=== PATIENT | female | born 1970 | race American Indian/Alaskan Native ===

== ENCOUNTER 2017-12-27 22:21 | Emergency (ER) | payer MEDICAID ==
[2017-12-27] MEDS ORDERED: MOTRIN ONE (22:48)
[2017-12-27] MEDS: TYLENOL PO ONE (22:57)
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
[2017-12-28 01:32] VITALS: BP 169/96
== END 2017-12-28 01:25 | disposition home or self-care (01) ==
LOC: ED 22:21
DX: S39.012A Strain of muscle, fascia and tendon of lower back, initial encounter (principal); S13.4XXA Sprain of ligaments of cervical spine, initial encounter; S86.911A Strain of unspecified muscle(s) and tendon(s) at lower leg level, right leg, initial encounter; S46.911A Strain of unspecified muscle, fascia and tendon at shoulder and upper arm level, right arm, initial encounter; I10 Essential (primary) hypertension; E11.9 Type 2 diabetes mellitus without complications; V49.49XA Driver injured in collision with other motor vehicles in traffic accident, initial encounter; Y93.89 Activity, other specified; Y92.89 Other specified places as the place of occurrence of the external cause; Y99.8 Other external cause status
CPT/HCPCS: 72040; 72100

== ENCOUNTER 2019-02-22 06:19 | Inpatient (IN) | payer MEDICARE ==
[2019-02-22] MEDS ORDERED: MORPHINE IV ONE (06:49)
--- NOTE | 2019-02-22 07:08 | Emergency Department Report ---
ED Chest Pain HPI - General Chief Complaint: Chest Pain Stated Complaint: RT SIDE LEG PAIN/SWELLING Time Seen by Provider: 02/22/19 06:44 Source: patient, EMS Mode of arrival: Stretcher Limitations: No Limitations - History of Present Illness Initial Comments: 49-year-old -[place] female presents to the emergency department from home with the complaints of severe right leg pain and chest pain. The right leg pain has been going on since yesterday and has been getting progressively worse and is associated with swelling of the right leg. There has been no trauma or injury to the affected right leg. She denies any skin color change, fluctuance, rash, lesions. She denies any recent surgery, immobility or any recent long car or plane rides. The patient says that the chest pain started earlier this morning but has gotten better and is mild currently. It is midsternal and nonradiating. She has a past medical history of diabetes, coronary artery disease with previous [place] and cardiac stents, end-stage renal disease not on hemodialysis and previous CVA without residual deficits. Her primary care physician is a Dr. Horn, billing assistant is Dr. Dixon and technology instructor is Dr. Lantigua. She took some Tylenol for her symptoms without any relief. She denies any tobacco or illicit drug use. Severity scale (0 -10): 10 - Related Data Home Medications Medication Instructions Recorded Confirmed Last Taken Carvedilol [Coreg] 25 mg PO BID 12/30/17 02/22/19 1 Day Ago ~02/21/19 Gabapentin [Neurontin] 100 mg PO TID 12/30/17 02/22/19 1 Day Ago ~02/21/19 Aspirin [Aspirin BABY CHEW TAB] 81 mg PO QDAY 02/22/19 02/22/19 1 Day Ago ~02/21/19 Bidil 20/37.5MG See Protocol PO TID 02/22/19 02/22/19 1 Day Ago ~02/21/19 Calcium Citrate/Vitamin D3 1 each PO DAILY 02/22/19 02/22/19 1 Day Ago [Calcitrate + Vit D Caplet] ~02/21/19 Insulin Aspart [NovoLOG 100 10 units SUB-Q TID 02/22/19 02/22/19 1 Day Ago UNITS/ML VIAL] ~02/21/19 Insulin Glargine [Lantus VIAL] 18 units SUB-Q HS 02/22/19 02/22/19 1 Day Ago ~02/21/19 Allergies Allergy/AdvReac Type Severity Reaction Status Date / Time ibuprofen [From Motrin] AdvReac Unknown Verified 12/27/17 22:53 lisinopril AdvReac Unknown Verified 02/22/19 07:08 sulfamethoxazole AdvReac Unknown Verified 12/27/17 22:53 [From Bactrim] trimethoprim [From Bactrim] AdvReac Unknown Verified 12/27/17 22:53 Heart Score - HEART Score History: Moderately suspicious EKG: Non-specific Age: 45-65 Risk factors: 1-2 risk factors Troponin: 1-3x normal limit HEART Score: 5 - Critical Actions Critical Actions: 4-6 pts:12-16.6% risk of adverse cardiac event. Should be admitted ED Review of Systems ROS: Stated complaint: RT SIDE LEG PAIN/SWELLING Other details as noted in HPI Comment: All other systems reviewed and negative Constitutional: denies: chills, fever Eyes: denies: eye pain, vision change ENT: denies: ear pain, throat pain Respiratory: denies: cough, shortness of breath Cardiovascular: chest pain, edema. denies: palpitations Gastrointestinal: denies: abdominal pain, nausea, vomiting Genitourinary: denies: dysuria, discharge Musculoskeletal: arthralgia, myalgia Skin: denies: rash, lesions Neurological: denies: headache, weakness, numbness, paresthesias ED Past Medical Hx - Past Medical History Previous Medical History?: Yes Hx Hypertension: Yes Hx Diabetes: Yes Hx Renal Disease: Yes Additional medical history: CHF, AMIx2 - Surgical History Past Surgical History?: Yes Additional Surgical History: tubal ligation, uterine ablation, multiple bilateral eye sx - Social History Smoking Status: Never Smoker Substance Use Type: None - Medications Home Medications: Home Medications Medication Instructions Recorded Confirmed Last Taken Type Carvedilol [Coreg] 25 mg PO BID 12/30/17 02/22/19 1 Day Ago History ~02/21/19 Gabapentin [Neurontin] 100 mg PO TID 12/30/17 02/22/19 1 Day Ago History ~02/21/19 Aspirin [Aspirin BABY CHEW TAB] 81 mg PO QDAY 02/22/19 02/22/19 1 Day Ago History ~02/21/19 Bidil 20/37.5MG See Protocol PO TID 02/22/19 02/22/19 1 Day Ago History ~02/21/19 Calcium Citrate/Vitamin D3 1 each PO DAILY 02/22/19 02/22/19 1 Day Ago History [Calcitrate + Vit D Caplet] ~02/21/19 Insulin Aspart [NovoLOG 100 10 units SUB-Q TID 02/22/19 02/22/19 1 Day Ago History UNITS/ML VIAL] ~02/21/19 Insulin Glargine [Lantus VIAL] 18 units SUB-Q HS 02/22/19 02/22/19 1 Day Ago History ~02/21/19 ED Physical Exam - General Limitations: No Limitations - Other Other exam information: GENERAL: The patient is well-developed well-nourished. HENT: Normocephalic. Atraumatic. Patient has moist mucous membranes. EYES: Extraocular motions are intact. NECK: Supple. Trachea is midline. CHEST/LUNGS: Clear to auscultation. There is no respiratory distress noted. HEART/CARDIOVASCULAR: Regular. There is no tachycardia. There is no murmur. ABDOMEN: Abdomen is soft, nontender. Patient has normal bowel sounds. There is no abdominal distention. SKIN: Skin is warm and dry. Mild to moderate right lower extremity nonpitting swelling. NEURO: The patient is awake, alert, and oriented. The patient is cooperative. The patient has no focal neurologic deficits. Normal speech. MUSCULOSKELETAL: There is tenderness to palpation along the entire length of the right lower extremity. There is no limitation range of motion. There is no evidence of acute injury. ED Course Vital Signs 02/22/19 02/22/19 02/22/19 06:25 06:30 07:23 Temperature 98.7 F Pulse Rate 87 Respiratory 18 18 18 Rate Blood Pressure 159/71 Blood Pressure 159/71 [Left] O2 Sat by Pulse 90 90 Oximetry 02/22/19 02/22/19 02/22/19 08:52 09:00 09:15 Temperature Pulse Rate 89 88 90 Respiratory 19 26 H Rate Blood Pressure 164/75 160/77 Blood Pressure [Left] O2 Sat by Pulse 86 80 L Oximetry 02/22/19 02/22/19 02/22/19 09:30 09:45 10:00 Temperature Pulse Rate 89 89 88 Respiratory 24 25 H 13 Rate Blood Pressure 167/79 153/76 147/81 Blood Pressure [Left] O2 Sat by Pulse 81 L 81 L 89 Oximetry 02/22/19 02/22/19 10:15 10:30 Temperature Pulse Rate 87 88 Respiratory 18 24 Rate Blood Pressure 168/82 157/79 Blood Pressure [Left] O2 Sat by Pulse 84 79 L Oximetry EDNA score - Edna Score Age > 65: (0) No Aspirin use within the Past 7 Days: (0) No 3 or more CAD Risk Factors: (1) Yes 2 or more Angina events in past 24 hrs: (0) No Known CAD with more than 50% Stenosis: (0) No Elevated Cardiac Markers: (1) Yes ST Deviation Greater than 0.5mm: (0) No EDNA Score: 2 ED Medical Decision Making - Lab Data Result diagrams: 02/22/19 07:31 02/22/19 07:31 - EKG Data -: EKG Interpreted by Me EKG shows normal: sinus rhythm, axis (Right axis deviation), intervals, QRS complexes (RVH), ST-T waves Rate: normal - EKG Data When compared to previous EKG there are: no significant change Interpretation: unchanged when compared t (12/30/17) - Radiology Data Radiology results: report reviewed, image reviewed interpreted by me: Chest x-ray does not show any acute process. There are no pleural effusions, obvious pneumonia and there is no pneumothorax. VL venous duplex LE BILAT INDICATION / CLINICAL INFORMATION: LE pain and swelling. COMPARISON: None available. FINDINGS: No evidence of deep vein thrombosis IMPRESSION: 1. No evidence of deep vein thrombosis. Ventilation/perfusion lung scan HISTORY: Chest pain. Elevated d-dimer. Compared with 01/01/2018. Images following inhalation of 14.2 mCi xenon gas demonstrate relatively homogeneous uptake throughout both lungs. Perfusion images, performed following intravenous injection of 6.2 mCi technetium MAA, also show fairly homogeneous activity throughout both lungs. The heart is enlarged. Images are compared with chest radiograph done earlier today. IMPRESSION: Low probability of pulmonary embolus. - Medical Decision Making This patient presents with a 24-hour history of right leg pain and swelling and some more recent midsternal chest pain. Venous Doppler ultrasound of the right lower extremity was negative for DVT. She did have an elevated d-dimer so a VQ scan was done and came back low probability for a PE. Chest x-ray did not appear to show any obvious acute process but was read by radiology as a possible right lateral linear density that could show some infiltrate. Patient has an elevated troponin but does have a history of chronic kidney disease. She has a moderate heart score. The patient will be admitted to the hospital for further evaluation and treatment was accepted for admission by the hospitalist service and Dr Sorto. - Differential Diagnosis FL, DVT, Pneumonia, PE Critical Care Time: No Critical care attestation.: If time is entered above; I have spent that time in minutes in the direct care of this critically ill patient, excluding procedure time. ED Disposition Clinical Impression: Acute chest pain, Right leg pain, Right leg swelling CKD (chronic kidney disease) Qualifiers: Chronic kidney disease stage: unspecified stage Qualified Code(s): N18.9 - Chronic kidney disease, unspecified HTN (hypertension) Qualifiers: Hypertension type: essential hypertension Qualified Code(s): I10 - Essential (primary) hypertension Disposition: OP ADMIT IP TO THIS HOSP Is pt being admited?: Yes Condition: Fair Time of Disposition: 10:21
--- NOTE | 2019-02-22 07:42 | XRay Report ---
CHEST 1 VIEW 0718 INDICATION / CLINICAL INFORMATION: CP. COMPARISON: 12/30/2017 FINDINGS: SUPPORT DEVICES: None HEART / MEDIASTINUM: Mild cardiomegaly LUNGS / PLEURA: Poor degree of inspiration is seen. Increasing density is noted in the left base, par ticularly laterally, which may represent developing infiltrate. There may also be a small left pleura l effusion. Right lung field is clear. No pneumothorax. ADDITIONAL FINDINGS: No significant additional findings. IMPRESSION: Development distally in the left base as above. Recommend follow-up. Signer Name: Bobby Sorto MD Signed: 02/22/2019 7:37 AM Workstation Name: [id number]
[2019-02-22 08:09] LABS: Albumin 2.8 g/dL (3.9-5); Calcium 9.2 mg/dL (8.4-10.2)
[2019-02-22 08:51] LABS: INR 1.15 (0.87-1.13); Partial Thromboplastin Time 30.4 Sec. (24.2-36.6)
[2019-02-22 08:56] LABS: Basophils # (Auto) 0.1 K/mm3 (0.0-0.1); Basophils % (Auto) 0.7 % (0.0-1.8); Eosinophils # (Auto) 0.2 K/mm3 (0.0-0.4); Hematocrit 32.5 % (30.3-42.9); Hemoglobin 10.8 gm/dl (10.1-14.3); Lymphocytes # (Auto) 0.9 K/mm3 (1.2-5.4); Mean Corpuscular HGB Conc 33 % (30-34); Mean Corpuscular Volume 89 fl (79-97); Monocytes # (Auto) 0.9 K/mm3 (0.0-0.8); Monocytes % (Auto) 10.7 % (0.0-7.3); Platelet Count 213 K/mm3 (140-440); Red Blood Count 3.67 M/mm3 (3.65-5.03); Red Cell Distribution Width 17.1 % (13.2-15.2)
--- NOTE | 2019-02-22 09:05 | Vascular Lab Report ---
VL venous duplex LE BILAT INDICATION / CLINICAL INFORMATION: LE pain and swelling. COMPARISON: None available. FINDINGS: No evidence of deep vein thrombosis IMPRESSION: 1. No evidence of deep vein thrombosis. Signer Name: Uday Salinas MD Signed: 02/22/2019 9:01 AM Workstation Name: [email or web address]
--- NOTE | 2019-02-22 11:47 | Nuclear Medicine Report ---
Ventilation/perfusion lung scan HISTORY: Chest pain. Elevated d-dimer. Compared with 01/01/2018. Images following inhalation of 14.2 mCi xenon gas demonstrate relatively homogeneous uptake throughou t both lungs. Perfusion images, performed following intravenous injection of 6.2 mCi technetium MAA, also show fair ly homogeneous activity throughout both lungs. The heart is enlarged. Images are compared with chest radiograph done earlier today. IMPRESSION: Low probability of pulmonary embolus. Signer Name: Uday Salinas MD Signed: 02/22/2019 11:43 AM Workstation Name: [id number]
[2019-02-22] MEDS ORDERED: D50W (25GM) Syringe IV PRN (12:39)
[2019-02-22] MEDS ORDERED: TYLENOL PO PRN (12:39)
[2019-02-22] MEDS ORDERED: SODIUM CHLORIDE FLUSH SYRINGE 10 ML IV PRN (12:39)
[2019-02-22] MEDS ORDERED: ZOFRAN IV PRN (12:39)
--- NOTE | 2019-02-22 12:53 | Progress Note ---
Assessment and Plan Assessment and plan: Chest pain. Patient will be placed on a chest pain protocol and monitor closely. Follow-up cardiac isoenzymes and serial EKGs. Cardiology consultation. I suspect pain may be later costochondritis. Pain is reproducible on palpation. Acute gouty arthritis. Given her renal disease we will start prednisone daily. ESRD, not on HD. Patient was pre-was seen by Dr. Abraham on last hospitalization. Consult nephrology. Metabolic acidosis. Secondary to renal disease. Continue to monitor. Chronic systolic heart failure. Compensated. Continue home medications. Type 2 diabetes mellitus; Accu-Chek sliding scale coverage and ADA diet and insulin Diabetic neuropathy; supportive care and, gabapentin Hypertension; moderate control, continue current antihypertensives and when necessary medications Morbid obesity; BMI 42.5; diet modification and exercise as tolerated with weight reduction when medically stable History Interval history: 49-year-old -[place] female with a past medical history of diabetes, gout, coronary artery disease with previous [place] and cardiac stents, end-stage renal disease not on hemodialysis and previous CVA without residual deficits who presents to the emergency department from home with the complaints of severe ri ght leg pain and chest pain. The right leg pain has been going on since yesterday and has been getting progressively worse and is associated with swelling of the right foot. There has been no trauma or injury to the right foot. She denies any skin color change, fluctuance, rash, lesions. She denies any recent surgery, immobility or any recent long car or plane rides. The patient says that the chest pain started earlier this morning but has gotten better and is mild currently. It is midsternal and nonradiating. The patient reports reproducible chest pain with palpation on my exam. Her primary care physician is a Dr. Horn, brush hand is Dr. Dixon and caustic mixer is Dr. Lantigua. She took some Tylenol for her symptoms without any relief. She denies any tobacco or illicit drug use. The patient reports that her right foot pain is similar to her gout but much worse. Patient denies any fever or chills. Hospitalist Physical - Constitutional Vitals: Temp Pulse Resp BP Pulse Ox 98.6 F 83 18 145/67 92 02/22/19 12:35 02/22/19 12:35 02/22/19 12:35 02/22/19 12:35 02/22/19 12:35 General appearance: Present: no acute distress, well-nourished - EENT Eyes: Present: PERRL, EOM intact ENT: hearing intact, clear oral mucosa, dentition normal - Neck Neck: Present: supple, normal ROM - Respiratory Respiratory effort: normal Respiratory: bilateral: CTA - Cardiovascular Rhythm: regular Heart Sounds: Present: S1 & S2. Absent: gallop, rub - Extremities Extremities: no ischemia, No edema, Full ROM Extremity abnormal: edema (right foot), tenderness (right foot) - Abdominal General gastrointestinal: soft, non-tender, non-distended, normal bowel sounds - Integumentary Integumentary: Present: clear, warm, dry - Neurologic Neurologic: CNII-XII intact, moves all extremities Results - Labs CBC & Chem 7: 02/22/19 07:31 02/22/19 07:31 Labs: Laboratory Last Values WBC 8.4 K/mm3 (4.5-11.0) 02/22/19 07:31 RBC 3.67 M/mm3 (3.65-5.03) 02/22/19 07:31 Hgb 10.8 gm/dl (10.1-14.3) 02/22/19 07:31 Hct 32.5 % (30.3-42.9) 02/22/19 07:31 MCV 89 fl (79-97) 02/22/19 07:31 MCH 29 pg (28-32) 02/22/19 07:31 MCHC 33 % (30-34) 02/22/19 07:31 RDW 17.1 % (13.2-15.2) H 02/22/19 07:31 Plt Count 213 K/mm3 (140-440) 02/22/19 07:31 Lymph % (Auto) 11.0 % (13.4-35.0) L 02/22/19 07:31 Josephine % (Auto) 10.7 % (0.0-7.3) H 02/22/19 07:31 Eos % (Auto) 2.0 % (0.0-4.3) 02/22/19 07:31 Baso % (Auto) 0.7 % (0.0-1.8) 02/22/19 07:31 Lymph # 0.9 K/mm3 (1.2-5.4) L 02/22/19 07:31 Josephine # 0.9 K/mm3 (0.0-0.8) H 02/22/19 07:31 Eos # 0.2 K/mm3 (0.0-0.4) 02/22/19 07:31 Baso # 0.1 K/mm3 (0.0-0.1) 02/22/19 07:31 Seg Neutrophils % 75.6 % (40.0-70.0) H 02/22/19 07:31 Seg Neutrophils # 6.3 K/mm3 (1.8-7.7) 02/22/19 07:31 PT 14.4 Sec. (12.2-14.9) 02/22/19 07:31 INR 1.15 (0.87-1.13) H 02/22/19 07:31 APTT 30.4 Sec. (24.2-36.6) 02/22/19 07:31 874.61 ng/mlDDU (0-234) H 02/22/19 07:31 Sodium 136 mmol/L (137-145) L 02/22/19 07:31 Potassium 4.2 mmol/L (3.6-5.0) 02/22/19 07:31 Chloride 103.8 mmol/L (98-107) 02/22/19 07:31 Carbon Dioxide 16 mmol/L (22-30) L 02/22/19 07:31 20 mmol/L 02/22/19 07:31 BUN 55 mg/dL (7-17) H 02/22/19 07:31 4.5 mg/dL (0.7-1.2) H 02/22/19 07:31 Estimated GFR 13 ml/min 02/22/19 07:31 12 % 02/22/19 07:31 Glucose 168 mg/dL (65-100) H 02/22/19 07:31 Calcium 9.2 mg/dL (8.4-10.2) 02/22/19 07:31 0.60 mg/dL (0.1-1.2) 02/22/19 07:31 AST 11 units/L (5-40) 02/22/19 07:31 ALT 14 units/L (7-56) 02/22/19 07:31 68 units/L (35-129) 02/22/19 07:31 0.059 ng/mL (0.00-0.029) H 02/22/19 09:33 6.8 g/dL (6.3-8.2) 02/22/19 07:31 2.8 g/dL (3.9-5) L 02/22/19 07:31 0.7 % 02/22/19 07:31 Triglycerides 103 mg/dL (2-149) 02/22/19 07:31 Cholesterol 164 mg/dL (50-199) 02/22/19 07:31 116 mg/dL (50-130) 02/22/19 07:31 41 mg/dL (40-59) 02/22/19 07:31 4.00 % 02/22/19 07:31 Active Medications - Current Medications Current Medications: Generic Name Dose Route Start Last Admin Trade Name Freq PRN Reason Stop Dose Admin Acetaminophen 650 mg 02/22/19 12:39 Tylenol PO Q4H PRN Pain MILD(1-3)/Fever >100.5/AMARO Dextrose 50 ml 02/22/19 12:39 D50w (25gm) Syringe IV PRN PRN Hypoglycemia Enoxaparin Sodium 40 mg 02/23/19 10:00 Lovenox SUB-Q QDAY MARISSA Ondansetron HCl 4 mg 02/22/19 12:39 Zofran IV Q8H PRN Nausea And Vomiting Prednisone 40 mg 02/23/19 10:00 Deltasone PO QDAY MARISSA Sodium Chloride 10 ml 02/22/19 22:00 Sodium Chloride Flush Syringe 10 Ml IV BID MARISSA Sodium Chloride 10 ml 02/22/19 12:39 Sodium Chloride Flush Syringe 10 Ml IV PRN PRN LINE FLUSH
[2019-02-22] MEDS: MORPHINE IV PRN (14:11)
--- NOTE | 2019-02-22 14:39 | Consultation ---
History of Present Illness Consult date: 02/22/19 Requesting physician: ESE SPENCER Consult reason: chest pain History of present illness: Ms. Nathan is a 49 y/o female with a medical history significant for CAD s/p PCI (~2014), DC, chronic HFrEF, CKD, a family history of CAD (mother), hypertension, h/o CVA and diabetes who presented to [facility] with midsternal chest pain and right leg pain/swelling. She follows with a multimedia authoring specialist at [place]. The CP began early this morning, is nonradiating and is reproducible on palpation. It occurs with activity and at rest. She denies accompanyint SOB. Troponins mildly elevated, but flat. VQ scan shows low probability for PE and RLE US negative for DVT. EKG unremarkable. An echocardiogram in 2019 found an of EF 25-30%, a small circumferential pericardial effusion, grade 3 diastolic dysfunction and [id number] MR. Past History Past Medical History: CAD, diabetes, GERD, heart failure, hypertension, stroke Medications and Allergies Allergies Allergy/AdvReac Type Severity Reaction Status Date / Time ibuprofen [From Motrin] AdvReac Unknown Verified 12/27/17 22:53 lisinopril AdvReac Unknown Verified 02/22/19 07:08 sulfamethoxazole AdvReac Unknown Verified 12/27/17 22:53 [From Bactrim] trimethoprim [From Bactrim] AdvReac Unknown Verified 12/27/17 22:53 Home Medications Medication Instructions Recorded Confirmed Last Taken Type Carvedilol [Coreg] 25 mg PO BID 12/30/17 02/22/19 1 Day Ago History ~02/21/19 Gabapentin [Neurontin] 100 mg PO TID 12/30/17 02/22/19 1 Day Ago History ~02/21/19 Aspirin [Aspirin BABY CHEW TAB] 81 mg PO QDAY 02/22/19 02/22/19 1 Day Ago History ~02/21/19 Bidil 20/37.5MG See Protocol PO TID 02/22/19 02/22/19 1 Day Ago History ~02/21/19 Calcium Citrate/Vitamin D3 1 each PO DAILY 02/22/19 02/22/19 1 Day Ago History [Calcitrate + Vit D Caplet] ~02/21/19 Insulin Aspart [NovoLOG 100 10 units SUB-Q TID 02/22/19 02/22/19 1 Day Ago History UNITS/ML VIAL] ~02/21/19 Insulin Glargine [Lantus VIAL] 18 units SUB-Q HS 02/22/19 02/22/19 1 Day Ago History ~02/21/19 Active Meds: Active Medications Acetaminophen (Tylenol) 650 mg PO Q4H PRN PRN Reason: Pain MILD(1-3)/Fever >100.5/AMARO Dextrose (D50w (25gm) Syringe) 50 ml IV PRN PRN PRN Reason: Hypoglycemia Enoxaparin Sodium (Lovenox) 30 mg SUB-Q QDAY MARISSA Morphine Sulfate (Morphine) 2 mg IV Q6H PRN PRN Reason: Pain, Moderate (4-6) Last Admin: 02/22/19 14:11 Dose: 2 mg Documented by: Ondansetron HCl (Zofran) 4 mg IV Q8H PRN PRN Reason: Nausea And Vomiting Pneumococcal Polyvalent Vaccine (Pneumovax 23) 0.5 ml IM .ONCE ONE Stop: 02/23/19 12:01 Prednisone (Deltasone) 40 mg PO QDAY MARISSA Sodium Chloride (Sodium Chloride Flush Syringe 10 Ml) 10 ml IV BID MARISSA Sodium Chloride (Sodium Chloride Flush Syringe 10 Ml) 10 ml IV PRN PRN PRN Reason: LINE FLUSH Review of Systems All systems: negative Cardiovascular: chest pain Physical Examination Vital Signs Temp Pulse Resp BP Pulse Ox 98.7 F 87 18 159/71 90 02/22/19 06:25 02/22/19 06:25 02/22/19 06:25 02/22/19 06:25 02/22/19 06:25 General appearance: no acute distress HEENT: Positive: PERRL Neck: Positive: trachea midline Cardiac: Positive: Reg Rate and Rhythm Lungs: Positive: Normal Exam Neuro: Positive: Grossly Intact Abdomen: Positive: Unremarkable Female genitourinary: deferred Skin: Positive: Clear Musculoskeletal: other (tenderness in RLE) Extremities: Present: Other (tenderness in RLE ) Results 02/22/19 07:31 02/22/19 07:31 Cardiac Enzymes 02/22/19 Range/Units 07:31 AST 11 (5-40) units/L Coagulation 02/22/19 Range/Units 07:31 PT 14.4 (12.2-14.9) Sec. INR 1.15 H (0.87-1.13) APTT 30.4 (24.2-36.6) Sec. Lipids 02/22/19 Range/Units 07:31 Triglycerides 103 (2-149) mg/dL Cholesterol 164 (50-199) mg/dL HDL Cholesterol 41 (40-59) mg/dL Cholesterol/HDL Ratio 4.00 % CBC 02/22/19 Range/Units 07:31 WBC 8.4 (4.5-11.0) K/mm3 RBC 3.67 (3.65-5.03) M/mm3 Hgb 10.8 (10.1-14.3) gm/dl Hct 32.5 (30.3-42.9) % Plt Count 213 (140-440) K/mm3 Lymph # 0.9 L (1.2-5.4) K/mm3 [place] # 0.9 H (0.0-0.8) K/mm3 Eos # 0.2 (0.0-0.4) K/mm3 Baso # 0.1 (0.0-0.1) K/mm3 Comprehensive Metabolic Panel 02/22/19 Range/Units 07:31 Sodium 136 L (137-145) mmol/L Potassium 4.2 (3.6-5.0) mmol/L Chloride 103.8 (98-107) mmol/L Carbon Dioxide 16 L (22-30) mmol/L BUN 55 H (7-17) mg/dL Creatinine 4.5 H (0.7-1.2) mg/dL Glucose 168 H (65-100) mg/dL Calcium 9.2 (8.4-10.2) mg/dL AST 11 (5-40) units/L ALT 14 (7-56) units/L Alkaline Phosphatase 68 (35-129) units/L Total Protein 6.8 (6.3-8.2) g/dL Albumin 2.8 L (3.9-5) g/dL - Imaging and Cardiology Echo: report reviewed (10/2018: EF 25-30%, small circumferential pericarcdial effusion, grade 3 diastolic dysfunction, mod-to-sev MR) - EKG Interpretation EKG: sinus rhythm EKG interpretations - Telemetry EKG Rhythm: Sinus Rhythm - EKG Sinus rhythms and dysrhythmias: sinus rhythm Chamber hypertrophy or enlargement: righ ventricular hypertro Assessment and Plan Ms. Nathan is a 49 y/o female admitted with CP. Etiology is likely noncardiac given its presentation. Troponins mildly elevated and flat, which is likely d/t renal dysfunction. Continue current cardiac management for chronic HFrEF, but hold ACEi/ARB d/t allergy and renal insufficiency. Continue BiDil as well. The patient has been seen in conjunction with Dr. Alexandra, who agrees with the assessment and plan. - Patient Problems (1) Atypical chest pain Current Visit: Yes Status: Acute (2) CKD (chronic kidney disease) Current Visit: Yes Status: Chronic Qualifiers: Chronic kidney disease stage: unspecified stage Qualified Code(s): N18.9 - Chronic kidney disease, unspecified (3) Diabetes Current Visit: Yes Status: Acute (4) Chronic HFrEF (heart failure with reduced ejection fraction) Current Visit: Yes Status: Chronic (5) HTN (hypertension) Current Visit: Yes Status: Chronic Qualifiers: Hypertension type: essential hypertension Qualified Code(s): I10 - Essenti al (primary) hypertension (6) Right leg pain Current Visit: Yes Status: Acute (7) Right leg swelling Current Visit: Yes Status: Acute (8) H/O: CVA (cerebrovascular accident) Current Visit: Yes Status: Acute
[2019-02-22] MEDS: BABY ASPIRIN PO SCH (15:55)
[2019-02-22] MEDS: SODIUM CHLORIDE FLUSH SYRINGE 10 ML IV SCH (22:26)
[2019-02-22] MEDS: COREG PO SCH (22:26)
[2019-02-22] MEDS: BIDIL 20/37.5MG PO SCH (22:26)
[2019-02-23] MEDS: MORPHINE IV PRN ×3 (05:06→22:39)
[2019-02-23] MEDS: BIDIL 20/37.5MG PO SCH ×3 (05:10→22:42)
[2019-02-23 06:04] LABS: Basophils # (Auto) 0.1 K/mm3 (0.0-0.1); Basophils % (Auto) 0.8 % (0.0-1.8); Eosinophils # (Auto) 0.3 K/mm3 (0.0-0.4); Eosinophils % (Auto) 4.2 % (0.0-4.3); Hematocrit 30.7 % (30.3-42.9); Lymphocytes # (Auto) 1.1 K/mm3 (1.2-5.4); Lymphocytes % (Auto) 15.7 % (13.4-35.0); Mean Corpuscular HGB Conc 33 % (30-34); Mean Corpuscular Volume 89 fl (79-97); Monocytes # (Auto) 0.8 K/mm3 (0.0-0.8); Monocytes % (Auto) 11.7 % (0.0-7.3); Platelet Count 192 K/mm3 (140-440); Red Blood Count 3.43 M/mm3 (3.65-5.03); Red Cell Distribution Width 16.9 % (13.2-15.2)
[2019-02-23 06:10] LABS: Calcium 8.8 mg/dL (8.4-10.2)
--- NOTE | 2019-02-23 09:37 | Consultation ---
History of Present Illness - Reason for Consult Consult date: 02/23/19 chronic renal failure - History of Present Illness patient with h/o CKD stage IV/V follow with vp biology in [place], s/p AVF placement in 12/2018, she saw her vp biology 3 weeks ago and was told she had advanced kidney disease but did not need dialysis yet, she was admitted yesterday for chest pain, V/Q scan was negative for PE< BLE Doppler negative for DVT and XR -v3 for PNA, cardiology consulted for chest pain work up and nephrology consult requested for advanced CKD Past History Past Medical History: CAD, diabetes, GERD, heart failure, hypertension, stroke Medications and Allergies Allergies Allergy/AdvReac Type Severity Reaction Status Date / Time ibuprofen [From Motrin] AdvReac Unknown Verified 12/27/17 22:53 lisinopril AdvReac Unknown Verified 02/22/19 07:08 sulfamethoxazole AdvReac Unknown Verified 12/27/17 22:53 [From Bactrim] trimethoprim [From Bactrim] AdvReac Unknown Verified 12/27/17 22:53 Home Medications Medication Instructions Recorded Confirmed Last Taken Type Carvedilol [Coreg] 25 mg PO BID 12/30/17 02/22/19 1 Day Ago History ~02/21/19 Gabapentin [Neurontin] 100 mg PO TID 12/30/17 02/22/19 1 Day Ago History ~02/21/19 Aspirin [Aspirin BABY CHEW TAB] 81 mg PO QDAY 02/22/19 02/22/19 1 Day Ago History ~02/21/19 Bidil 20/37.5MG See Protocol PO TID 02/22/19 02/22/19 1 Day Ago History ~02/21/19 Calcium Citrate/Vitamin D3 1 each PO DAILY 02/22/19 02/22/19 1 Day Ago History [Calcitrate + Vit D Caplet] ~02/21/19 Insulin Aspart [NovoLOG 100 10 units SUB-Q TID 02/22/19 02/22/19 1 Day Ago History UNITS/ML VIAL] ~02/21/19 Insulin Glargine [Lantus VIAL] 18 units SUB-Q HS 02/22/19 02/22/19 1 Day Ago History ~02/21/19 Active Meds: Active Medications Acetaminophen (Tylenol) 650 mg PO Q4H PRN PRN Reason: Pain MILD(1-3)/Fever >100.5/AMARO Aspirin (Baby Aspirin) 81 mg PO QDAY [facility] Last Admin: 02/22/19 15:55 Dose: 81 mg Documented by: Carvedilol (Coreg) 25 mg PO BID [facility] Last Admin: 02/22/19 22:26 Dose: 25 mg Documented by: Dextrose (D50w (25gm) Syringe) 50 ml IV PRN PRN PRN Reason: Hypoglycemia Enoxaparin Sodium (Lovenox) 30 mg SUB-Q QDAY [facility] Isosorbide Dinitrate/Hydralazine (Bidil 20/37.5mg) 1 each PO Q8HR [facility] Last Admin: 02/23/19 05:10 Dose: 1 each Documented by: Morphine Sulfate (Morphine) 2 mg IV Q6H PRN PRN Reason: Pain, Moderate (4-6) Last Admin: 02/23/19 05:06 Dose: 2 mg Documented by: Ondansetron HCl (Zofran) 4 mg IV Q8H PRN PRN Reason: Nausea And Vomiting Pneumococcal Polyvalent Vaccine (Pneumovax 23) 0.5 ml IM .ONCE ONE Stop: 02/23/19 12:01 Prednisone (Deltasone) 40 mg PO QDAY [facility] Sodium Chloride (Sodium Chloride Flush Syringe 10 Ml) 10 ml IV BID [facility] Last Admin: 02/22/19 22:26 Dose: 10 ml Documented by: Sodium Chloride (Sodium Chloride Flush Syringe 10 Ml) 10 ml IV PRN PRN PRN Reason: LINE FLUSH Review of Systems All systems: negative (chest pain) Exam - Vital Signs Vital signs: Vital Signs Temp Pulse Resp BP Pulse Ox 98.7 F 87 18 159/71 90 02/22/19 06:25 02/22/19 06:25 02/22/19 06:25 02/22/19 06:25 02/22/19 06:25 - General Appearance General appearance: well-developed, well-nourished, appears stated age EENT: ATNC, PERRL, mucous membranes moist Neck: Present: neck supple Respiratory: Decreased Breath Sounds Heart: regular, S1S2 Gastrointestinal: Present: normoactive bowel sounds Integumentary: no rash, warm and dry Neurologic: no focal deficit, no asterixis, alert and oriented x3 Musculoskeletal: Present: other (trace pitting edema in BLE) Psychiatric: mood/affect appropriate, cooperative Results - Lab Results 02/23/19 04:50 02/23/19 04:50 Most recent lab results Calcium 8.8 mg/dL (8.4-10.2) 02/23/19 04:50 Assessment and Plan CKD stabe IV/V secondary to HTN, unknown baseline, not on HD, s/p AVF placement in 12/2018 Chest pain, per cardiology likely non-cardiac Anemia in CKD HTN AG metabolic acidosis - no indication for [employer] CRACK OFF - will check iron panel in AM, no indication for PACHECO - will start sodium bicarb 650 mg TID - urine lytes ordered - renally dose meds - strict I&O - daily weight Temo Abraham MD [phone]
--- NOTE | 2019-02-23 09:42 | History and Physical Report ---
History of Present Illness Date of examination: 02/22/19 Date of admission: 02/22/19 10:21 Chief complaint: cp and Right foot pain History of present illness: 49-year-old -[place] female with a past medical history of diabetes, gout, coronary artery disease with previous [place] and cardiac stents, end-stage renal disease not on hemodialysis and previous CVA without residual deficits who presents to the emergency department from home with the complaints of severe right leg pain and chest pain. The right leg pain has been going on since yesterday and has been getting progressively worse and is associated with swelling of the right foot. There has been no trauma or injury to the right foot. She denies any skin color change, fluctuance, rash, lesions. She denies any recent surgery, immobility or any recent long car or plane rides. The patient says that the chest pain started earlier this morning but has gotten better and is mild currently. It is midsternal and nonradiating. The patient reports reproducible chest pain with palpation on my exam. Her primary care physician is a Dr. Horn, fast brim pouncer is Dr. Dixon and stove cleaner is Dr. Lantigua. She took some Tylenol for her symptoms without any relief. She denies any tobacco or illicit drug use. The patient reports that her right foot pain is similar to her gout but much worse. Patient denies any fever or chills. Past History Past Medical History: CAD, diabetes, GERD, heart failure, hypertension, stroke Medications and Allergies Allergies Allergy/AdvReac Type Severity Reaction Status Date / Time ibuprofen [From Motrin] AdvReac Unknown Verified 12/27/17 22:53 lisinopril AdvReac Unknown Verified 02/22/19 07:08 sulfamethoxazole AdvReac Unknown Verified 12/27/17 22:53 [From Bactrim] trimethoprim [From Bactrim] AdvReac Unknown Verified 12/27/17 22:53 Home Medications Medication Instructions Recorded Confirmed Last Taken Type Carvedilol [Coreg] 25 mg PO BID 12/30/17 02/22/19 1 Day Ago History ~02/21/19 Gabapentin [Neurontin] 100 mg PO TID 12/30/17 02/22/19 1 Day Ago History ~02/21/19 Aspirin [Aspirin BABY CHEW TAB] 81 mg PO QDAY 02/22/19 02/22/19 1 Day Ago History ~02/21/19 Bidil 20/37.5MG See Protocol PO TID 02/22/19 02/22/19 1 Day Ago History ~02/21/19 Calcium Citrate/Vitamin D3 1 each PO DAILY 02/22/19 02/22/19 1 Day Ago History [Calcitrate + Vit D Caplet] ~02/21/19 Insulin Aspart [NovoLOG 100 10 units SUB-Q TID 02/22/19 02/22/19 1 Day Ago History UNITS/ML VIAL] ~02/21/19 Insulin Glargine [Lantus VIAL] 18 units SUB-Q HS 02/22/19 02/22/19 1 Day Ago History ~02/21/19 Active Meds: Active Medications Acetaminophen (Tylenol) 650 mg PO Q4H PRN PRN Reason: Pain MILD(1-3)/Fever >100.5/AMARO Aspirin (Baby Aspirin) 81 mg PO QDAY [facility] Last Admin: 02/22/19 15:55 Dose: 81 mg Documented by: Carvedilol (Coreg) 25 mg PO BID [facility] Last Admin: 02/22/19 22:26 Dose: 25 mg Documented by: Dextrose (D50w (25gm) Syringe) 50 ml IV PRN PRN PRN Reason: Hypoglycemia Enoxaparin Sodium (Lovenox) 30 mg SUB-Q QDAY [facility] Isosorbide Dinitrate/Hydralazine (Bidil 20/37.5mg) 1 each PO Q8HR [facility] Last Admin: 02/23/19 05:10 Dose: 1 each Documented by: Morphine Sulfate (Morphine) 2 mg IV Q6H PRN PRN Reason: Pain, Moderate (4-6) Last Admin: 02/23/19 05:06 Dose: 2 mg Documented by: Ondansetron HCl (Zofran) 4 mg IV Q8H PRN PRN Reason: Nausea And Vomiting Pneumococcal Polyvalent Vaccine (Pneumovax 23) 0.5 ml IM .ONCE ONE Stop: 02/23/19 12:01 Prednisone (Deltasone) 40 mg PO QDAY [facility] Sodium Chloride (Sodium Chloride Flush Syringe 10 Ml) 10 ml IV BID [facility] Last Admin: 02/22/19 22:26 Dose: 10 ml Documented by: Sodium Chloride (Sodium Chloride Flush Syringe 10 Ml) 10 ml IV PRN PRN PRN Reason: LINE FLUSH Review of Systems All systems: negative Exam - Constitutional Vitals: Temp Pulse Resp BP Pulse Ox 99.0 F 83 18 142/67 88 02/23/19 08:01 02/23/19 08:01 02/23/19 08:01 02/23/19 08:01 02/23/19 08:01 General appearance: Present: no acute distress, well-nourished - EENT Eyes: Present: PERRL ENT: hearing intact, clear oral mucosa - Neck Neck: Present: supple, normal ROM - Respiratory Respiratory effort: normal Respiratory: bilateral: CTA - Cardiovascular Heart Sounds: Present: S1 & S2. Absent: rub, click - Extremities Extremities: pulses symmetrical Extremity abnormal: edema (right foot), tenderness (right foot) Peripheral Pulses: within normal limits - Abdominal General gastrointestinal: Present: soft, non-tender, non-distended, normal bowel sounds Female genitourinary: Present: normal - Integumentary Integumentary: Present: clear, warm, dry - Musculoskeletal Musculoskeletal: gait normal, strength equal bilaterally - Psychiatric Psychiatric: appropriate mood/affect, intact judgment & insight - Neurologic Neurologic: CNII-XII intact, moves all extremities Results - Labs CBC & Chem 7: 02/23/19 04:50 02/23/19 04:50 Labs: Laboratory Last Values WBC 7.0 K/mm3 (4.5-11.0) 02/23/19 04:50 RBC 3.43 M/mm3 (3.65-5.03) L 02/23/19 04:50 Hgb 10.0 gm/dl (10.1-14.3) L 02/23/19 04:50 Hct 30.7 % (30.3-42.9) 02/23/19 04:50 MCV 89 fl (79-97) 02/23/19 04:50 MCH 29 pg (28-32) 02/23/19 04:50 MCHC 33 % (30-34) 02/23/19 04:50 RDW 16.9 % (13.2-15.2) H 02/23/19 04:50 Plt Count 192 K/mm3 (140-440) 02/23/19 04:50 Lymph % (Auto) 15.7 % (13.4-35.0) 02/23/19 04:50 [place] % (Auto) 11.7 % (0.0-7.3) H 02/23/19 04:50 Eos % (Auto) 4.2 % (0.0-4.3) 02/23/19 04:50 Baso % (Auto) 0.8 % (0.0-1.8) 02/23/19 04:50 Lymph # 1.1 K/mm3 (1.2-5.4) L 02/23/19 04:50 [place] # 0.8 K/mm3 (0.0-0.8) 02/23/19 04:50 Eos # 0.3 K/mm3 (0.0-0.4) 02/23/19 04:50 Baso # 0.1 K/mm3 (0.0-0.1) 02/23/19 04:50 Seg Neutrophils % 67.6 % (40.0-70.0) 02/23/19 04:50 Seg Neutrophils # 4.8 K/mm3 (1.8-7.7) 02/23/19 04:50 PT 14.4 Sec. (12.2-14.9) 02/22/19 07:31 INR 1.15 (0.87-1.13) H 02/22/19 07:31 APTT 30.4 Sec. (24.2-36.6) 02/22/19 07:31 874.61 ng/mlDDU (0-234) H 02/22/19 07:31 Sodium 136 mmol/L (137-145) L 02/23/19 04:50 Potassium 4.3 mmol/L (3.6-5.0) 02/23/19 04:50 Chloride 104.3 mmol/L (98-107) 02/23/19 04:50 Carbon Dioxide 20 mmol/L (22-30) L 02/23/19 04:50 16 mmol/L 02/23/19 04:50 BUN 60 mg/dL (7-17) H 02/23/19 04:50 4.9 mg/dL (0.7-1.2) H 02/23/19 04:50 Estimated GFR 11 ml/min 02/23/19 04:50 12 % 02/23/19 04:50 Glucose 150 mg/dL (65-100) H 02/23/19 04:50 POC Glucose 173 (70-105) H 02/23/19 08:46 Calcium 8.8 mg/dL (8.4-10.2) 02/23/19 04:50 0.60 mg/dL (0.1-1.2) 02/22/19 07:31 AST 11 units/L (5-40) 02/22/19 07:31 ALT 14 units/L (7-56) 02/22/19 07:31 68 units/L (35-129) 02/22/19 07:31 0.063 ng/mL (0.00-0.029) H 02/22/19 12:42 6.8 g/dL (6.3-8.2) 02/22/19 07:31 2.8 g/dL (3.9-5) L 02/22/19 07:31 0.7 % 02/22/19 07:31 Triglycerides 103 mg/dL (2-149) 02/22/19 07:31 Cholesterol 164 mg/dL (50-199) 02/22/19 07:31 116 mg/dL (50-130) 02/22/19 07:31 41 mg/dL (40-59) 02/22/19 07:31 4.00 % 02/22/19 07:31 Assessment and Plan Assessment and plan: Chest pain. Patient will be placed on a chest pain protocol and monitor closely. Follow-up cardiac isoenzymes and serial EKGs. Cardiology consultation. I suspect pain may be later costochondritis. Pain is reproducible on palpation. Acute gouty arthritis. Given her renal disease we will start prednisone daily. ESRD, not on HD. Patient was pre-was seen by Dr. Abraham on last hospitalization. Consult nephrology. Metabolic acidosis. Secondary to renal disease. Continue to monitor. Chronic systolic heart failure. Compensated. Continue home medications. Type 2 diabetes mellitus; Accu-Chek sliding scale coverage and ADA diet and insulin Diabetic neuropathy; supportive care and, gabapentin Hypertension; moderate control, continue current antihypertensives and when necessary medications Morbid obesity; BMI 42.5; diet modification and exercise as tolerated with weight reduction when medically stable
--- NOTE | 2019-02-23 09:43 | Progress Note ---
Assessment and Plan Assessment and plan: Chest pain. Patient will be placed on a chest pain protocol and monitor closely. Follow-up cardiac isoenzymes and serial EKGs. Cardiology consultation. I suspect pain may be later costochondritis. Pain is reproducible on palpation. Acute gouty arthritis. Given her renal disease we will continue to treat with prednisone daily. Check uric acid levels. PT evaluation ESRD, not on HD. Patient was pre-was seen by Dr. Abraham on last hospitalization. Consult nephrology. Metabolic acidosis. Secondary to renal disease. Continue to monitor. Chronic systolic heart failure. Compensated. Continue home medications. Type 2 diabetes mellitus; Accu-Chek sliding scale coverage and ADA diet and in sulin Diabetic neuropathy; supportive care and, gabapentin Hypertension; moderate control, continue current antihypertensives and when necessary medications Morbid obesity; BMI 42.5; diet modification and exercise as tolerated with weight reduction when medically stable History Interval history: 49-year-old -[place] female with a past medical history of diabetes, gout, coronary artery disease with previous [place] and cardiac stents, end-stage charito al disease not on hemodialysis and previous CVA without residual deficits who presents to the emergency department from home with the complaints of severe right leg pain and chest pain. Hospitalist Physical - Constitutional Vitals: Temp Pulse Resp BP Pulse Ox 99.0 F 83 18 142/67 88 02/23/19 08:01 02/23/19 08:01 02/23/19 08:01 02/23/19 08:01 02/23/19 08:01 General appearance: Present: no acute distress - EENT Eyes: Present: PERRL, EOM intact ENT: hearing intact, clear oral mucosa, dentition normal - Neck Neck: Present: supple, normal ROM - Respiratory Respiratory effort: normal Respiratory: bilateral: CTA - Cardiovascular Rhythm: regular Heart Sounds: Present: S1 & S2. Absent: gallop, rub - Extremities Extremities: no ischemia, Full ROM Extremity abnormal: edema (improved), tenderness (improved right-foot) - Abdominal General gastrointestinal: soft, non-tender, non-distended, normal bowel sounds - Integumentary Integumentary: Present: clear, warm, dry - Neurologic Neurologic: CNII-XII intact, moves all extremities Results - Labs CBC & Chem 7: 02/23/19 04:50 02/23/19 04:50 Labs: Laboratory Last Values WBC 7.0 K/mm3 (4.5-11.0) 02/23/19 04:50 RBC 3.43 M/mm3 (3.65-5.03) L 02/23/19 04:50 Hgb 10.0 gm/dl (10.1-14.3) L 02/23/19 04:50 Hct 30.7 % (30.3-42.9) 02/23/19 04:50 MCV 89 fl (79-97) 02/23/19 04:50 MCH 29 pg (28-32) 02/23/19 04:50 MCHC 33 % (30-34) 02/23/19 04:50 RDW 16.9 % (13.2-15.2) H 02/23/19 04:50 Plt Count 192 K/mm3 (140-440) 02/23/19 04:50 Lymph % (Auto) 15.7 % (13.4-35.0) 02/23/19 04:50 [place] % (Auto) 11.7 % (0.0-7.3) H 02/23/19 04:50 Eos % (Auto) 4.2 % (0.0-4.3) 02/23/19 04:50 Baso % (Auto) 0.8 % (0.0-1.8) 02/23/19 04:50 Lymph # 1.1 K/mm3 (1.2-5.4) L 02/23/19 04:50 [place] # 0.8 K/mm3 (0.0-0.8) 02/23/19 04:50 Eos # 0.3 K/mm3 (0.0-0.4) 02/23/19 04:50 Baso # 0.1 K/mm3 (0.0-0.1) 02/23/19 04:50 Seg Neutrophils % 67.6 % (40.0-70.0) 02/23/19 04:50 Seg Neutrophils # 4.8 K/mm3 (1.8-7.7) 02/23/19 04:50 PT 14.4 Sec. (12.2-14.9) 02/22/19 07:31 INR 1.15 (0.87-1.13) H 02/22/19 07:31 APTT 30.4 Sec. (24.2-36.6) 02/22/19 07:31 874.61 ng/mlDDU (0-234) H 02/22/19 07:31 Sodium 136 mmol/L (137-145) L 02/23/19 04:50 Potassium 4.3 mmol/L (3.6-5.0) 02/23/19 04:50 Chloride 104.3 mmol/L (98-107) 02/23/19 04:50 Carbon Dioxide 20 mmol/L (22-30) L 02/23/19 04:50 16 mmol/L 02/23/19 04:50 BUN 60 mg/dL (7-17) H 02/23/19 04:50 4.9 mg/dL (0.7-1.2) H 02/23/19 04:50 Estimated GFR 11 ml/min 02/23/19 04:50 12 % 02/23/19 04:50 Glucose 150 mg/dL (65-100) H 02/23/19 04:50 POC Glucose 173 (70-105) H 02/23/19 08:46 Calcium 8.8 mg/dL (8.4-10.2) 02/23/19 04:50 0.60 mg/dL (0.1-1.2) 02/22/19 07:31 AST 11 units/L (5-40) 02/22/19 07:31 ALT 14 units/L (7-56) 02/22/19 07:31 68 units/L (35-129) 02/22/19 07:31 0.063 ng/mL (0.00-0.029) H 02/22/19 12:42 6.8 g/dL (6.3-8.2) 02/22/19 07:31 2.8 g/dL (3.9-5) L 02/22/19 07:31 0.7 % 02/22/19 07:31 Triglycerides 103 mg/dL (2-149) 02/22/19 07:31 Cholesterol 164 mg/dL (50-199) 02/22/19 07:31 116 mg/dL (50-130) 02/22/19 07:31 41 mg/dL (40-59) 02/22/19 07:31 4.00 % 02/22/19 07:31 Active Medications - Current Medications Current Medications: Generic Name Dose Route Start Last Admin Trade Name Freq PRN Reason Stop Dose Admin Acetaminophen 650 mg 02/22/19 12:39 Tylenol PO Q4H PRN Pain MILD(1-3)/Fever >100.5/AMARO Aspirin 81 mg 02/22/19 16:00 02/22/19 15:55 Baby Aspirin PO 81 mg QDAY MARISSA Administration Carvedilol 25 mg 02/22/19 22:00 02/22/19 22:26 Coreg PO 25 mg BID MARISSA Administration Dextrose 50 ml 02/22/19 12:39 D50w (25gm) Syringe IV PRN PRN Hypoglycemia Enoxaparin Sodium 30 mg 02/23/19 10:00 Lovenox SUB-Q QDAY [facility] Isosorbide Dinitrate/Hydralazine 1 each 02/22/19 22:00 02/23/19 05:10 Bidil 20/37.5mg PO 1 each Q8HR [facility]ISSA Administration Morphine Sulfate 2 mg 02/22/19 13:42 02/23/19 05:06 Morphine IV 2 mg Q6H PRN Administration Pain, Moderate (4-6) Ondansetron HCl 4 mg 02/22/19 12:39 Zofran IV Q8H PRN Nausea And Vomiting Pneumococcal Polyvalent Vaccine 0.5 ml 02/23/19 12:00 Pneumovax 23 IM 02/23/19 12:01 .ONCE ONE Prednisone 40 mg 02/23/19 10:00 Deltasone PO QDAY MARISSA Sodium Chloride 10 ml 02/22/19 22:00 02/22/19 22:26 Sodium Chloride Flush Syringe 10 Ml IV 10 ml BID MARISSA Administration Sodium Chloride 10 ml 02/22/19 12:39 Sodium Chloride Flush Syringe 10 Ml IV PRN PRN LINE FLUSH
[2019-02-23] MEDS ORDERED: DELTASONE PO SCH (10:00)
[2019-02-23] MEDS ORDERED: LOVENOX SUB-Q SCH (10:00)
[2019-02-23] MEDS: COREG PO SCH ×2 (10:39→22:41)
[2019-02-23] MEDS: BABY ASPIRIN PO SCH (10:39)
[2019-02-23] MEDS: LOVENOX SUB-Q SCH (10:39)
[2019-02-23] MEDS: SODIUM CHLORIDE FLUSH SYRINGE 10 ML IV SCH ×2 (10:40→22:42)
[2019-02-23] MEDS ORDERED: PNEUMOVAX 23 IM ONE (12:00)
[2019-02-23 13:10] LABS: Creatinine,Urine 176.2 mg/dL (0.1-20.0)
[2019-02-23 13:23] LABS: Creatinine,Urine 176.2 mg/dL (0.1-20.0); Protein/Creatinine Ratio,Urine 0.92
[2019-02-23] MEDS: SODIUM BICARBONATE PO SCH ×2 (13:49→22:42)
[2019-02-23] MEDS ORDERED: BUMEX IV ONE (14:28)
--- NOTE | 2019-02-23 14:31 | Progress Note ---
Assessment and Plan Patient now requiring oxygen and has bibasilar crackles. Left pleural effusion or infiltrate noted on CXR. Will attempt diuresis with torsemide today. The patient has been seen in conjunction with Dr. Alexandra, who agrees with the assessment and plan. - Patient Problems (1) Atypical chest pain Current Visit: Yes Status: Acute (2) CKD (chronic kidney disease) Current Visit: Yes Status: Chronic Qualifiers: Chronic kidney disease stage: unspecified stage Qualified Code(s): N18.9 - Chronic kidney disease, unspecified (3) Diabetes Current Visit: Yes Status: Acute (4) Chronic HFrEF (heart failure with reduced ejection fraction) Current Visit: Yes Status: Chronic (5) HTN (hypertension) Current Visit: Yes Status: Chronic Qualifiers: Hypertension type: essential hypertension Qualified Code(s): I10 - Essential (primary) hypertension (6) Right leg pain Current Visit: Yes Status: Acute (7) Right leg swelling Current Visit: Yes Status: Acute (8) H/O: CVA (cerebrovascular accident) Current Visit: Yes Status: Acute Subjective Date of service: 02/23/19 Interval history: Patient sitting up in bed in NAD. C/O poor appetite. Also notes that she does not require oxygen at home, but has desaturations when oxygen is off. Telemetry reviewed - SR in 70s. Objective Last Vital Signs Temp 98.7 F 02/23/19 11:32 Pulse 83 02/23/19 13:50 Resp 20 02/23/19 13:50 BP 154/72 02/23/19 13:50 Pulse Ox 95 02/23/19 11:32 - Physical Examination General: No Apparent Distress HEENT: Positive: PERRL Neck: Positive: neck supple Cardiac: Positive: Reg Rate and Rhythm Lungs: Positive: Rales (bibasilar) Neuro: Positive: Grossly Intact Abdomen: Positive: Unremarkable Skin: Positive: Clear Musculoskeletal: other (swelling and tenderness in RLE) Extremities: Present: Other (tenderness in RLE ) - Labs and Meds CBC 02/23/19 Range/Units 04:50 WBC 7.0 (4.5-11.0) K/mm3 RBC 3.43 L (3.65-5.03) M/mm3 Hgb 10.0 L (10.1-14.3) gm/dl Hct 30.7 (30.3-42.9) % Plt Count 192 (140-440) K/mm3 Lymph # 1.1 L (1.2-5.4) K/mm3 [place] # 0.8 (0.0-0.8) K/mm3 Eos # 0.3 (0.0-0.4) K/mm3 Baso # 0.1 (0.0-0.1) K/mm3 Comprehensive Metabolic Panel 02/23/19 Range/Units 04:50 Sodium 136 L (137-145) mmol/L Potassium 4.3 (3.6-5.0) mmol/L Chloride 104.3 (98-107) mmol/L Carbon Dioxide 20 L (22-30) mmol/L BUN 60 H (7-17) mg/dL Creatinine 4.9 H (0.7-1.2) mg/dL Glucose 150 H (65-100) mg/dL Calcium 8.8 (8.4-10.2) mg/dL - Imaging and Cardiology Echo: report reviewed (10/2018: EF 25-30%, small circumferential pericardial effusion, grade 3 diastolic dysfunction, mod-to-sev MR) - Telemetry EKG Rhythm: Sinus Rhythm - EKG Sinus rhythms and dysrhythmias: sinus rhythm Chamber hypertrophy or enlargement: righ ventricular hypertro
[2019-02-23] MEDS: DEMADEX PO SCH (15:40)
[2019-02-23] MEDS: HumaLOG SUB-Q SCH ×2 (16:41→22:40)
[2019-02-23] MEDS ORDERED: LANTUS SUB-Q SCH (22:00)
[2019-02-24] MEDS: BIDIL 20/37.5MG PO SCH ×3 (05:54→22:21)
[2019-02-24 06:25] LABS: Calcium 8.7 mg/dL (8.4-10.2)
[2019-02-24 07:12] LABS: Basophils % (Auto) 0.2 % (0.0-1.8); Eosinophils % (Auto) 0.6 % (0.0-4.3); Lymphocytes # (Auto) 0.4 K/mm3 (1.2-5.4); Lymphocytes % (Auto) 6.6 % (13.4-35.0); Mean Corpuscular HGB Conc 33 % (30-34); Mean Corpuscular Volume 88 fl (79-97); Monocytes # (Auto) 0.4 K/mm3 (0.0-0.8); Monocytes % (Auto) 7.5 % (0.0-7.3); Platelet Count 140 K/mm3 (140-440); Red Blood Count 5.08 M/mm3 (3.65-5.03); Red Cell Distribution Width 16.8 % (13.2-15.2)
[2019-02-24 07:26] LABS: Hematocrit 44.6 % (30.3-42.9); Hemoglobin 14.7 gm/dl (10.1-14.3)
[2019-02-24] MEDS: HumaLOG SUB-Q SCH ×5 (08:05→22:19)
[2019-02-24] MEDS: SODIUM BICARBONATE PO SCH ×3 (08:09→22:21)
[2019-02-24] MEDS ORDERED: LEXISCAN IV ONE ×2 (08:38→08:44)
--- NOTE | 2019-02-24 11:42 | Progress Note ---
Assessment and Plan CKD stabe IV/V secondary to HTN, unknown baseline, not on HD, s/p AVF placement in 12/2018 Chest pain, per cardiology likely non-cardiac Anemia in CKD HTN AG metabolic acidosis - cont diuretics per cardiology, no indication for SITE SAFETY COORDINATOR, but likely will be needed in the near future, AVF with + thrill and bruit - cont sodium bicarb 650 mg TID - renally dose meds - strict I&O - daily weight Temo Abraham MD [phone] Subjective Date of service: 02/24/19 Principal diagnosis: shortness of breath Interval history: was in stress test this AM Objective - Vital Signs Vital signs: Vital Signs - 12hr 02/24/19 02/24/19 02/24/19 04:40 07:30 09:45 Temperature 98.4 F 98.7 F Pulse Rate 80 71 Pulse Rate [ Apical] Pulse Rate [ Left Radial] Pulse Rate [ Right Radial] Respiratory 17 19 Rate Blood Pressure 136/61 134/67 143/76 O2 Sat by Pulse 94 100 Oximetry 02/24/19 02/24/19 02/24/19 09:46 10:00 10:10 Temperature Pulse Rate Pulse Rate [ 71 Apical] Pulse Rate [ 71 Left Radial] Pulse Rate [ 71 Right Radial] Respiratory 18 Rate Blood Pressure 140/76 116/62 O2 Sat by Pulse 99 Oximetry 02/24/19 02/24/19 10:11 10:12 Temperature Pulse Rate Pulse Rate [ Apical] Pulse Rate [ Left Radial] Pulse Rate [ Right Radial] Respiratory Rate Blood Pressure 122/65 126/67 O2 Sat by Pulse Oximetry - Lab 02/24/19 05:42 02/24/19 05:42 Most recent lab results Calcium 8.7 mg/dL (8.4-10.2) 02/24/19 05:42 Phosphorus 4.10 mg/dL (2.5-4.5) 02/24/19 05:42 176.2 mg/dL (0.1-20.0) H 02/23/19 09:32 176.2 mg/dL (0.1-20.0) H 02/23/19 09:32 24 mmol/L 02/23/19 09:32 162 mg/dL (5-11.8) H 02/23/19 09:32 Medications & Allergies - Medications Allergies/Adverse Reactions: Allergies ibuprofen [From Motrin] Adverse Reaction (Verified 12/27/17 22:53) Unknown Renal issues lisinopril Adverse Reaction (Verified 02/22/19 07:08) Unknown sulfamethoxazole [From Bactrim] Adverse Reaction (Verified 12/27/17 22:53) Unknown Renal issues trimethoprim [From Bactrim] Adverse Reaction (Verified 12/27/17 22:53) Unknown Renal issues Home Medications: Home Medications Medication Instructions Recorded Confirmed Last Taken Type Carvedilol [Coreg] 25 mg PO BID 12/30/17 02/22/19 1 Day Ago History ~02/21/19 Gabapentin [Neurontin] 100 mg PO TID 12/30/17 02/22/19 1 Day Ago History ~02/21/19 Aspirin [Aspirin BABY CHEW TAB] 81 mg PO QDAY 02/22/19 02/22/19 1 Day Ago History ~02/21/19 Bidil 20/37.5MG See Protocol PO TID 02/22/19 02/22/19 1 Day Ago History ~02/21/19 Calcium Citrate/Vitamin D3 1 each PO DAILY 02/22/19 02/22/19 1 Day Ago History [Calcitrate + Vit D Caplet] ~02/21/19 Insulin Aspart [NovoLOG 100 10 units SUB-Q TID 02/22/19 02/22/19 1 Day Ago History UNITS/ML VIAL] ~02/21/19 Insulin Glargine [Lantus VIAL] 18 units SUB-Q HS 02/22/19 02/22/19 1 Day Ago History ~02/21/19 Active Medications: Generic Name Dose Route Start Last Admin Trade Name Freq PRN Reason Stop Dose Admin Acetaminophen 650 mg 02/22/19 12:39 Tylenol PO Q4H PRN Pain MILD(1-3)/Fever >100.5/AMARO Aspirin 81 mg 02/22/19 16:00 02/23/19 10:39 Baby Aspirin PO 81 mg QDAY MARISSA Administration Carvedilol 25 mg 02/22/19 22:00 02/23/19 22:41 Coreg PO 25 mg BID MARISSA Administration Dextrose 50 ml 02/22/19 12:39 D50w (25gm) Syringe IV PRN PRN Hypoglycemia Enoxaparin Sodium 30 mg 02/23/19 10:00 02/23/19 10:39 Lovenox SUB-Q 30 mg QDAY MARISSA Administration Insulin Glargine 18 units 02/23/19 22:00 02/23/19 22:40 Lantus SUB-Q 18 units QHS MARISSA Administration Insulin Human Lispro 0 unit 02/23/19 16:30 02/24/19 08:05 Humalog SUB-Q 10 unit ACHS MARISSA Administration Protocol Isosorbide Dinitrate/Hydralazine 1 each 02/22/19 22:00 02/24/19 05:54 Bidil 20/37.5mg PO 1 each Q8HR MARISSA Administration Morphine Sulfate 2 mg 02/22/19 13:42 02/23/19 22:39 Morphine IV 2 mg Q6H PRN Administration Pain, Moderate (4-6) Ondansetron HCl 4 mg 02/22/19 12:39 Zofran IV Q8H PRN Nausea And Vomiting Prednisone 40 mg 02/23/19 10:00 02/23/19 10:39 Deltasone PO 40 mg QDAY MARISSA Administration Sodium Bicarbonate 650 mg 02/23/19 14:00 02/24/19 08:09 Sodium Bicarbonate PO 650 mg TID MARISSA Administration Sodium Chloride 10 ml 02/22/19 22:00 02/23/19 22:42 Sodium Chloride Flush Syringe 10 Ml IV 10 ml BID MARISSA Administration Sodium Chloride 10 ml 02/22/19 12:39 Sodium Chloride Flush Syringe 10 Ml IV PRN PRN LINE FLUSH Torsemide 40 mg 02/23/19 15:00 02/23/19 15:40 Demadex PO 40 mg DAILY MARISSA Administration
--- NOTE | 2019-02-24 12:00 | Progress Note ---
Assessment and Plan Assessment and plan: Chest pain. Patient will be placed on a chest pain protocol and monitor closely. Follow-up cardiac isoenzymes and serial EKGs. Cardiology following. I suspect pain may be later costochondritis. Pain is reproducible on palpation. Acute gouty arthritis. Given her renal disease continue prednisone daily and begin to taper today. Uric acid elevated CKD V. renally dose medications, strict I and O's and daily weights. Nephrology following. Metabolic acidosis. Secondary to renal disease. Continue to monitor. Acute on chronic HFrEF. Cont diuretics per cardiology, no indication for COUNSELING SPECIALIST, but likely will be needed in the near future, Type 2 diabetes mellitus; uncontrolled. Accu-Chek sliding scale coverage and ADA diet and insulin. Resume home dose of lantus. Hyperglycemia related to st eroids. Taper steroids as noted above. Diabetic neuropathy; supportive care and, gabapentin Hypertension; moderate control, continue current antihypertensives and when necessary medications Morbid obesity; BMI 42.5; diet modification and exercise as tolerated with weight reduction when medically stable History Interval history: 49-year-old -[place] female with a past medical history of diabetes, gout, coronary artery disease with previous OR and cardiac stents, end-stage renal disease not on hemodialysis and previous CVA without residual deficits who presents to the emergency department from home with the complaints of severe right leg pain and chest pain. Hospitalist Physical - Constitutional Vitals: Temp Pulse Resp BP Pulse Ox 98.7 F 71 18 126/67 99 02/24/19 07:30 02/24/19 10:00 02/24/19 10:00 02/24/19 10:12 02/24/19 10:00 General appearance: Present: no acute distress, well-nourished - EENT Eyes: Present: PERRL, EOM intact ENT: hearing intact, clear oral mucosa, dentition normal - Neck Neck: Present: supple, normal ROM - Respiratory Respiratory effort: normal Respiratory: bilateral: CTA - Cardiovascular Rhythm: regular Heart Sounds: Present: S1 & S2. Absent: gallop, rub - Extremities Extremities: no ischemia, No edema, Full ROM - Abdominal General gastrointestinal: soft, non-tender, non-distended, normal bowel sounds - Integumentary Integumentary: Present: clear, warm, dry - Neurologic Neurologic: CNII-XII intact, moves all extremities Results - Labs CBC & Chem 7: 02/24/19 05:42 02/24/19 05:42 Labs: Laboratory Last Values WBC 5.4 K/mm3 (4.5-11.0) 02/24/19 05:42 RBC 5.08 M/mm3 (3.65-5.03) H 02/24/19 05:42 Hgb 14.7 gm/dl (10.1-14.3) H D 02/24/19 05:42 Hct 44.6 % (30.3-42.9) H D 02/24/19 05:42 MCV 88 fl (79-97) 02/24/19 05:42 MCH 29 pg (28-32) 02/24/19 05:42 MCHC 33 % (30-34) 02/24/19 05:42 RDW 16.8 % (13.2-15.2) H 02/24/19 05:42 Plt Count 140 K/mm3 (140-440) 02/24/19 05:42 Lymph % (Auto) 6.6 % (13.4-35.0) L 02/24/19 05:42 [place] % (Auto) 7.5 % (0.0-7.3) H 02/24/19 05:42 Eos % (Auto) 0.6 % (0.0-4.3) 02/24/19 05:42 Baso % (Auto) 0.2 % (0.0-1.8) 02/24/19 05:42 Lymph # 0.4 K/mm3 (1.2-5.4) L 02/24/19 05:42 [place] # 0.4 K/mm3 (0.0-0.8) 02/24/19 05:42 Eos # 0.0 K/mm3 (0.0-0.4) 02/24/19 05:42 Baso # 0.0 K/mm3 (0.0-0.1) 02/24/19 05:42 Seg Neutrophils % 85.1 % (40.0-70.0) H 02/24/19 05:42 Seg Neutrophils # 4.6 K/mm3 (1.8-7.7) 02/24/19 05:42 PT 14.4 Sec. (12.2-14.9) 02/22/19 07:31 INR 1.15 (0.87-1.13) H 02/22/19 07:31 APTT 30.4 Sec. (24.2-36.6) 02/22/19 07:31 874.61 ng/mlDDU (0-234) H 02/22/19 07:31 Sodium 131 mmol/L (137-145) L 02/24/19 05:42 Potassium 4.9 mmol/L (3.6-5.0) 02/24/19 05:42 Chloride 97.1 mmol/L (98-107) L 02/24/19 05:42 Carbon Dioxide 19 mmol/L (22-30) L 02/24/19 05:42 20 mmol/L 02/24/19 05:42 BUN 68 mg/dL (7-17) H 02/24/19 05:42 4.8 mg/dL (0.7-1.2) H 02/24/19 05:42 Estimated GFR 12 ml/min 02/24/19 05:42 14 % 02/24/19 05:42 Glucose 414 mg/dL (65-100) H 02/24/19 05:42 POC Glucose 243 (70-105) H 02/24/19 11:51 11.6 mg/dL (3.5-7.6) H 02/23/19 10:11 Calcium 8.7 mg/dL (8.4-10.2) 02/24/19 05:42 Phosphorus 4.10 mg/dL (2.5-4.5) 02/24/19 05:42 200.7 ng/mL (13.0-400.0) 02/24/19 05:42 0.60 mg/dL (0.1-1.2) 02/22/19 07:31 AST 11 units/L (5-40) 02/22/19 07:31 ALT 14 units/L (7-56) 02/22/19 07:31 68 units/L (35-129) 02/22/19 07:31 0.063 ng/mL (0.00-0.029) H 02/22/19 12:42 6.8 g/dL (6.3-8.2) 02/22/19 07:31 2.8 g/dL (3.9-5) L 02/22/19 07:31 0.7 % 02/22/19 07:31 Triglycerides 103 mg/dL (2-149) 02/22/19 07:31 Cholesterol 164 mg/dL (50-199) 02/22/19 07:31 116 mg/dL (50-130) 02/22/19 07:31 41 mg/dL (40-59) 02/22/19 07:31 4.00 % 02/22/19 07:31 176.2 mg/dL (0.1-20.0) H 02/23/19 09:32 176.2 mg/dL (0.1-20.0) H 02/23/19 09:32 Protein/Creatinin Ratio 0.92 02/23/19 09:32 24 mmol/L 02/23/19 09:32 162 mg/dL (5-11.8) H 02/23/19 09:32 Active Medications - Current Medications Current Medications: Generic Name Dose Route Start Last Admin Trade Name Freq PRN Reason Stop Dose Admin Acetaminophen 650 mg 02/22/19 12:39 Tylenol PO Q4H PRN Pain MILD(1-3)/Fever >100.5/AMARO Aspirin 81 mg 02/22/19 16:00 02/23/19 10:39 Baby Aspirin PO 81 mg QDAY MARISSA Administration Carvedilol 25 mg 02/22/19 22:00 02/23/19 22:41 Coreg PO 25 mg BID MARISSA Administration Dextrose 50 ml 02/22/19 12:39 D50w (25gm) Syringe IV PRN PRN Hypoglycemia Enoxaparin Sodium 30 mg 02/23/19 10:00 02/23/19 10:39 Lovenox SUB-Q 30 mg QDAY MARISSA Administration Insulin Glargine 18 units 02/23/19 22:00 02/23/19 22:40 Lantus SUB-Q 18 units QHS MARISSA Administration Insulin Human Lispro 0 unit 02/23/19 16:30 02/24/19 08:05 Humalog SUB-Q 10 unit ACHS MARISSA Administration Protocol Isosorbide Dinitrate/Hydralazine 1 each 02/22/19 22:00 02/24/19 05:54 Bidil 20/37.5mg PO 1 each Q8HR MARISSA Administration Morphine Sulfate 2 mg 02/22/19 13:42 02/23/19 22:39 Morphine IV 2 mg Q6H PRN Administration Pain, Moderate (4-6) Ondansetron HCl 4 mg 02/22/19 12:39 Zofran IV Q8H PRN Nausea And Vomiting Prednisone 40 mg 02/23/19 10:00 02/23/19 10:39 Deltasone PO 40 mg QDAY MARISSA Administration Sodium Bicarbonate 650 mg 02/23/19 14:00 02/24/19 08:09 Sodium Bicarbonate PO 650 mg TID MARISSA Administration Sodium Chloride 10 ml 02/22/19 22:00 02/23/19 22:42 Sodium Chloride Flush Syringe 10 Ml IV 10 ml BID MARISSA Administration Sodium Chloride 10 ml 02/22/19 12:39 Sodium Chloride Flush Syringe 10 Ml IV PRN PRN LINE FLUSH Torsemide 40 mg 02/23/19 15:00 02/23/19 15:40 Demadex PO 40 mg DAILY MARISSA Administration
[2019-02-24] MEDS: DEMADEX PO SCH (12:08)
[2019-02-24] MEDS: COREG PO SCH ×2 (12:09→22:20)
[2019-02-24] MEDS: BABY ASPIRIN PO SCH (12:10)
[2019-02-24] MEDS: LOVENOX SUB-Q SCH (12:11)
[2019-02-24] MEDS: SODIUM CHLORIDE FLUSH SYRINGE 10 ML IV SCH ×2 (12:11→22:21)
--- NOTE | 2019-02-24 13:54 | Progress Note ---
Assessment and Plan Currently stable cardiac status. Pt reports resolution of chest pain and SOB. Pt appears to be nearing/at euvolemia. S/p lexiscan MPI stress test this AM which was negative for significant ischemia. Pt may discharge home from cardiology standpoint on home cardiac regimen. No ACEI/ARB at this time in setting of renal insufficiency. Recommend pt follow up with her primary technical sales associate at [facility], Dr. Navarro within 3-5 days of hospital discharge. Pt verbalizes understanding. The patient has been seen in conjunction with Dr. Zhao Castrejon who agrees with the assessment and plan. - Patient Problems (1) Atypical chest pain Current Visit: Yes Status: Acute (2) Acute on chronic HFrEF (heart failure with reduced ejection fraction) Current Visit: Yes Status: Acute (3) Ischemic cardiomyopathy Current Visit: Yes Status: Chronic (4) CAD (coronary artery disease) Current Visit: Yes Status: Chronic (5) Stented coronary artery Current Visit: Yes Status: Chronic (6) HTN (hypertension) Current Visit: Yes Status: Chronic Qualifiers: Hypertension type: essential hypertension Qualified Code(s): I10 - Essential (primary) hypertension (7) Diabetes Current Visit: Yes Status: Chronic (8) CKD (chronic kidney disease) Current Visit: Yes Status: Chronic Qualifiers: Chronic kidney disease stage: unspecified stage Qualified Code(s): N18.9 - Chronic kidney disease, unspecified (9) H/O: CVA (cerebrovascular accident) Current Visit: Yes Status: Chronic (10) Gout Current Visit: Yes Status: Chronic Subjective Date of service: 02/24/19 Principal diagnosis: shortness of breath Interval history: pt resting comfortably in bed, no current cardiac complaints. s/p stress test this AM. in SR on tele. Objective Last Vital Signs Temp 97.6 F 02/24/19 12:06 Pulse 74 02/24/19 12:09 Resp 18 02/24/19 12:06 BP 124/56 02/24/19 12:09 Pulse Ox 99 02/24/19 10:00 - Physical Examination General: No Apparent Distress HEENT: Positive: PERRL Neck: Positive: neck supple Cardiac: Positive: Reg Rate and Rhythm, S1/S2 Lungs: Positive: Decreased Breath Sounds Neuro: Positive: Grossly Intact Abdomen: Positive: Unremarkable Skin: Positive: Clear Musculoskeletal: other (swelling and tenderness in RLE) Extremities: Present: Other (tenderness in RLE ) - Labs and Meds CBC 02/24/19 Range/Units 05:42 WBC 5.4 (4.5-11.0) K/mm3 RBC 5.08 H (3.65-5.03) M/mm3 Hgb 14.7 H D (10.1-14.3) gm/dl Hct 44.6 H D (30.3-42.9) % Plt Count 140 (140-440) K/mm3 Lymph # 0.4 L (1.2-5.4) K/mm3 [place] # 0.4 (0.0-0.8) K/mm3 Eos # 0.0 (0.0-0.4) K/mm3 Baso # 0.0 (0.0-0.1) K/mm3 Comprehensive Metabolic Panel 02/24/19 Range/Units 05:42 Sodium 131 L (137-145) mmol/L Potassium 4.9 (3.6-5.0) mmol/L Chloride 97.1 L (98-107) mmol/L Carbon Dioxide 19 L (22-30) mmol/L BUN 68 H (7-17) mg/dL Creatinine 4.8 H (0.7-1.2) mg/dL Glucose 414 H (65-100) mg/dL Calcium 8.7 (8.4-10.2) mg/dL - Imaging and Cardiology Echo: report reviewed (10/2018: EF 25-30%, small circumferential pericardial effusion, grade 3 diastolic dysfunction, mod-to-sev MR) - EKG Sinus rhythms and dysrhythmias: sinus rhythm Chamber hypertrophy or enlargement: righ ventricular hypertro
[2019-02-24] MEDS ORDERED: NON-FORMULARY (Insulin Aspart 10 UNITS) SUB-Q SCH (14:00)
[2019-02-24] MEDS ORDERED: BIDIL PO SCH (14:00)
[2019-02-24] MEDS: NEURONTIN PO SCH ×2 (14:17→22:21)
[2019-02-24] MEDS: DELTASONE PO SCH (14:18)
[2019-02-24] MEDS ORDERED: LANTUS SUB-Q SCH (22:00)
--- NOTE | 2019-02-25 04:19 | Treadmill Report ---
NUCLEAR PERFUSION SCAN REFERRING PHYSICIAN: Carlos Sorto MD PROTOCOL: The patient was brought to the stress lab in a postabsorptive state, given 10 mCi of technetium 99m at rest. The patient underwent rest imaging. The patient underwent Lexiscan stress test. At peak stress, the patient was given 26 mCi of technetium 99m. Shortly thereafter, the patient underwent stress imaging. Raw imaging reveals mild GI artifact. No significant motion artifact. SPECT imaging examined carefully in the horizontal long axis, vertical long axis, short axis views. Technically difficult study due to GI artifact. There is a moderate sized densely fixed apical defect likely consistent with prior myocardial infarction. There is no evidence of a significant degree of reversible ischemia. There is mild global LV hypokinesis with a calculated ejection fraction of 48%. No TID. CONCLUSIONS: Abnormal myocardial perfusion scan with a moderate sized densely fixed apical defect consistent with prior myocardial infarction. No convincing evidence of a significant degree of reversible ischemia is identified. Gated wall motion reveals ejection fraction of 48%. No TID. JOB# [id number] TARA/JOSEPH
[2019-02-25 08:04] LABS: Hematocrit 30.3 % (30.3-42.9); Hemoglobin 10.1 gm/dl (10.1-14.3); Mean Corpuscular HGB Conc 33 % (30-34); Mean Corpuscular Volume 88 fl (79-97); Platelet Count 200 K/mm3 (140-440); Red Blood Count 3.46 M/mm3 (3.65-5.03); Red Cell Distribution Width 16.7 % (13.2-15.2)
[2019-02-25] MEDS: SODIUM BICARBONATE PO SCH (08:04)
[2019-02-25] MEDS: BIDIL 20/37.5MG PO SCH (08:04)
[2019-02-25] MEDS: NEURONTIN PO SCH (08:05)
[2019-02-25] MEDS: HumaLOG SUB-Q SCH ×4 (08:05→12:18)
[2019-02-25] MEDS: DEMADEX PO SCH (09:47)
[2019-02-25] MEDS: COREG PO SCH (09:47)
[2019-02-25] MEDS: DELTASONE PO SCH (09:48)
[2019-02-25] MEDS: LOVENOX SUB-Q SCH (09:49)
[2019-02-25] MEDS: SODIUM CHLORIDE FLUSH SYRINGE 10 ML IV SCH (09:50)
[2019-02-25] MEDS ORDERED: CITRACAL D 315MG-250 UNITS PO SCH (10:00)
[2019-02-25] MEDS ORDERED: PEPCID IV SCH ×2 (10:00)
[2019-02-25] MEDS ORDERED: BABY ASPIRIN PO SCH (10:00)
--- NOTE | 2019-02-25 10:05 | Progress Note ---
Assessment and Plan CKD stabe V secondary to HTN, unknown baseline, not on HD, s/p AVF placement in 12/2018 Chest pain, per cardiology likely non-cardiac Anemia in CKD HTN AG metabolic acidosis - cont diuretics per cardiology, cont to have worsening Cr and BUN with diuretics, for now the plan is to start HD as an outpatient unless signs of uremia ofr refractory volume overload - cont sodium bicarb 650 mg TID - renally dose meds - strict I&O - daily weight Temo Abraham MD [phone] Subjective Date of service: 02/25/19 Principal diagnosis: shortness of breath Interval history: denies acute issues, ready to go home Objective - Vital Signs Vital signs: Vital Signs - 12hr 02/24/19 02/25/19 02/25/19 22:54 00:18 03:40 Temperature 98.0 F 98.1 F Pulse Rate 80 86 Respiratory 16 20 19 Rate Blood Pressure 128/64 148/71 O2 Sat by Pulse 94 95 Oximetry 02/25/19 02/25/19 02/25/19 07:40 08:04 09:47 Temperature 97.9 F Pulse Rate 82 84 83 Respiratory 20 Rate Blood Pressure 130/71 152/81 125/68 O2 Sat by Pulse 93 Oximetry - General Appearance General appearance: well-developed, well-nourished, obese EENT: ATNC, PERRL, mucous membranes moist Neck: no JVD, no carotid bruit Respiratory: Present: Clear to Ascultation. Absent: Rales, Ronchi Cardiology: regular, S1S2 Gastrointestinal: normoactive bowel sounds, no tenderness, no distended Integumentary: no rash, warm and dry Neurologic: no focal deficit, no asterixis, alert and oriented x3 Musculoskeletal: other (trace pitting edema in BLE) Psychiatric: mood/affect appropriate, cooperative - Lab 02/25/19 07:46 02/25/19 05:09 Most recent lab results Calcium 9.0 mg/dL (8.4-10.2) 02/25/19 05:09 Phosphorus 4.10 mg/dL (2.5-4.5) 02/25/19 05:09 176.2 mg/dL (0.1-20.0) H 02/23/19 09:32 176.2 mg/dL (0.1-20.0) H 02/23/19 09:32 24 mmol/L 02/23/19 09:32 162 mg/dL (5-11.8) H 02/23/19 09:32 Medications & Allergies - Medications Allergies/Adverse Reactions: Allergies ibuprofen [From Motrin] Adverse Reaction (Verified 12/27/17 22:53) Unknown Renal issues lisinopril Adverse Reaction (Verified 02/22/19 07:08) Unknown sulfamethoxazole [From Bactrim] Adverse Reaction (Verified 12/27/17 22:53) Unknown Renal issues trimethoprim [From Bactrim] Adverse Reaction (Verified 12/27/17 22:53) Unknown Renal issues Home Medications: Home Medications Medication Instructions Recorded Confirmed Last Taken Type Carvedilol [Coreg] 25 mg PO BID 12/30/17 02/22/19 1 Day Ago History ~02/21/19 Aspirin [Aspirin BABY CHEW TAB] 81 mg PO QDAY 02/22/19 02/22/19 1 Day Ago History ~02/21/19 Bidil 20/37.5MG See Protocol PO TID 02/22/19 02/22/19 1 Day Ago History ~02/21/19 Calcium Citrate/Vitamin D3 1 each PO DAILY 02/22/19 02/22/19 1 Day Ago History [Calcitrate + Vit D Caplet] ~02/21/19 Insulin Aspart [NovoLOG 100 10 units SUB-Q TID 02/22/19 02/22/19 1 Day Ago History UNITS/ML VIAL] ~02/21/19 Insulin Glargine [Lantus VIAL] 18 units SUB-Q HS 02/22/19 02/22/19 1 Day Ago His tory ~02/21/19 Famotidine [Pepcid] 10 mg PO BID #60 tablet 02/25/19 Unknown Rx Gabapentin [Neurontin] 100 mg PO TID #90 capsule 02/25/19 Unknown Rx Sodium Bicarbonate 650 mg PO TID #60 tablet 02/25/19 Unknown Rx predniSONE [Deltasone] 20 mg PO QDAY #5 tablet 02/25/19 Unknown Rx Active Medications: Generic Name Dose Route Start Last Admin Trade Name Freq PRN Reason Stop Dose Admin Acetaminophen 650 mg 02/22/19 12:39 02/24/19 12:24 Tylenol PO 650 mg Q4H PRN Administration Pain MILD(1-3)/Fever >100.5/AMARO Aspirin 81 mg 02/25/19 10:00 02/25/19 09:48 Baby Aspirin PO 81 mg QDAY MARISSA Administration Calcium Citrate 1 each 02/25/19 10:00 02/25/19 09:49 Citracal D 315mg-250 Units PO 1 each DAILY MARISSA Administration Carvedilol 25 mg 02/24/19 22:00 02/25/19 09:47 Coreg PO 25 mg BID MARISSA Administration Dextrose 50 ml 02/22/19 12:39 D50w (25gm) Syringe IV PRN PRN Hypoglycemia Enoxaparin Sodium 30 mg 02/23/19 10:00 02/25/19 09:49 Lovenox SUB-Q 30 mg QDAY MARISSA Administration Famotidine 10 mg 02/25/19 10:00 Pepcid IV DAILY MARISSA Gabapentin 100 mg 02/24/19 14:00 02/25/19 08:05 Neurontin PO 100 mg TID MARISSA Administration Insulin Glargine 18 units 02/24/19 22:00 02/24/19 22:20 Lantus SUB-Q 18 units HS MARISSA Administration Insulin Human Lispro 0 unit 02/23/19 16:30 02/25/19 08:05 Humalog SUB-Q 10 unit ACHS MARISSA Administration Protocol Insulin Human Lispro 10 unit 02/24/19 16:30 02/25/19 08:06 Humalog SUB-Q 10 unit AC MARISSA Administration Isosorbide Dinitrate/Hydralazine 1 each 02/22/19 22:00 02/25/19 08:04 Bidil 20/37.5mg PO 1 each Q8HR MARISSA Administration Morphine Sulfate 2 mg 02/22/19 13:42 02/23/19 22:39 Morphine IV 2 mg Q6H PRN Administration Pain, Moderate (4-6) Ondansetron HCl 4 mg 02/22/19 12:39 Zofran IV Q8H PRN Nausea And Vomiting Prednisone 20 mg 02/24/19 14:00 02/25/19 09:48 Deltasone PO 20 mg QDAY MARISSA Administration Sodium Bicarbonate 650 mg 02/23/19 14:00 02/25/19 08:04 Sodium Bicarbonate PO 650 mg TID MARISSA Administration Sodium Chloride 10 ml 02/22/19 22:00 02/25/19 09:50 Sodium Chloride Flush Syringe 10 Ml IV 10 ml BID MARISSA Administration Sodium Chloride 10 ml 02/22/19 12:39 Sodium Chloride Flush Syringe 10 Ml IV PRN PRN LINE FLUSH Torsemide 40 mg 02/23/19 15:00 02/25/19 09:47 Demadex PO 40 mg DAILY MARISSA Administration
--- NOTE | 2019-02-25 10:15 | Discharge Summary ---
Providers - Providers Date of Admission: 02/24/19 09:56 Attending physician: JEFFY CELESTE MD 02/22/19 12:39 Consult to Physician [CONS] Routine Comment: Consulting Provider: DAVID YOON Physician Instructions: Reason For Exam: cp 02/22/19 12:45 Consult to Physician [CONS] Routine Comment: Consulting Provider: CYNTHIA LOPEZ Physician Instructions: Reason For Exam: ckd 02/23/19 09:43 Physical Therapy Evaluation and Treat [CONS] Routine Comment: Reason For Exam: gouty attack Hospitalization Condition: Fair Disposition: DC/[place]-06 HOME UNDER HOME [facility] Time spent for discharge: 32 minutes - Discharge Diagnoses (1) Acute on chronic HFrEF (heart failure with reduced ejection fraction) Status: Acute (2) Right leg pain Status: Acute (3) Right leg swelling Status: Acute (4) Chronic HFrEF (heart failure with reduced ejection fraction) Status: Chronic (5) Gout Status: Chronic (6) CKD (chronic kidney disease) stage 4, GFR 15-29 ml/min Status: Acute (7) Diabetic neuropathy Status: Acute Core Measure Documentation - Palliative Care Palliative Care/ Comfort Measures: Not Applicable - Core Measures Any of the following diagnoses?: heart failure - Heart Failure Discharge Requirements GUME/ARB for LVSD if EF <40%: No Reason for no GUME/ARB: Renal impairment Beta adelia at discharge: Yes Exam - Physical Exam Narrative exam: Not in cardiopulmonary distress. The patient is obese. Vital signs as documented. Head exam is unremarkable. No scleral icterus . Neck is without jugular venous distension, thyromegaly, or carotid bruits. Lungs are clear to auscultation. Cardiac exam reveals regular rate and Rhythm. First and second heart sounds normal. No murmurs, rubs or gallops. Abdominal exam reveals normal bowel sounds, no masses, no organomegaly and no aortic enlargement. Extremities are nonedematous and both femoral and pedal pulses are normal. METER TESTER PRIMARY: Alert and oriented 3. No focal weakness. - Constitutional Vitals: Temp Pulse Resp BP Pulse Ox 97.9 F 83 20 125/68 93 02/25/19 07:40 02/25/19 09:47 02/25/19 07:40 02/25/19 09:47 02/25/19 07:40 Plan Activity: no restrictions Weight Bearing Status: Full Weight Bearing Diet: low cholesterol, low salt, diabetic, renal Follow up with: MANUEL COOPER [Other] - 7 Days CYNTHIA LOPEZ MD [Staff Physician] - 10 Days Prescriptions: predniSONE [Deltasone] 20 mg PO QDAY #5 tablet Gabapentin [Neurontin] 100 mg PO TID #90 capsule Famotidine [Pepcid] 10 mg PO BID #60 tablet Sodium Bicarbonate 650 mg PO TID #60 tablet
[2019-02-25] MEDS ORDERED: LANTUS SUB-Q ONE (11:10)
[2019-02-25 11:40] LABS: Eosinophils % (Manual) 0 % (0.0-4.3); Total Cells Counted 100
[2019-02-25 11:41] LABS: Anisocytosis Few; Platelet Estimate Consistent w Auto
[2019-02-25] MEDS ORDERED: PEPCID PO SCH (12:15)
[2019-02-25 13:04] VITALS: BP 145/66
== END 2019-02-25 14:33 | disposition home health service (06) | DRG 291 ==
LOC: ED 06:19 → 4A 10:21 → OBSVTOIN 02-24 09:56
PROVIDERS: ADMIT Hospitalist; ATTEND Internal Medicine
PROC: 3E0234Z Introduction of Serum, Toxoid and Vaccine into Muscle, Percutaneous Approach (ICD-10-PCS; principal; 2019-02-23)
DX: I13.2 Hypertensive heart and chronic kidney disease with heart failure and with stage 5 chronic kidney disease, or end stage renal disease (principal); I50.23 Acute on chronic systolic (congestive) heart failure; N18.6 End stage renal disease; E87.2 Acidosis; M79.89 Other specified soft tissue disorders; M79.604 Pain in right leg; E66.01 Morbid (severe) obesity due to excess calories; M10.9 Gout, unspecified; E11.40 Type 2 diabetes mellitus with diabetic neuropathy, unspecified; I25.10 Atherosclerotic heart disease of native coronary artery without angina pectoris; E11.22 Type 2 diabetes mellitus with diabetic chronic kidney disease; K21.9 Gastro-esophageal reflux disease without esophagitis; D63.1 Anemia in chronic kidney disease; I25.5 Ischemic cardiomyopathy; Z95.5 Presence of coronary angioplasty implant and graft; Z86.73 Personal history of transient ischemic attack (TIA), and cerebral infarction without residual deficits; Z68.39 Body mass index [BMI] 39.0-39.9, adult; Z71.3 Dietary counseling and surveillance; Z79.82 Long term (current) use of aspirin; Z79.899 Other long term (current) drug therapy; Z88.2 Allergy status to sulfonamides; Z79.4 Long term (current) use of insulin; I25.2 Old myocardial infarction; Z98.51 Tubal ligation status; Z23 Encounter for immunization
CPT/HCPCS: 36415; 71045; 78452; 78582; 80048; 80053; 80061; 82570; 82728; 82962; 84100; 84156; 84300; 84484; 84550; 85007; 85025; 85379; 85610; 85730; 87116; 90732; 93005; 93010; 93017; 93308; 93321; 93325; 93970; 96374; G0378; A9502; A9540; A9558; J1650; J1815; J2270; J2785; J7512

== ENCOUNTER 2021-05-03 13:24 | Inpatient (IN) | payer MEDICAID, MEDICARE ==
[2021-05-03] MEDS ORDERED: SODIUM CHLORIDE 0.9% 1000 ML 1,000 ML IV ONE (14:14)
[2021-05-03 14:54] LABS: Basophils # (Auto) 0.1 K/mm3 (0.0-0.1); Basophils % (Auto) 0.8 % (0.0-1.8); Eosinophils # (Auto) 0.1 K/mm3 (0.0-0.4); Eosinophils % (Auto) 0.9 % (0.0-4.3); Hematocrit 37.5 % (30.3-42.9); Hemoglobin 11.6 gm/dl (10.1-14.3); Lymphocytes # (Auto) 1.2 K/mm3 (1.2-5.4); Lymphocytes % (Auto) 8.8 % (13.4-35.0); Mean Corpuscular HGB Conc 31 % (30-34); Mean Corpuscular Volume 101 fl (79-97); Monocytes # (Auto) 1.1 K/mm3 (0.0-0.8); Monocytes % (Auto) 8.3 % (0.0-7.3); Platelet Count 258 K/mm3 (140-440); Red Blood Count 3.73 M/mm3 (3.65-5.03)
--- NOTE | 2021-05-03 15:08 | Cat Scan Report ---
. CT head/brain wo con INDICATION / CLINICAL INFORMATION: 51 years Female; Altered mental status, syncope. TECHNIQUE: Routine CT head without contrast. All CT scans at this location are performed using CT dos e reduction for ALARA by means of automated exposure control. COMPARISON: None. 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 Otherwise, no acute hemorrhage, mass effect, midline shift, hydrocephalus, or acute, large territori al infarct. Mild to moderate, diffuse cerebral and cerebellar atrophy. There are areas of decreased attenuation in the white matter of the cerebral hemispheres. These are n onspecific findings and may be related to microangiopathy (hypertension, diabetes, atherosclerosis), given the patient's age. It might be difficult to evaluate for small areas of ischemia without diffus ion imaging by MRI. CRANIOCERVICAL JUNCTION: No significant abnormality. ORBITS: Presumed silicone oil injection seen in the right globe. Please clinically correlate. SINUSES / MASTOIDS: Visualized paranasal sinuses and mastoid air cells are essentially clear. ADDITIONAL FINDINGS: Atherosclerotic disease is seen in the anterior and posterior circulation. IMPRESSION: 1. No focal mass, hemorrhage, hydrocephalus, or acute, large territorial infarct. Signer Name: Goldy Reese MD, III Signed: 05/03/2021 3:03 PM Workstation Name: [id number]
--- NOTE | 2021-05-03 15:09 | Emergency Department Report ---
HPI - General Chief Complaint: Altered Mental Status Time Seen by Provider: 05/03/21 13:59 - HPI HPI: Room 40 The patient is a 51-year-old female present with a chief complaint of altered mental status. Spouse states the patient has been complaining of abdominal pain and diarrhea for the past 4 days. The spouse says the patient was behaving like her normal self this morning at 08: 00. Patient continued to have diarrhea and while she was in the bathroom he heard her fall to the ground. Spouse states he went in to help her up and she appeared confused and he could not understand what she was trying to say. The patient opens her eyes to light touch for me but does not answer questions as she appears very lethargic ED Past Medical Hx - Past Medical History Hx Hypertension: Yes Hx Heart Attack/AMI: Yes (x2 with stent) Hx Congestive Heart Failure: Yes Hx Diabetes: Yes Hx Renal Disease: Yes Additional medical history: CHF, AMIx2 - Surgical History Additional Surgical History: tubal ligation, uterine ablation, multiple bilateral eye sx - Family History Family history: no significant - Social History Smoking Status: Never Smoker Substance Use Type: None (Denies illicit drug use) - Medications Home Medications: Home Medications Medication Instructions Recorded Confirmed Last Taken Type Carvedilol [Coreg] 25 mg PO BID 12/30/17 10/22/19 1 Day Ago History ~02/21/19 Aspirin [Aspirin BABY CHEW TAB] 81 mg PO QDAY 02/22/19 10/22/19 1 Day Ago Histor y ~02/21/19 Bidil 20/37.5MG See Protocol PO TID 02/22/19 10/22/19 1 Day Ago History ~02/21/19 Calcium Citrate/Vitamin D3 1 each PO DAILY 02/22/19 10/22/19 1 Day Ago History [Calcitrate + Vit D Caplet] ~02/21/19 Insulin Aspart (Nf) [NovoLOG 100 10 units SUB-Q TID 02/22/19 10/22/19 1 Day Ago History UNITS/ML VIAL] ~02/21/19 Famotidine [Pepcid] 10 mg PO BID #60 tablet 02/25/19 10/22/19 Unknown Rx Gabapentin 100 mg PO TID #90 capsule 02/25/19 10/22/19 Unknown Rx Sodium Bicarbonate 650 mg PO TID #60 tablet 02/25/19 10/22/19 Unknown Rx Fluticasone [Flonase] 100 mcg NS BID #1 bottle 10/24/19 Unknown Rx Insulin NPH/Regular [NovoLIN 70/30] 18 unit SUB-Q BIDDIAB #2 vial 10/24/19 Unknown Rx Pantoprazole [Protonix TAB] 40 mg PO BID #30 tablet 10/24/19 Unknown Rx guaiFENesin DM [Guaifenesin Dm 10 ml PO Q4H PRN 10 Days #1 bottle 10/24/19 Unknown Rx Syrup] ED Review of Systems ROS: Stated complaint: hyperglycemia Other details as noted in HPI Comment: Unobtainable due to pts medical conditions Constitutional: malaise Gastrointestinal: abdominal pain, diarrhea Physical Exam - Physical Exam Vital Signs: Vital Signs 05/03/21 13:32 Temperature 98.4 F Pulse Rate 70 Respiratory 16 Rate Blood Pressure 160/65 [Right] O2 Sat by Pulse 98 Oximetry Physical Exam: GENERAL: The patient is well-developed well-nourished female lying on stretcher appearing lethargic HEENT: Normocephalic. Atraumatic. NECK: Supple. Trachea midline CHEST/LUNGS: Clear to auscultation. There is no respiratory distress noted. HEART/CARDIOVASCULAR: Regular. There is no tachycardia. There is no gallop rub or murmur. ABDOMEN: Abdomen is soft, nontender. Patient has normal bowel sounds. There is no abdominal distention. SKIN: There is no rash. There is no edema. There is no diaphoresis. NEURO: The patient is lethargic and does not cooperate with neurologic exam. Patient opens her eyes and makes eye contact after awakening with verbal and tactile stimulation but patient does not answer questions. MUSCULOSKELETAL: There is no evidence of acute injury. ED Course Vital Signs 05/03/21 13:32 Temperature 98.4 F Pulse Rate 70 Respiratory 16 Rate Blood Pressure 160/65 [Right] O2 Sat by Pulse 98 Oximetry ED Medical Decision Making - Lab Data Result diagrams: 05/03/21 14:30 05/03/21 14:30 Laboratory Tests 05/03/21 05/03/21 05/03/21 14:30 14:30 14:30 WBC 13.5 H RBC 3.73 Hgb 11.6 Hct 37.5 MCV 101 H MCH 31 MCHC 31 RDW 16.0 H Plt Count 258 Lymph % (Auto) 8.8 L [place] % (Auto) 8.3 H Eos % (Auto) 0.9 Baso % (Auto) 0.8 Lymph # (Auto) 1.2 [place] # (Auto) 1.1 H Eos # (Auto) 0.1 Baso # (Auto) 0.1 Seg Neutrophils % 81.2 H Seg Neutrophils # 10.9 H VBG pH Sodium 134 L Potassium 5.0 Chloride 96.6 L Carbon Dioxide 20 L Anion Gap 22 BUN 38 H Creatinine 7.1 H Estimated GFR 7 BUN/Creatinine Ratio 5 Glucose 288 H Calcium 9.6 Total Bilirubin 0.30 AST 23 ALT 22 Alkaline Phosphatase 226 H Ammonia Total Creatine Kinase 95 CK-MB (CK-2) 2.9 CK-MB (CK-2) Rel Index 3.0 Troponin T 0.076 H Total Protein 8.3 H Albumin 3.9 Albumin/Globulin Ratio 0.9 Triglycerides 133 Cholesterol 187 LDL Cholesterol Direct 91 HDL Cholesterol 67 H Cholesterol/HDL Ratio 2.79 TSH Free T4 05/03/21 05/03/21 05/03/21 14:30 14:30 14:30 WBC RBC Hgb Hct MCV MCH MCHC RDW Plt Count Lymph % (Auto) [place] % (Auto) Eos % (Auto) Baso % (Auto) Lymph # (Auto) [place] # (Auto) Eos # (Auto) Baso # (Auto) Seg Neutrophils % Seg Neutrophils # VBG pH 7.345 Sodium Potassium Chloride Carbon Dioxide Anion Gap BUN Creatinine Estimated GFR BUN/Creatinine Ratio Glucose Calcium Total Bilirubin AST ALT Alkaline Phosphatase Ammonia 11.0 L Total Creatine Kinase CK-MB (CK-2) CK-MB (CK-2) Rel Index Troponin T Total Protein Albumin Albumin/Globulin Ratio Triglycerides Cholesterol LDL Cholesterol Direct HDL Cholesterol Cholesterol/HDL Ratio TSH 0.697 Free T4 0.95 - Radiology Data Radiology results: report reviewed (CT head, CT abdomen pelvis), image reviewed (CT head, CT abdomen pelvis) [facility] [address] [place] [address] Cat Scan Report Signed Patient: LYNETTE MCCONNELL MR#: [id number] [birth year] : 1970 Acct:[id number] Age/Sex: 51 / F ADM Date: 05/03/21 Loc: ED Attending Dr: Ordering Physician: LELIA PAPPAS MD Date of Service: 05/03/21 Procedure(s): CT head/brain wo con Accession Number(s): [id number] cc: LELIA PAPPAS MD . CT head/brain wo con INDICATION / CLINICAL INFORMATION: 51 years Female; Altered mental status, syncope. TECHNIQUE: Routine CT head without contrast. All CT scans at this location are performed using CT dose reduction for ALARA by means of automated exposure control. COMPARISON: None. 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 Otherwise, no acute hemorrhage, mass effect, midline shift, hydrocephalus, or acute, large territ orial infarct. Mild to moderate, diffuse cerebral and cerebellar atrophy. There are areas of decreased attenuation in the white matter of the cerebral hemispheres. These are nonspecific findings and may be related to microangiopathy (hypertension, diabetes, atherosclerosis), given the patient's age. It might be difficult to evaluate for small areas of ischemia without diffusion imaging by MRI. CRANIOCERVICAL JUNCTION: No significant abnormality. ORBITS: Presumed silicone oil injection seen in the right globe. Please clinically correlate. SINUSES / MASTOIDS: Visualized paranasal sinuses and mas toid air cells are essentially clear. ADDITIONAL FINDINGS: Atherosclerotic disease is seen in the anterior and posterior circulation. IMPRESSION: 1. No focal mass, hemorrhage, hydrocephalus, or acute, large territorial infarct. Signer Name: Goldy Reese MD, III Signed: 05/03/2021 3:03 PM Workstation Name: [id number] Transcribed By: HR Dictated By: Goldy Reese MD Electronically Authenticated By: Goldy Reese MD Signed Date/Time: 05/03/21 1503 DD/ 1459 TD/TT: Print Cancel [facility] [address] [place] [address] Cat Scan Report Signed Patient: LYNETTE MCCONNELL MR#: [id number] [birth year] : 1970 ct:[id number] Age/Sex: 51 / F ADM Date: 05/03/21 Loc: ED Attending Dr: Ordering Physician: LELIA PAPPAS MD Date of Service: 05/03/21 Procedure(s): CT abdomen pelvis wo con Accession Number(s): [id number] cc: LELIA PAPPAS MD CT ABDOMEN AND PELVIS WITHOUT CONTRAST INDICATION / CLINICAL INFORMATION: Abdominal pain, diarrhea. TECHNIQUE: Axial CT images were obtained through the abdomen and pelvis without IV contrast. All CT scans at this location are performed using CT dose reduction for ALARA by means of automated exposure control. COMPARISON: None available. FINDINGS: LOWER CHEST: No significant abnormality. LIVER: No significant abnormality. GALLBLADDER: No significant abnormality. BILE DUCTS: No significant abnormality. PANCREAS: No significant abnormality. SPLEEN: No significant abnormality. ADRENALS: No significant abnormality. RIGHT KIDNEY / URETER: No significant abnormality. LEFT KIDNEY / URETER: No significant abnormality. STOMACH / SMALL BOWEL: No significant abnormality. COLON: No significant abnormality. APPENDIX: No significant abnormality. PERITONEUM: No free fluid. No free air. No fluid collection. LYMPH NODES: No significant adenopathy. AORTA / ARTERIES: Moderate atherosclerotic calcification without acute abnormality. IVC / VEINS: No significant abnormality. URINARY BLADDER: Mild circumferential wall thickening. REPRODUCTIVE ORGANS: No significant abnormality. ADDITIONAL FINDINGS: Small fat-containing umbilical hernia.. SKELETAL SYSTEM: Multilevel degenerative changes of the SI joints and lumbar spine. Advanced facet hypertrophy of the lower lumbar spine. IMPRESSION: 1. No CT abnormality to account for patient's abdominal pain. 2. Mild circumferential wall thickening of urinary bladder is nonspecific. Recommend clinical correlation for cystitis. 3. Additional incidental findings as above. Signer Name: Lincoln Chan MD Signed: 05/03/2021 3:10 PM Workstation Name: [id number] Transcribed By: DB Dictated By: LINCOLN CHAN MD Electronically Authenticated By: LINCOLN CHAN MD Signed Date/Time: 05/03/21 1510 DD/ 1505 TD/TT: Print Cancel - Differential Diagnosis AMS, DKA, ICH, dehydration, colitis Critical care attestation.: If time is entered above; I have spent that time in minutes in the direct care of this critically ill patient, excluding procedure time. ED Disposition Clinical Impression: Altered mental status, Diarrhea Disposition: ADMITTED INPATIENT Is pt being admited?: Yes Does the pt Need Aspirin: Yes Condition: Fair Referrals: PRIMARY CARE, [Primary Care Provider] - 3-5 Days Time of Disposition: 16:18 (Hospitalist notified (Dr. Pruitt))
--- NOTE | 2021-05-03 15:15 | Cat Scan Report ---
CT ABDOMEN AND PELVIS WITHOUT CONTRAST INDICATION / CLINICAL INFORMATION: Abdominal pain, diarrhea. TECHNIQUE: Axial CT images were obtained through the abdomen and pelvis without IV contrast. All CT scans at this location are performed using CT dose reduction for ALARA by means of automated exposure control. COMPARISON: None available. FINDINGS: LOWER CHEST: No significant abnormality. LIVER: No significant abnormality. GALLBLADDER: No significant abnormality. BILE DUCTS: No significant abnormality. PANCREAS: No significant abnormality. SPLEEN: No significant abnormality. ADRENALS: No significant abnormality. RIGHT KIDNEY / URETER: No significant abnormality. LEFT KIDNEY / URETER: No significant abnormality. STOMACH / SMALL BOWEL: No significant abnormality. COLON: No significant abnormality. APPENDIX: No significant abnormality. PERITONEUM: No free fluid. No free air. No fluid collection. LYMPH NODES: No significant adenopathy. AORTA / ARTERIES: Moderate atherosclerotic calcification without acute abnormality. IVC / VEINS: No significant abnormality. URINARY BLADDER: Mild circumferential wall thickening. REPRODUCTIVE ORGANS: No significant abnormality. ADDITIONAL FINDINGS: Small fat-containing umbilical hernia.. SKELETAL SYSTEM: Multilevel degenerative changes of the SI joints and lumbar spine. Advanced facet hy pertrophy of the lower lumbar spine. IMPRESSION: 1. No CT abnormality to account for patient's abdominal pain. 2. Mild circumferential wall thickening of urinary bladder is nonspecific. Recommend clinical correla tion for cystitis. 3. Additional incidental findings as above. Signer Name: Lincoln Chan MD Signed: 05/03/2021 3:10 PM Workstation Name: [id number]
[2021-05-03 15:17] LABS: Albumin 3.9 g/dL (3.9-5); Calcium 9.6 mg/dL (8.4-10.2)
[2021-05-03 15:21] LABS: Creatine Kinase MB 2.9 ng/mL (0.0-4.0)
[2021-05-03 15:28] LABS: Free T4 (Free Thyroxine) 0.95 ng/dL (0.76-1.46)
[2021-05-03 15:52] LABS: Chol/HDL Ratio 2.79 %
--- NOTE | 2021-05-03 22:34 | History and Physical Report ---
History of Present Illness Date of examination: 05/03/21 Date of admission: 05/03/21 16:18 Chief complaint: Altered sensorium since a.m. History of present illness: 51-year-old female with past medical history of hypertension, insulin-dependent diabetes and end-stage renal disease on hemodialysis has been having abdominal pain and diarrhea for the past 4 days. Since a.m. patient does not believe he is behaving her normal self. Patient continued to be confused in the emergency room. Patient is lethargic but responsive on verbal commands. Tries to answer questions but unable to answer questions. Responsive diet of life was having diet also fell in the bathroom. No loss of consciousness at that point. But appeared confused. No fever or chills. No exposure to Covid. - Past Medical History --Hypertension: Yes --Heart Attack/AMI: Yes (x2 with stent) --Congestive Heart Failure: Yes --Diabetes: Yes --Renal Disease: Yes --Additional medical history: CHF, AMIx2 - Surgical History --Additional Surgical History: tubal ligation, uterine ablation, multiple bilateral eye sx - Family History --Family history: no significant - Social History --Smoking Status: Never Smoker --Substance Use Type: None (Denies illicit drug use) - Medications Home Medications: Home Medications Medication Instructions Recorded Confirmed Last Taken Type Carvedilol [Coreg] 25 mg PO BID 12/30/17 10/22/19 1 Day Ago History ~02/21/19 Aspirin [Aspirin BABY CHEW TAB] 81 mg PO QDAY 02/22/19 10/22/19 1 Day Ago Histo ry ~02/21/19 Bidil 20/37.5MG See Protocol PO TID 02/22/19 10/22/19 1 Day Ago History ~02/21/19 Calcium Citrate/Vitamin D3 1 each PO DAILY 02/22/19 10/22/19 1 Day Ago History [Calcitrate + Vit D Caplet] ~02/21/19 Insulin Aspart (Nf) [NovoLOG 100 10 units SUB-Q TID 02/22/19 10/22/19 1 Day Ago History UNITS/ML VIAL] ~02/21/19 Famotidine [Pepcid] 10 mg PO BID #60 tablet 02/25/19 10/22/19 Unknown Rx Gabapentin 100 mg PO TID #90 capsule 02/25/19 10/22/19 Unknown Rx Sodium Bicarbonate 650 mg PO TID #60 tablet 02/25/19 10/22/19 Unknown Rx Fluticasone [Flonase] 100 mcg NS BID #1 bottle 10/24/19 Unknown Rx Insulin NPH/Regular [NovoLIN 70/30] 18 unit SUB-Q BIDDIAB #2 vial 10/24/19 Unknown Rx Pantoprazole [Protonix TAB] 40 mg PO BID #30 tablet 10/24/19 Unknown Rx guaiFENesin DM [Guaifenesin Dm 10 ml PO Q4H PRN 10 Days #1 bottle 10/24/19 Unknown Rx Syrup] Review of Systems ROS: Constitutional no weight loss or weight gain no fever or chills HEENT no sore throat no post nasal drip no diplopia Neck no neck stiffness no lymph gland enlargement Chest and lungs no shortness of breath cough or wheezing CVS no chest pain no diaphoresis no palpitations GI no nausea no vomiting no diarrhea Genitourinary system no dysuria no flank pain Musculoskeletal system no muscle pains no joint pains [employer] altered sensorium and lethargic Skin no rash no itching Psychiatric no depression no homicidal or suicidal tendencies Hematologic no lymphedema or bruising Endocrine no polydipsia no polyuria no cold intolerance no heat intolerance Medications and Allergies Allergies Allergy/AdvReac Type Severity Reaction Status Date / Time ibuprofen [From Motrin] AdvReac Unknown Verified 12/27/17 22:53 lisinopril AdvReac Unknown Verified 02/22/19 07:08 sulfamethoxazole AdvReac Unknown Verified 12/27/17 22:53 [From Bactrim] trimethoprim [From Bactrim] AdvReac Unknown Verified 12/27/17 22:53 Home Medications Medication Instructions Recorded Confirmed Last Taken Type Carvedilol [Coreg] 25 mg PO BID 12/30/17 10/22/19 1 Day Ago History ~02/21/19 Aspirin [Aspirin BABY CHEW TAB] 81 mg PO QDAY 02/22/19 10/22/19 1 Day Ago History ~02/21/19 Bidil 20/37.5MG See Protocol PO TID 02/22/19 10/22/19 1 Day Ago History ~02/21/19 Calcium Citrate/Vitamin D3 1 each PO DAILY 02/22/19 10/22/19 1 Day Ago History [Calcitrate + Vit D Caplet] ~02/21/19 Insulin Aspart (Nf) [NovoLOG 100 10 units SUB-Q TID 02/22/19 10/22/19 1 Day Ago History UNITS/ML VIAL] ~02/21/19 Famotidine [Pepcid] 10 mg PO BID #60 tablet 02/25/19 10/22/19 Unknown Rx Gabapentin 100 mg PO TID #90 capsule 02/25/19 10/22/19 Unknown Rx Sodium Bicarbonate 650 mg PO TID #60 tablet 02/25/19 10/22/19 Unknown Rx Fluticasone [Flonase] 100 mcg NS BID #1 bottle 10/24/19 Unknown Rx Insulin NPH/Regular [NovoLIN 70/30] 18 unit SUB-Q BIDDIAB #2 vial 10/24/19 Unknown Rx Pantoprazole [Protonix TAB] 40 mg PO BID #30 tablet 10/24/19 Unknown Rx guaiFENesin DM [Guaifenesin Dm 10 ml PO Q4H PRN 10 Days #1 bottle 10/24/19 Unknown Rx Syrup] Exam - Constitutional Vitals: Temp Pulse Resp BP Pulse Ox 97.6 F 76 17 170/69 96 05/03/21 19:45 05/03/21 21:00 05/03/21 21:00 05/03/21 21:00 05/03/21 21:00 General appearance: Present: no acute distress, well-nourished - EENT Eyes: Present: PERRL ENT: hearing intact, clear oral mucosa - Neck Neck: Present: supple, normal ROM - Respiratory Respiratory effort: normal Respiratory: bilateral: CTA - Cardiovascular Heart rate: 78 Rhythm: regular Heart Sounds: Present: S1 & S2. Absent: rub, click - Extremities Extremities: pulses symmetrical, No edema Peripheral Pulses: within normal limits - Abdominal General gastrointestinal: Present: soft, non-tender, non-distended, normal bowel sounds Female genitourinary: Present: normal - Rectal Rectal Exam: deferred - Integumentary Integumentary: Present: clear, warm, dry - Musculoskeletal Musculoskeletal: generalized weakness - Psychiatric Psychiatric: other (Lethargic and altered sensorium, opens eyes but does not respond to questions) - Neurologic Neurologic: CNII-XII intact, moves all extremities HEART Score - HEART Score Troponin: Troponin T 0.076 ng/mL (0.00-0.029) H 05/03/21 14:30 Results - Labs CBC & Chem 7: 05/04/21 04:32 05/04/21 04:32 Labs: Laboratory Last Values WBC 13.5 K/mm3 (4.5-11.0) H 05/03/21 14:30 RBC 3.73 M/mm3 (3.65-5.03) 05/03/21 14:30 Hgb 11.6 gm/dl (10.1-14.3) 05/03/21 14:30 Hct 37.5 % (30.3-42.9) 05/03/21 14:30 MCV 101 fl (79-97) H 05/03/21 14:30 MCH 31 pg (28-32) 05/03/21 14:30 MCHC 31 % (30-34) 05/03/21 14:30 RDW 16.0 % (13.2-15.2) H 05/03/21 14:30 Plt Count 258 K/mm3 (140-440) 05/03/21 14:30 Lymph % (Auto) 8.8 % (13.4-35.0) L 05/03/21 14:30 [place] % (Auto) 8.3 % (0.0-7.3) H 05/03/21 14:30 Eos % (Auto) 0.9 % (0.0-4.3) 05/03/21 14:30 Baso % (Auto) 0.8 % (0.0-1.8) 05/03/21 14:30 Lymph # (Auto) 1.2 K/mm3 (1.2-5.4) 05/03/21 14:30 [place] # (Auto) 1.1 K/mm3 (0.0-0.8) H 05/03/21 14:30 Eos # (Auto) 0.1 K/mm3 (0.0-0.4) 05/03/21 14:30 Baso # (Auto) 0.1 K/mm3 (0.0-0.1) 05/03/21 14:30 Seg Neutrophils % 81.2 % (40.0-70.0) H 05/03/21 14:30 Seg Neutrophils # 10.9 K/mm3 (1.8-7.7) H 05/03/21 14:30 VBG pH 7.345 (7.320-7.420) 05/03/21 14:30 Sodium 134 mmol/L (137-145) L 05/03/21 14:30 Potassium 5.0 mmol/L (3.6-5.0) 05/03/21 14:30 Chloride 96.6 mmol/L (98-107) L 05/03/21 14:30 Carbon Dioxide 20 mmol/L (22-30) L 05/03/21 14:30 Anion Gap 22 mmol/L 05/03/21 14:30 BUN 38 mg/dL (7-17) H 05/03/21 14:30 Creatinine 7.1 mg/dL (0.6-1.2) H 05/03/21 14:30 Estimated GFR 7 ml/min 05/03/21 14:30 BUN/Creatinine Ratio 5 % 05/03/21 14:30 Glucose 288 mg/dL (65-100) H 05/03/21 14:30 POC Glucose 173 mg/dL (70-105) H 05/03/21 20:05 Calcium 9.6 mg/dL (8.4-10.2) 05/03/21 14:30 Total Bilirubin 0.30 mg/dL (0.1-1.2) 05/03/21 14:30 AST 23 units/L (5-40) 05/03/21 14:30 ALT 22 units/L (7-56) 05/03/21 14:30 Alkaline Phosphatase 226 units/L (35-129) H 05/03/21 14:30 Ammonia 11.0 umol/L (25-60) L 05/03/21 14:30 Total Creatine Kinase 95 units/L (30-135) 05/03/21 14:30 CK-MB (CK-2) 2.9 ng/mL (0.0-4.0) 05/03/21 14:30 CK-MB (CK-2) Rel Index 3.0 (0-4) 05/03/21 14:30 Troponin T 0.076 ng/mL (0.00-0.029) H 05/03/21 14:30 Total Protein 8.3 g/dL (6.3-8.2) H 05/03/21 14:30 Albumin 3.9 g/dL (3.9-5) 05/03/21 14:30 Albumin/Globulin Ratio 0.9 % 05/03/21 14:30 Triglycerides 133 mg/dL (2-149) 05/03/21 14:30 Cholesterol 187 mg/dL (50-199) 05/03/21 14:30 LDL Cholesterol Direct 91 mg/dL (50-130) 05/03/21 14:30 HDL Cholesterol 67 mg/dL (40-59) H 05/03/21 14:30 Cholesterol/HDL Ratio 2.79 % 05/03/21 14:30 TSH 0.697 mlU/mL (0.270-4.200) 05/03/21 14:30 Free T4 0.95 ng/dL (0.76-1.46) 05/03/21 14:30 Short CBC 05/03/21 05/04/21 Range/Units 14:30 04:32 WBC 13.5 H 10.0 (4.5-11.0) K/mm3 Hgb 11.6 10.8 (10.1-14.3) gm/dl Hct 37.5 33.8 (30.3-42.9) % Plt Count 258 232 (140-440) K/mm3 BMP 05/03/21 05/04/21 14:30 04:32 Sodium 134 L 137 Potassium 5.0 4.5 Chloride 96.6 L 101.2 Carbon Dioxide 20 L 15 L BUN 38 H 43 H Creatinine 7.1 H 8.4 H Glucose 288 H 179 H Calcium 9.6 9.3 Cardiac Enzymes 05/03/21 Range/Units 14:30 Total Creatine Kinase 95 (30-135) units/L CK-MB (CK-2) 2.9 (0.0-4.0) ng/mL Troponin T 0.076 H (0.00-0.029) ng/mL Liver Function 05/03/21 05/04/21 Range/Units 14:30 04:32 Total Bilirubin 0.30 0.30 (0.1-1.2) mg/dL AST 23 15 (5-40) units/L ALT 22 17 (7-56) units/L Alkaline Phosphatase 226 H 193 H (35-129) units/L Albumin 3.9 3.3 L (3.9-5) g/dL - Imaging and Cardiology EKG: report reviewed (Sinus rhythm no acute ST-T wave changes) CT scan - abdomen: report reviewed CT Scan - head: report reviewed Imaging and Cardiology: Abdominal CAT scan no acute findings Head CT no acute findings Assessment and Plan Advance Directives: Yes (Full code) VTE prophylaxis?: Chemical Plan of care discussed with patient/family: Yes - Patient Problems (1) Acute metabolic encephalopathy Current Visit: Yes Status: Acute Plan to address problem: Probably secondary to uremia Creatinine is 7.1 and BUN is high Needs emergent hemodialysis Nephrology consult by operations leader nephrology Family unable to tell me about the consulting ignition expert Neurology consult MRI brain if necessary (2) Uremia Current Visit: Yes Status: Acute Plan to address problem: Needs emergent hemodialysis (3) Uncontrolled diabetes mellitus Current Visit: Yes Status: Acute Qualifiers: Diabetes mellitus type: type 2 Coma presence: without coma Plan to address problem: Frequent Accu-Cheks and high-dose insulin sliding scale coverage Check hemoglobin A1c (4) Hypertension Current Visit: Yes Status: Chronic Qualifiers: Hypertension type: primary hypertension Qualified Code(s): I10 - Essential (primary) hypertension Plan to address problem: Continue antihypertensives and adjust medications (5) DVT prophylaxis Current Visit: Yes Status: Acute Plan to address problem: On heparin and GI prophylaxis
[2021-05-03] MEDS ORDERED: guaiFENesin DM 200/20 MG ORAL LIQD 10 ML PO PRN (22:41)
[2021-05-03] MEDS ORDERED: MORPHINE 2 MG/1 ML INJ IV PRN (22:45)
[2021-05-03] MEDS ORDERED: ACETAMINOPHEN 325 MG TAB PO PRN (22:45)
[2021-05-03] MEDS ORDERED: ONDANSETRON 4 MG/2 ML INJ IV PRN (22:45)
[2021-05-03] MEDS ORDERED: METOCLOPRAMIDE 10 MG/2 ML INJ IV PRN (22:45)
[2021-05-03] MEDS ORDERED: carvediloL 25 MG TAB PO SCH (23:00)
[2021-05-03] MEDS: hydrALAZINE 25 MG TAB PO SCH (23:02)
[2021-05-03] MEDS: ISOSORBIDE DINITRATE 20 MG TAB PO SCH (23:03)
[2021-05-03] MEDS: HEPARIN 5,000 UNIT/1 ML VIAL SUB-Q SCH (23:11)
[2021-05-04 05:17] LABS: Basophils # (Auto) 0.2 K/mm3 (0.0-0.1); Basophils % (Auto) 1.7 % (0.0-1.8); Eosinophils # (Auto) 0.2 K/mm3 (0.0-0.4); Eosinophils % (Auto) 2.2 % (0.0-4.3); Hematocrit 33.8 % (30.3-42.9); Hemoglobin 10.8 gm/dl (10.1-14.3); Lymphocytes # (Auto) 0.8 K/mm3 (1.2-5.4); Lymphocytes % (Auto) 8.4 % (13.4-35.0); Mean Corpuscular HGB Conc 32 % (30-34); Mean Corpuscular Volume 100 fl (79-97); Monocytes # (Auto) 0.7 K/mm3 (0.0-0.8); Monocytes % (Auto) 7.2 % (0.0-7.3); Platelet Count 232 K/mm3 (140-440); Red Blood Count 3.39 M/mm3 (3.65-5.03); Red Cell Distribution Width 15.8 % (13.2-15.2)
[2021-05-04 05:54] LABS: Albumin 3.3 g/dL (3.9-5); Calcium 9.3 mg/dL (8.4-10.2)
[2021-05-04] MEDS: hydrALAZINE 25 MG TAB PO SCH ×2 (06:58→13:04)
[2021-05-04] MEDS: PANTOPRAZOLE 40 MG TAB PO SCH (10:01)
[2021-05-04] MEDS: ISOSORBIDE DINITRATE 20 MG TAB PO SCH (10:01)
[2021-05-04] MEDS: FAMOTIDINE 10 MG TAB PO SCH (10:02)
[2021-05-04] MEDS: SODIUM BICARBONATE 650 MG TAB PO SCH ×2 (10:02→13:05)
[2021-05-04] MEDS: HEPARIN 5,000 UNIT/1 ML VIAL SUB-Q SCH (10:02)
[2021-05-04] MEDS: carvediloL 25 MG TAB PO SCH ×2 (10:02→16:28)
[2021-05-04] MEDS: GABAPENTIN 100 MG CAP PO SCH ×2 (10:03→13:05)
[2021-05-04] MEDS: CALCIUM CITRATE/VITAMIN D3 315 MG/250 UNITS TAB PO SCH (10:03)
[2021-05-04] MEDS: FLUTICASONE PROPIONATE NASAL SPRAY 16 GM NS SCH (10:03)
[2021-05-04] MEDS: INSULIN LISPRO 100 UNIT/ML SUB-Q SCH ×3 (10:06→16:28)
--- NOTE | 2021-05-04 10:35 | Consultation ---
History of Present Illness - Reason for Consult Consult date: 05/04/21 end stage renal disease - History of Present Illness This is a 51 year old female who presented to the hospital today with a chief complaint of diarrhea and abdominal pain for the last few days. Patient was also found to be confused and lethargic in E.R. Patient has ESRD and is on hemodialysis at [place] on M,W,F. Patient is due for hemodialysis today. We are being consulted for management of this patient's ESRD. Past History Past Medical History: diabetes, dialysis, ESRD, hypertension Past Surgical History: Other (dialysis access) Social history: no significant social history Family history: no significant family history Medications and Allergies Allergies Allergy/AdvReac Type Severity Reaction Status Date / Time ibuprofen [From Motrin] AdvReac Unknown Verified 12/27/17 22:53 lisinopril AdvReac Unknown Verified 02/22/19 07:08 sulfamethoxazole AdvReac Unknown Verified 12/27/17 22:53 [From Bactrim] trimethoprim [From Bactrim] AdvReac Unknown Verified 12/27/17 22:53 Home Medications Medication Instructions Recorded Confirmed Last Taken Type Carvedilol [Coreg] 25 mg PO BID 12/30/17 10/22/19 1 Day Ago History ~02/21/19 Aspirin [Aspirin BABY CHEW TAB] 81 mg PO QDAY 02/22/19 10/22/19 1 Day Ago History ~02/21/19 Bidil 20/37.5MG See Protocol PO TID 02/22/19 10/22/19 1 Day Ago History ~02/21/19 Calcium Citrate/Vitamin D3 1 each PO DAILY 02/22/19 10/22/19 1 Day Ago History [Calcitrate + Vit D Caplet] ~02/21/19 Insulin Aspart (Nf) [NovoLOG 100 10 units SUB-Q TID 02/22/19 10/22/19 1 Day Ago History UNITS/ML VIAL] ~02/21/19 Famotidine [Pepcid] 10 mg PO BID #60 tablet 02/25/19 10/22/19 Unknown Rx Gabapentin 100 mg PO TID #90 capsule 02/25/19 10/22/19 Unknown Rx Sodium Bicarbonate 650 mg PO TID #60 tablet 02/25/19 10/22/19 Unknown Rx Fluticasone [Flonase] 100 mcg NS BID #1 bottle 10/24/19 Unknown Rx Insulin NPH/Regular [NovoLIN 70/30] 18 unit SUB-Q BIDDIAB #2 vial 10/24/19 Unknown Rx Pantoprazole [Protonix TAB] 40 mg PO BID #30 tablet 10/24/19 Unknown Rx guaiFENesin DM [Guaifenesin Dm 10 ml PO Q4H PRN 10 Days #1 bottle 10/24/19 Un known Rx Syrup] Active Meds: Active Medications Acetaminophen (Acetaminophen 325 Mg Tab) 650 mg PO Q4H PRN PRN Reason: Pain MILD(1-3)/Fever >100.5/AMARO Calcium Citrate (Calcium Citrate/Vitamin D3 315 Mg/250 Units Tab) 1 each PO DAILY [facility] Last Admin: 05/04/21 10:03 Dose: 1 each Documented by: Carvedilol (Carvedilol 25 Mg Tab) 25 mg PO BID@0800,1700 [facility] Last Admin: 05/04/21 10:02 Dose: 25 mg Documented by: Famotidine (Famotidine 10 Mg Tab) 10 mg PO BID [facility] Last Admin: 05/04/21 10:02 Dose: 10 mg Documented by: Fluticasone Propionate (Fluticasone Propionate Nasal [place] 16 Gm) 100 mcg NS BID [facility] Last Admin: 05/04/21 10:03 Dose: 100 mcg Documented by: Gabapentin (Gabapentin 100 Mg Cap) 100 mg PO TID [facility] Last Admin: 05/04/21 10:03 Dose: 100 mg Documented by: Guaifenesin (Guaifenesin Dm 200/20 Mg Oral Liqd 10 Ml) 10 ml PO Q4H PRN PRN Reason: Cough Heparin Sodium (Porcine) (Heparin 5,000 Unit/1 Ml Vial) 5,000 unit SUB-Q Q12HR [facility] Last Admin: 05/04/21 10:02 Dose: 5,000 unit Documented by: Hydralazine HCl (Hydralazine 25 Mg Tab) 50 mg PO Q8HR [facility] Last Admin: 05/04/21 06:58 Dose: Not Given Documented by: Insulin Human Lispro (Insulin Lispro 100 Unit/Ml) 0 unit SUB-Q ACHS [facility]; Protocol Last Admin: 05/04/21 10:06 Dose: Not Given Documented by: Isosorbide Dinitrate (Isosorbide Dinitrate 20 Mg Tab) 20 mg PO BID [facility] Last Admin: 05/04/21 10:01 Dose: 20 mg Documented by: Metoclopramide HCl (Metoclopramide 10 Mg/2 Ml Inj) 5 mg IV Q6H PRN PRN Reason: Nausea And Vomiting Morphine Sulfate (Morphine 2 Mg/1 Ml Inj) 2 mg IV Q4H PRN PRN Reason: Pain, Moderate (4-6) Ondansetron HCl (Ondansetron 4 Mg/2 Ml Inj) 4 mg IV Q8H PRN PRN Reason: Nausea And Vomiting Pantoprazole Sodium (Pantoprazole 40 Mg Tab) 40 mg PO BID [facility] Last Admin: 05/04/21 10:01 Dose: 40 mg Documented by: Sodium Bicarbonate (Sodium Bicarbonate 650 Mg Tab) 650 mg PO TID [facility] Last Admin: 05/04/21 10:02 Dose: 650 mg Documented by: Sodium Chloride (Sodium Chloride 0.9% 10 Ml Flush Syringe) 10 ml IV BID [facility] Last Admin: 05/04/21 10:03 Dose: 10 ml Documented by: Sodium Chloride (Sodium Chloride 0.9% 10 Ml Flush Syringe) 10 ml IV PRN PRN PRN Reason: LINE FLUSH Review of Systems ROS unobtainable: due to mental status Exam - Vital Signs Vital signs: Vital Signs Temp Pulse Resp BP Pulse Ox 98.4 F 70 16 160/65 98 05/03/21 13:32 05/03/21 13:32 05/03/21 13:32 05/03/21 13:32 05/03/21 13:32 - General Appearance General appearance: other (Lethargic) EENT: ATNC Neck: Present: neck supple Respiratory: Decreased Breath Sounds Heart: S1S2 Gastrointestinal: Present: normoactive bowel sounds Integumentary: warm and dry Neurologic: other (Lethargic) Musculoskeletal: Present: other (No edema) Results - Lab Results 05/04/21 04:32 05/04/21 04:32 Most recent lab results Calcium 9.3 mg/dL (8.4-10.2) 05/04/21 04:32 Assessment and Plan Assessment: End Stage Renal Disease on hemodialysis Altered Mental Status Diabetes Mellitus Hypertension Plan: Hemodialysis today for UF and clearance Fluid restriction of 1 liter per day Obtain daily weights Monitor I/O's daily Renally dose medications Assess dialysis needs daily Renal plan reviewed by Dr. Melo
--- NOTE | 2021-05-04 15:19 | Progress Note ---
Assessment and Plan Assessment and plan: 51-year-old female with past medical history of hypertension, insulin-dependent diabetes and end-stage renal disease on hemodialysis has been having abdominal pain and diarrhea for the past 4 days. Since a.m. patient does not believe he is behaving her normal self. Patient continued to be confused in the emergency room. Patient is lethargic but responsive on verbal commands. Tries to answer questions but unable to answer questions. Responsive diet of life was having diet also fell in the bathroom. No loss of consciousness at that point. But appeared confused. No fever or chills. No exposure to Covid. (1) Acute metabolic encephalopathy Current Visit: Yes Status: Acute Plan to address problem: Probably secondary to uremia Creatinine is 7.1 and BUN is high Needs emergent hemodialysis Nephrology consult by foundation relations director nephrology Family unable to tell me about the consulting disc pad plate filler Neurology consult MRI brain if necessary (2) Uremia Current Visit: Yes Status: Acute Plan to address problem: Needs emergent hemodialysis (3) Diabetes mellitus Current Visit: Yes Status: Acute Qualifiers: Diabetes mellitus type: type 2 Coma presence: without coma Plan to address problem: Frequent Accu-Cheks and high-dose insulin sliding scale coverage Check hemoglobin A1c (4) Hypertension Current Visit: Yes Status: Chronic Qualifiers: Hypertension type: primary hypertension Qualified Code(s): I10 - Essential (primary) hypertension Plan to address problem: Continue antihypertensives and adjust medications (5) End Stage Renal Disease on hemodialysis (6) Metabolic Acidosis (7) Type 2 NTSEMI (8) DVT prophylaxis Current Visit: Yes Status: Acute Plan to address problem: On heparin and GI prophylaxis 05/04: Patient seen and examined, Still lethargic, awaiting HD to see if improvement, imaging studies of the head is negative History Interval history: Patient seen and examined still quite lethargic and sleepy Hospitalist Physical - Physical exam Narrative exam: General appearance: Present: no acute distress, well-nourished - EENT Eyes: Present: PERRL ENT: hearing intact, clear oral mucosa - Neck Neck: Present: supple, normal ROM - Respiratory Respiratory effort: normal Respiratory: bilateral: CTA - Cardiovascular Heart rate: 78 Rhythm: regular Heart Sounds: Present: S1 & S2. Absent: rub, click - Extremities Extremities: pulses symmetrical, No edema Peripheral Pulses: within normal limits - Abdominal General gastrointestinal: Present: soft, non-tender, non-distended, normal bowel sounds Female genitourinary: Present: normal - Rectal Rectal Exam: deferred - Integumentary Integumentary: Present: clear, warm, dry - Musculoskeletal Musculoskeletal: generalized weakness - Psychiatric Psychiatric: other (Lethargic and altered sensorium, opens eyes but does not respond to questions) - Neurologic Neurologic: CNII-XII intact, moves all extremities - Constitutional Vitals: Temp Pulse Resp BP Pulse Ox 98.6 F 77 13 128/65 98 05/04/21 08:27 05/04/21 12:06 05/04/21 08:27 05/04/21 08:27 05/04/21 12:07 General appearance: Present: no acute distress, well-nourished HEART Score - HEART Score Troponin: Troponin T 0.076 ng/mL (0.00-0.029) H 05/03/21 14:30 Results - Labs CBC & Chem 7: 05/04/21 04:32 05/04/21 04:32 Labs: Laboratory Last Values WBC 10.0 K/mm3 (4.5-11.0) 05/04/21 04:32 RBC 3.39 M/mm3 (3.65-5.03) L 05/04/21 04:32 Hgb 10.8 gm/dl (10.1-14.3) 05/04/21 04:32 Hct 33.8 % (30.3-42.9) 05/04/21 04:32 MCV 100 fl (79-97) H 05/04/21 04:32 MCH 32 pg (28-32) 05/04/21 04:32 MCHC 32 % (30-34) 05/04/21 04:32 RDW 15.8 % (13.2-15.2) H 05/04/21 04:32 Plt Count 232 K/mm3 (140-440) 05/04/21 04:32 Lymph % (Auto) 8.4 % (13.4-35.0) L 05/04/21 04:32 [place] % (Auto) 7.2 % (0.0-7.3) 05/04/21 04:32 Eos % (Auto) 2.2 % (0.0-4.3) 05/04/21 04:32 Baso % (Auto) 1.7 % (0.0-1.8) 05/04/21 04:32 Lymph # (Auto) 0.8 K/mm3 (1.2-5.4) L 05/04/21 04:32 [place] # (Auto) 0.7 K/mm3 (0.0-0.8) 05/04/21 04:32 Eos # (Auto) 0.2 K/mm3 (0.0-0.4) 05/04/21 04:32 Baso # (Auto) 0.2 K/mm3 (0.0-0.1) H 05/04/21 04:32 Seg Neutrophils % 80.5 % (40.0-70.0) H 05/04/21 04:32 Seg Neutrophils # 8.1 K/mm3 (1.8-7.7) H 05/04/21 04:32 VBG pH 7.345 (7.320-7.420) 05/03/21 14:30 Sodium 137 mmol/L (137-145) 05/04/21 04:32 Potassium 4.5 mmol/L (3.6-5.0) 05/04/21 04:32 Chloride 101.2 mmol/L (98-107) 05/04/21 04:32 Carbon Dioxide 15 mmol/L (22-30) L 05/04/21 04:32 Anion Gap 25 mmol/L 05/04/21 04:32 BUN 43 mg/dL (7-17) H 05/04/21 04:32 Creatinine 8.4 mg/dL (0.6-1.2) H 05/04/21 04:32 Estimated GFR 6 ml/min 05/04/21 04:32 BUN/Creatinine Ratio 5 % 05/04/21 04:32 Glucose 179 mg/dL (65-100) H 05/04/21 04:32 POC Glucose 173 mg/dL (70-105) H 05/03/21 20:05 Calcium 9.3 mg/dL (8.4-10.2) 05/04/21 04:32 Total Bilirubin 0.30 mg/dL (0.1-1.2) 05/04/21 04:32 AST 15 units/L (5-40) 05/04/21 04:32 ALT 17 units/L (7-56) 05/04/21 04:32 Alkaline Phosphatase 193 units/L (35-129) H 05/04/21 04:32 Ammonia 11.0 umol/L (25-60) L 05/03/21 14:30 Total Creatine Kinase 95 units/L (30-135) 05/03/21 14:30 CK-MB (CK-2) 2.9 ng/mL (0.0-4.0) 05/03/21 14:30 CK-MB (CK-2) Rel Index 3.0 (0-4) 05/03/21 14:30 Troponin T 0.076 ng/mL (0.00-0.029) H 05/03/21 14:30 Total Protein 7.2 g/dL (6.3-8.2) 05/04/21 04:32 Albumin 3.3 g/dL (3.9-5) L 05/04/21 04:32 Albumin/Globulin Ratio 0.8 % 05/04/21 04:32 Triglycerides 133 mg/dL (2-149) 05/03/21 14:30 Cholesterol 187 mg/dL (50-199) 05/03/21 14:30 LDL Cholesterol Direct 91 mg/dL (50-130) 05/03/21 14:30 HDL Cholesterol 67 mg/dL (40-59) H 05/03/21 14:30 Cholesterol/HDL Ratio 2.79 % 05/03/21 14:30 TSH 0.697 mlU/mL (0.270-4.200) 05/03/21 14:30 Free T4 0.95 ng/dL (0.76-1.46) 05/03/21 14:30 Active Medications - Current Medications Current Medications: Generic Name Dose Route Start Last Admin Trade Name Freq PRN Reason Stop Dose Admin Acetaminophen 650 mg 05/03/21 22:45 Acetaminophen 325 Mg Tab PO Q4H PRN Pain MILD(1-3)/Fever >100.5/AMARO Calcium Citrate 1 each 05/04/21 10:00 05/04/21 10:03 Calcium Citrate/Vitamin D3 315 Mg/250 Units Tab PO 1 each DAILY [facility] Administration Carvedilol 25 mg 05/04/21 08:00 05/04/21 10:02 Carvedilol 25 Mg Tab PO 25 mg BID@0800,1700 [facility] Administration Famotidine 10 mg 05/04/21 10:00 05/04/21 10:02 Famotidine 10 Mg Tab PO 10 mg BID [facility] Administration Fluticasone Propionate 100 mcg 05/04/21 10:00 05/04/21 10:03 Fluticasone Propionate Nasal [place] 16 Gm NS 100 mcg BID [facility] Administration Gabapentin 100 mg 05/04/21 08:00 05/04/21 13:05 Gabapentin 100 Mg Cap PO Not Given TID [facility] Guaifenesin 10 ml 05/03/21 22:41 Guaifenesin Dm 200/20 Mg Oral Liqd 10 Ml PO Q4H PRN Cough Heparin Sodium (Porcine) 5,000 unit 05/03/21 23:00 05/04/21 10:02 Heparin 5,000 Unit/1 Ml Vial SUB-Q 5,000 unit Q12HR [facility] Administration Hydralazine HCl 50 mg 05/03/21 23:00 05/04/21 13:04 Hydralazine 25 Mg Tab PO Not Given Q8HR [facility] Insulin Human Lispro 0 unit 05/04/21 07:30 05/04/21 13:04 Insulin Lispro 100 Unit/Ml SUB-Q Not Given ACHS [facility] Protocol Isosorbide Dinitrate 20 mg 05/03/21 23:00 05/04/21 10:01 Isosorbide Dinitrate 20 Mg Tab PO 20 mg BID [facility] Administration Metoclopramide HCl 5 mg 05/03/21 22:45 Metoclopramide 10 Mg/2 Ml Inj IV Q6H PRN Nausea And Vomiting Morphine Sulfate 2 mg 05/03/21 22:45 Morphine 2 Mg/1 Ml Inj IV Q4H PRN Pain, Moderate (4-6) Ondansetron HCl 4 mg 05/03/21 22:45 Ondansetron 4 Mg/2 Ml Inj IV Q8H PRN Nausea And Vomiting Pantoprazole Sodium 40 mg 05/04/21 10:00 05/04/21 10:01 Pantoprazole 40 Mg Tab PO 40 mg BID [facility] Administration Sodium Bicarbonate 650 mg 05/04/21 08:00 05/04/21 13:05 Sodium Bicarbonate 650 Mg Tab PO Not Given TID [facility] Sodium Chloride 10 ml 05/03/21 23:00 05/04/21 10:03 Sodium Chloride 0.9% 10 Ml Flush Syringe IV 10 ml BID [facility] Administration Sodium Chloride 10 ml 05/03/21 22:45 Sodium Chloride 0.9% 10 Ml Flush Syringe IV PRN PRN LINE FLUSH
[2021-05-04 19:04] LABS: Hepatitis C Virus Antibody Non-Reactive (NonReactive)
[2021-05-04 19:06] LABS: Hepatitis B Surface Antigen Nonreactive (Negative)
[2021-05-05] MEDS: D5W/0.9% NACL 1,000 ML IV SCH (00:08)
[2021-05-05] MEDS: hydrALAZINE 20 MG/1 ML INJ IV PRN (00:26)
[2021-05-05] MEDS: GABAPENTIN 100 MG CAP PO SCH (08:29)
[2021-05-05] MEDS: hydrALAZINE 25 MG TAB PO SCH ×3 (08:29→21:53)
[2021-05-05] MEDS: SODIUM BICARBONATE 650 MG TAB PO SCH ×3 (08:29→21:53)
[2021-05-05] MEDS: FLUTICASONE PROPIONATE NASAL SPRAY 16 GM NS SCH ×3 (08:29→21:54)
[2021-05-05] MEDS: FAMOTIDINE 10 MG TAB PO SCH ×3 (08:30→21:55)
[2021-05-05] MEDS: INSULIN LISPRO 100 UNIT/ML SUB-Q SCH ×5 (08:30→21:51)
[2021-05-05] MEDS: HEPARIN 5,000 UNIT/1 ML VIAL SUB-Q SCH ×3 (08:30→21:54)
[2021-05-05] MEDS: PANTOPRAZOLE 40 MG TAB PO SCH ×3 (08:30→21:55)
[2021-05-05] MEDS: ISOSORBIDE DINITRATE 20 MG TAB PO SCH ×3 (08:30→21:54)
[2021-05-05] MEDS: carvediloL 25 MG TAB PO SCH ×2 (08:31→16:42)
--- NOTE | 2021-05-05 09:03 | Consultation ---
History of Present Illness Consult date: 05/05/21 Reason for Consult: Confusion History of present illness: Altered sensorium since a.m. History of present illness: 51-year-old female with past medical history of hypertension, insulin-dependent diabetes and end-stage renal disease on hemodialysis has been having abdominal pain and diarrhea for the past 4 days. Since a.m. patient does not behaving her normal . Patient continued to be confused in the emergency room. Patient is lethargic but responsive to verbal commands. Tries to answer questions but unable to answer questions. Responsive diet of life was having diet also fell in the bathroom. No loss of consciousness at that point. But appeared confused. No fever or chills. No exposure to Covid. in ER Ct brain is unremarkable MRI brain today is unremarkable she is lathergic fall asleep easily difficult to awak disoriented to place or date , nor birthday exam is none focal no neck rigidity is noted BUN/Cr.#43/8.4 - Past Medical History --Hypertension: Yes --Heart Attack/AMI: Yes (x2 with stent) --Congestive Heart Failure: Yes --Diabetes: Yes --Renal Disease: Yes --Additional medical history: CHF, AMIx2 - Surgical History --Additional Surgical History: tubal ligation, uterine ablation, multiple bilateral eye sx - Family History --Family history: no significant - Social History --Smoking Status: Never Smoker --Substance Use Type: None (Denies illicit drug use) - Medications Home Medications: Home Medications Medication Instructions Recorded Confirmed Last Taken Type Carvedilol [Coreg] 25 mg PO BID 12/30/17 10/22/19 1 Day Ago History ~02/21/19 Aspirin [Aspirin BABY CHEW TAB] 81 mg PO QDAY 02/22/19 10/22/19 1 Day Ago History ~02/21/19 Bidil 20/37.5MG See Protocol PO TID 02/22/19 10/22/19 1 Day Ago History ~02/21/19 Calcium Citrate/Vitamin D3 1 each PO DAILY 02/22/19 10/22/19 1 Day Ago History [Calcitrate + Vit D Caplet] ~02/21/19 Insulin Aspart (Nf) [NovoLOG 100 10 units SUB-Q TID 02/22/19 10/22/19 1 Day Ago History UNITS/ML VIAL] ~02/21/19 Famotidine [Pepcid] 10 mg PO BID #60 tablet 02/25/19 10/22/19 Unknown Rx Gabapentin 100 mg PO TID #90 capsule 02/25/19 10/22/19 Unknown Rx Sodium Bicarbonate 650 mg PO TID #60 tablet 02/25/19 10/22/19 Unknown Rx Fluticasone [Flonase] 100 mcg NS BID #1 bottle 10/24/19 Unknown Rx Insulin NPH/Regular [NovoLIN 70/30] 18 unit SUB-Q BIDDIAB #2 vial 10/24/19 Unknown Rx Pantoprazole [Protonix TAB] 40 mg PO BID #30 tablet 10/24/19 Unknown Rx guaiFENesin DM [Guaifenesin Dm 10 ml PO Q4H PRN 10 Days #1 bottle 10/24/19 Unknown Rx Syrup] Review of Systems ROS: Constitutional no weight loss or weight gain no fever or chills HEENT no sore throat no post nasal drip no diplopia Neck no neck stiffness no lymph gland enlargement Chest and lungs no shortness of breath cough or wheezing CVS no chest pain no diaphoresis no palpitations GI no nausea no vomiting no diarrhea Genitourinary system no dysuria no flank pain Musculoskeletal system no muscle pains no joint pains [employer] altered sensorium and lethargic Skin no rash no itching Psychiatric no depression no homicidal or suicidal tendencies Hematologic no lymphedema or bruising Endocrine no polydipsia no polyuria no cold intolerance no heat intolerance Medications and Allergies Allergies Allergy/AdvReac Type Severity Reaction Status Date / Time ibuprofen [From Motrin] AdvReac Unknown Verified 12/27/17 22:53 lisinopril AdvReac Unknown Verified 02/22/19 07:08 sulfamethoxazole AdvReac Unknown Verified 12/27/17 22:53 [From Bactrim] trimethoprim [From Bactrim] AdvReac Unknown Verified 12/27/17 22:53 Home Medications Medication Instructions Recorded Confirmed Last Taken Type Carvedilol [Coreg] 25 mg PO BID 12/30/17 10/22/19 1 Day Ago History ~02/21/19 Aspirin [Aspirin BABY CHEW TAB] 81 mg PO QDAY 02/22/19 10/22/19 1 Day Ago History ~02/21/19 Bidil 20/37.5MG See Protocol PO TID 02/22/19 10/22/19 1 Day Ago History ~02/21/19 Calcium Citrate/Vitamin D3 1 each PO DAILY 02/22/19 10/22/19 1 Day Ago History [Calcitrate + Vit D Caplet] ~02/21/19 Insulin Aspart (Nf) [NovoLOG 100 10 units SUB-Q TID 02/22/19 10/22/19 1 Day Ago History UNITS/ML VIAL] ~02/21/19 Famotidine [Pepcid] 10 mg PO BID #60 tablet 02/25/19 10/22/19 Unknown Rx Gabapentin 100 mg PO TID #90 capsule 02/25/19 10/22/19 Unknown Rx Sodium Bicarbonate 650 mg PO TID #60 tablet 02/25/19 10/22/19 Unknown Rx Fluticasone [Flonase] 100 mcg NS BID #1 bottle 10/24/19 Unknown Rx Insulin NPH/Regular [NovoLIN 70/30] 18 unit SUB-Q BIDDIAB #2 vial 10/24/19 Unknown Rx Pantoprazole [Protonix TAB] 40 mg PO BID #30 tablet 10/24/19 Unknown Rx guaiFENesin DM [Guaifenesin Dm 10 ml PO Q4H PRN 10 Days #1 bottle 10/24/19 Unknown Rx Syrup] Past History Past Medical History: diabetes, dialysis, ESRD, hypertension Past Surgical History: Other (dialysis access) Social history: no significant social history Family history: no significant family history Medications and Allergies Allergies Allergy/AdvReac Type Severity Reaction Status Date / Time ibuprofen [From Motrin] AdvReac Unknown Verified 12/27/17 22:53 lisinopril AdvReac Unknown Verified 02/22/19 07:08 sulfamethoxazole AdvReac Unknown Verified 12/27/17 22:53 [From Bactrim] trimethoprim [From Bactrim] AdvReac Unknown Verified 12/27/17 22:53 Home Medications Medication Instructions Recorded Confirmed Last Taken Type Carvedilol [Coreg] 25 mg PO BID 12/30/17 10/22/19 1 Day Ago History ~02/21/19 Aspirin [Aspirin BABY CHEW TAB] 81 mg PO QDAY 02/22/19 10/22/19 1 Day Ago History ~02/21/19 Bidil 20/37.5MG See Protocol PO TID 02/22/19 10/22/19 1 Day Ago History ~02/21/19 Calcium Citrate/Vitamin D3 1 each PO DAILY 02/22/19 10/22/19 1 Day Ago History [Calcitrate + Vit D Caplet] ~02/21/19 Insulin Aspart (Nf) [NovoLOG 100 10 units SUB-Q TID 02/22/19 10/22/19 1 Day Ago History UNITS/ML VIAL] ~02/21/19 Famotidine [Pepcid] 10 mg PO BID #60 tablet 02/25/19 10/22/19 Unknown Rx Gabapentin 100 mg PO TID #90 capsule 02/25/19 10/22/19 Unknown Rx Sodium Bicarbonate 650 mg PO TID #60 tablet 02/25/19 10/22/19 Unknown Rx Fluticasone [Flonase] 100 mcg NS BID #1 bottle 10/24/19 Unknown Rx Insulin NPH/Regular [NovoLIN 70/30] 18 unit SUB-Q BIDDIAB #2 vial 10/24/19 Unknown Rx Pantoprazole [Protonix TAB] 40 mg PO BID #30 tablet 10/24/19 Unknown Rx guaiFENesin DM [Guaifenesin Dm 10 ml PO Q4H PRN 10 Days #1 bottle 10/24/19 Unknown Rx Syrup] Active Meds: Active Medications Acetaminophen (Acetaminophen 325 Mg Tab) 650 mg PO Q4H PRN PRN Reason: Pain MILD(1-3)/Fever >100.5/AMARO Calcium Citrate (Calcium Citrate/Vitamin D3 315 Mg/250 Units Tab) 1 each PO DAILY [facility] Last Admin: 05/04/21 10:03 Dose: 1 each Documented by: Carvedilol (Carvedilol 25 Mg Tab) 25 mg PO BID@0800,1700 [facility] Last Admin: 05/05/21 08:31 Dose: Not Given Documented by: Famotidine (Famotidine 10 Mg Tab) 10 mg PO BID [facility] Last Admin: 05/05/21 08:30 Dose: Not Given Documented by: Fluticasone Propionate (Fluticasone Propionate Nasal [place] 16 Gm) 100 mcg NS BID [facility] Last Admin: 05/05/21 08:29 Dose: Not Given Documented by: Gabapentin (Gabapentin 100 Mg Cap) 100 mg PO TID [facility] Last Admin: 05/05/21 08:29 Dose: Not Given Documented by: Guaifenesin (Guaifenesin Dm 200/20 Mg Oral Liqd 10 Ml) 10 ml PO Q4H PRN PRN Reason: Cough Heparin Sodium (Porcine) (Heparin 5,000 Unit/1 Ml Vial) 5,000 unit SUB-Q Q12HR [facility] Last Admin: 05/05/21 08:30 Dose: Not Given Documented by: Hydralazine HCl (Hydralazine 25 Mg Tab) 50 mg PO Q8HR [facility] Last Admin: 05/05/21 08:29 Dose: Not Given Documented by: Hydralazine HCl (Hydralazine 20 Mg/1 Ml Inj) 10 mg IV Q6H PRN PRN Reason: Hypertension Last Admin: 05/05/21 00:26 Dose: 10 mg Documented by: Dextrose/Sodium Chloride (D5ns) 1,000 mls @ 42 mls/hr IV DIRECT [facility] Last Admin: 05/05/21 00:08 Dose: 42 mls/hr Documented by: Insulin Human Lispro (Insulin Lispro 100 Unit/Ml) 0 unit SUB-Q ACHS MARISSA; Protoc ol Last Admin: 05/05/21 08:31 Dose: Not Given Documented by: Isosorbide Dinitrate (Isosorbide Dinitrate 20 Mg Tab) 20 mg PO BID [facility] Last Admin: 05/05/21 08:30 Dose: Not Given Documented by: Metoclopramide HCl (Metoclopramide 10 Mg/2 Ml Inj) 5 mg IV Q6H PRN PRN Reason: Nausea And Vomiting Morphine Sulfate (Morphine 2 Mg/1 Ml Inj) 2 mg IV Q4H PRN PRN Reason: Pain, Moderate (4-6) Ondansetron HCl (Ondansetron 4 Mg/2 Ml Inj) 4 mg IV Q8H PRN PRN Reason: Nausea And Vomiting Pantoprazole Sodium (Pantoprazole 40 Mg Tab) 40 mg PO BID [facility] Last Admin: 05/05/21 08:30 Dose: Not Given Documented by: Sodium Bicarbonate (Sodium Bicarbonate 650 Mg Tab) 650 mg PO TID [facility] Last Admin: 05/05/21 08:29 Dose: Not Given Documented by: Sodium Chloride (Sodium Chloride 0.9% 10 Ml Flush Syringe) 10 ml IV BID [facility] Last Admin: 05/05/21 08:30 Dose: Not Given Documented by: Sodium Chloride (Sodium Chloride 0.9% 10 Ml Flush Syringe) 10 ml IV PRN PRN PRN Reason: LINE FLUSH Physical Examination - Vital Signs Vital Signs: Vital Signs Temp Pulse Resp BP Pulse Ox 98.4 F 70 16 160/65 98 05/03/21 13:32 05/03/21 13:32 05/03/21 13:32 05/03/21 13:32 05/03/21 13:32 - Constitutional General appearance: comfortable, other (lathergic ) - EENT EENT: Present: PERRL, mucous membranes moist - Respiratory Respiratory: Present: lungs clear, normal breath sounds, rhonchi - Cardiovascular Cardiovascular: Present: regular rate, normal S1, normal S2 Extremities: Present: no peripheral edema bilatateraly, no clubbing, cyanosis - Gastrointestinal Gastrointestinal: Present: normoactive bowel sounds - Integumentary Integumentary: Present: normal - Neurologic Cranial nerve examination: PERRL, EOMI, intact Speech examination: other (slurred speech) Detailed motor examination: grossly full strength in Results - Laboratory Findings CBC and BMP: 05/04/21 04:32 05/04/21 04:32 Abnormal Lab Findings: Abnormal Labs 05/03/21 05/03/21 05/03/21 14:30 14:30 14:30 WBC 13.5 H RBC MCV 101 H RDW 16.0 H Lymph % (Auto) 8.8 L [place] % (Auto) 8.3 H Lymph # (Auto) [place] # (Auto) 1.1 H Baso # (Auto) Seg Neutrophils % 81.2 H Seg Neutrophils # 10.9 H Sodium 134 L Chloride 96.6 L Carbon Dioxide 20 L BUN 38 H Creatinine 7.1 H Glucose 288 H POC Glucose Alkaline Phosphatase 226 H Ammonia Troponin T 0.076 H Total Protein 8.3 H Albumin HDL Cholesterol 67 H 05/03/21 05/03/21 05/03/21 14:30 18:00 20:05 WBC RBC MCV RDW Lymph % (Auto) [place] % (Auto) Lymph # (Auto) [place] # (Auto) Baso # (Auto) Seg Neutrophils % Seg Neutrophils # Sodium Chloride Carbon Dioxide BUN Creatinine Glucose POC Glucose 196 H 173 H Alkaline Phosphatase Ammonia 11.0 L Troponin T Total Protein Albumin HDL Cholesterol 05/04/21 05/04/21 05/04/21 04:32 04:32 15:47 WBC RBC 3.39 L MCV 100 H RDW 15.8 H Lymph % (Auto) 8.4 L [place] % (Auto) Lymph # (Auto) 0.8 L [place] # (Auto) Baso # (Auto) 0.2 H Seg Neutrophils % 80.5 H Seg Neutrophils # 8.1 H Sodium Chloride Carbon Dioxide 15 L BUN 43 H Creatinine 8.4 H Glucose 179 H POC Glucose 213 H Alkaline Phosphatase 193 H Ammonia Troponin T Total Protein Albumin 3.3 L HDL Cholesterol 05/04/21 05/05/21 20:40 07:25 WBC RBC MCV RDW Lymph % (Auto) [place] % (Auto) Lymph # (Auto) [place] # (Auto) Baso # (Auto) Seg Neutrophils % Seg Neutrophils # Sodium Chloride Carbon Dioxide BUN Creatinine Glucose POC Glucose 189 H 221 H Alkaline Phosphatase Ammonia Troponin T Total Protein Albumin HDL Cholesterol Assessment and Plan Assessment and Plan Advance Directives: Yes (Full code) VTE prophylaxis?: Chemical Plan of care discussed with patient/family: Yes - Patient Problems # Acute encephalopathy posibly toximetabolic and or drug effect ,r/o infection -Probably secondary to uremia -Creatinine is 8.4 today had dialysis -Needs emergent hemodialysis -Nephrology consult by demonstrator knitting nephrology -Ct brain is unremarkable -MRI brain is unremarkable -exam is none focal -EEG am -Hold neurontine -no sedative or sleeping bills # Uremia -Needs emergent hemodialysis # Uncontrolled diabetes mellitus -Frequent Accu-Cheks and high-dose insulin sliding scale coverage -Check hemoglobin A1c # Hypertension -Continue antihypertensives and adjust medications # DVT prophylaxis -On heparin and GI prophylaxis
[2021-05-05] MEDS ORDERED: LORazepam 2 MG/ML VIAL ONE (09:45)
[2021-05-05] MEDS: CALCIUM CITRATE/VITAMIN D3 315 MG/250 UNITS TAB PO SCH (10:01)
--- NOTE | 2021-05-05 10:37 | Electrocardiograph Report ---
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
--- NOTE | 2021-05-05 10:39 | Progress Note ---
Assessment and Plan End Stage Renal Disease on hemodialysis Altered Mental Status Diabetes Mellitus Hypertension Plan: no indication for HD today Fluid restriction of 1 liter per day Obtain daily weights Monitor I/O's daily Renally dose medications Assess dialysis needs daily Subjective Date of service: 05/05/21 Principal diagnosis: ESRD on HD Interval history: tolerated HD yesterday Objective - Vital Signs Vital signs: Vital Signs - 12hr 05/04/21 05/05/21 05/05/21 23:26 02:37 03:21 Temperature 99.2 F 98.1 F Pulse Rate 77 83 Respiratory 17 20 Rate Blood Pressure 187/85 135/63 O2 Sat by Pulse 100 100 100 Oximetry - Lab 05/04/21 04:32 05/04/21 04:32 Most recent lab results Calcium 9.3 mg/dL (8.4-10.2) 05/04/21 04:32 Medications & Allergies - Medications Allergies/Adverse Reactions: Allergies ibuprofen [From Motrin] Adverse Reaction (Verified 12/27/17 22:53) Unknown Renal issues lisinopril Adverse Reaction (Verified 02/22/19 07:08) Unknown sulfamethoxazole [From Bactrim] Adverse Reaction (Verified 12/27/17 22:53) Unknown Renal issues trimethoprim [From Bactrim] Adverse Reaction (Verified 12/27/17 22:53) Unknown Renal issues Home Medications: Home Medications Medication Instructions Recorded Confirmed Last Taken Type Carvedilol [Coreg] 25 mg PO BID 12/30/17 10/22/19 1 Day Ago History ~02/21/19 Aspirin [Aspirin BABY CHEW TAB] 81 mg PO QDAY 02/22/19 10/22/19 1 Day Ago History ~02/21/19 Bidil 20/37.5MG See Protocol PO TID 02/22/19 10/22/19 1 Day Ago History ~02/21/19 Calcium Citrate/Vitamin D3 1 each PO DAILY 02/22/19 10/22/19 1 Day Ago History [Calcitrate + Vit D Caplet] ~02/21/19 Insulin Aspart (Nf) [NovoLOG 100 10 units SUB-Q TID 02/22/19 10/22/19 1 Day Ago History UNITS/ML VIAL] ~02/21/19 Famotidine [Pepcid] 10 mg PO BID #60 tablet 02/25/19 10/22/19 Unknown Rx Gabapentin 100 mg PO TID #90 capsule 02/25/19 10/22/19 Unknown Rx Sodium Bicarbonate 650 mg PO TID #60 tablet 02/25/19 10/22/19 Unknown Rx Fluticasone [Flonase] 100 mcg NS BID #1 bottle 10/24/19 Unknown Rx Insulin NPH/Regular [NovoLIN 70/30] 18 unit SUB-Q BIDDIAB #2 vial 10/24/19 Unknown Rx Pantoprazole [Protonix TAB] 40 mg PO BID #30 tablet 10/24/19 Unknown Rx guaiFENesin DM [Guaifenesin Dm 10 ml PO Q4H PRN 10 Days #1 bottle 10/24/19 Unknown Rx Syrup] Active Medications: Generic Name Dose Route Start Last Admin Trade Name Freq PRN Reason Stop Dose Admin Acetaminophen 650 mg 05/03/21 22:45 Acetaminophen 325 Mg Tab PO Q4H PRN Pain MILD(1-3)/Fever >100.5/AMARO Calcium Citrate 1 each 05/04/21 10:00 05/05/21 10:01 Calcium Citrate/Vitamin D3 315 Mg/250 Units Tab PO Not Given DAILY MARISSA Carvedilol 25 mg 05/04/21 08:00 05/05/21 08:31 Carvedilol 25 Mg Tab PO Not Given BID@0800,1700 MARISSA Famotidine 10 mg 05/04/21 10:00 05/05/21 10:01 Famotidine 10 Mg Tab PO Not Given BID MARISSA Fluticasone Propionate 100 mcg 05/04/21 10:00 05/05/21 10:01 Fluticasone Propionate Nasal [place] 16 Gm NS Not Given BID MARISSA Gabapentin 100 mg 05/04/21 08:00 05/05/21 08:29 Gabapentin 100 Mg Cap PO Not Given TID MARISSA Guaifenesin 10 ml 05/03/21 22:41 Guaifenesin Dm 200/20 Mg Oral Liqd 10 Ml PO Q4H PRN Cough Heparin Sodium (Porcine) 5,000 unit 05/03/21 23:00 05/05/21 10:01 Heparin 5,000 Unit/1 Ml Vial SUB-Q Not Given Q12HR MARISSA Hydralazine HCl 50 mg 05/03/21 23:00 05/05/21 08:29 Hydralazine 25 Mg Tab PO Not Given Q8HR MARISSA Hydralazine HCl 10 mg 05/05/21 00:19 05/05/21 00:26 Hydralazine 20 Mg/1 Ml Inj IV 10 mg Q6H PRN Administration Hypertension Dextrose/Sodium Chloride 1,000 mls @ 42 mls/hr 05/04/21 17:00 05/05/21 00:08 D5ns IV 42 mls/hr DIRECT MARISSA Administration Insulin Human Lispro 0 unit 05/04/21 07:30 05/05/21 08:31 Insulin Lispro 100 Unit/Ml SUB-Q Not Given ACHS [facility] Protocol Isosorbide Dinitrate 20 mg 05/03/21 23:00 05/05/21 10:01 Isosorbide Dinitrate 20 Mg Tab PO Not Given BID [facility] Metoclopramide HCl 5 mg 05/03/21 22:45 Metoclopramide 10 Mg/2 Ml Inj IV Q6H PRN Nausea And Vomiting Morphine Sulfate 2 mg 05/03/21 22:45 Morphine 2 Mg/1 Ml Inj IV Q4H PRN Pain, Moderate (4-6) Ondansetron HCl 4 mg 05/03/21 22:45 Ondansetron 4 Mg/2 Ml Inj IV Q8H PRN Nausea And Vomiting Pantoprazole Sodium 40 mg 05/04/21 10:00 05/05/21 10:01 Pantoprazole 40 Mg Tab PO Not Given BID [facility] Sodium Bicarbonate 650 mg 05/04/21 08:00 05/05/21 08:29 Sodium Bicarbonate 650 Mg Tab PO Not Given TID MARISSA Sodium Chloride 10 ml 05/03/21 23:00 05/05/21 10:01 Sodium Chloride 0.9% 10 Ml Flush Syringe IV Not Given BID MARISSA Sodium Chloride 10 ml 05/03/21 22:45 Sodium Chloride 0.9% 10 Ml Flush Syringe IV PRN PRN LINE FLUSH
--- NOTE | 2021-05-05 11:59 | Magnetic Resonance Report ---
MR brain wo con INDICATION / CLINICAL INFORMATION: 51 years Female; brain, stroke, rt sided weakness Patient has severe AMS, patient motion, best possib le study. MRI was stopped and patient was given 2mg Ativan and she continued to scream and move durin g MRI.. TECHNIQUE: Multiplanar, multisequence MR images of the brain were obtained. Significant motion present. 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 There may be a very s mall branch MCA infarct in the postcentral gyral region on the right-this best seen on FLAIR imaging. Otherwise, no acute hemorrhage, mass effect, midline shift, hydrocephalus, or acute, large territori al infarct. No chronic infarct or atrophy. There are mild areas of increased signal intensity on FLAIR imaging in the white matter of the cerebr al hemispheres. These are nonspecific findings and may be related to microangiopathy (hypertension, d iabetes, atherosclerosis), given the patient's age. CRANIOCERVICAL JUNCTION: No significant abnormality. VASCULAR FLOW-VOIDS: No significant abnormality. 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 This finding is seen on prior. SINUSES / MASTOIDS: No significant abnormality in the visualized paranasal sinuses or mastoid air belia ls. ADDITIONAL FINDINGS: None. IMPRESSION: 1. No focal mass, hemorrhage, hydrocephalus, or acute ischemia. Signer Name: Goldy Reese MD, III Signed: 05/05/2021 11:55 AM Workstation Name: [facility] [id number]
--- NOTE | 2021-05-05 12:04 | Progress Note ---
Assessment and Plan Assessment and plan: 51-year-old female with past medical history of hypertension, insulin-dependent diabetes and end-stage renal disease on hemodialysis has been having abdominal pain and diarrhea for the past 4 days. Since a.m. patient does not believe he is behaving her normal self. Patient continued to be confused in the emergency room. Patient is lethargic but responsive on verbal commands. Tries to answer questions but unable to answer questions. Responsive diet of life was having diet also fell in the bathroom. No loss of consciousness at that point. But appeared confused. No fever or chills. No exposure to Covid. (1) Acute metabolic encephalopathy Current Visit: Yes Status: Acute Plan to address problem: Probably secondary to uremia Creatinine is 7.1 and BUN is high Needs emergent hemodialysis Nephrology consult by weatherization installer nephrology Family unable to tell me about the consulting comedian Neurology consult MRI brain if necessary (2) Uremia Current Visit: Yes Status: Acute Plan to address problem: Needs emergent hemodialysis (3) Diabetes mellitus Current Visit: Yes Status: Acute Qualifiers: Diabetes mellitus type: type 2 Coma presence: without coma Plan to address problem: Frequent Accu-Cheks and high-dose insulin sliding scale coverage Check hemoglobin A1c (4) Hypertension Current Visit: Yes Status: Chronic Qualifiers: Hypertension type: primary hypertension Qualified Code(s): I10 - Essential (primary) hypertension Plan to address problem: Continue antihypertensives and adjust medications (5) End Stage Renal Disease on hemodialysis (6) Metabolic Acidosis (7) Type 2 NTSEMI (8) DVT prophylaxis Current Visit: Yes Status: Acute Plan to address problem: On heparin and GI prophylaxis 05/04: Patient seen and examined, Still lethargic, awaiting HD to see if improvement, imaging studies of the head is negative 05/05: MRI done and negative patient still lethargic this could be post Ativan given for MRI. MRI has been reviewed and is negative. Anticipate with HD tomorrow patient should be fully ready for discharge. at bedside states that she did wake up some spoke a bit before falling back asleep and did eat s ome food. Will monitor additional 1 day History Interval history: Patient seen and examined still quite lethargic and sleepy although following MRI woke up with a bit but fell back asleep this could be secondary to Ativan given during MRI as patient was screaming uncontrollably. Hospitalist Physical - Physical exam Narrative exam: General appearance: Present: no acute distress, well-nourished - EENT Eyes: Present: PERRL ENT: hearing intact, clear oral mucosa - Neck Neck: Present: supple, normal ROM - Respiratory Respiratory effort: normal Respiratory: bilateral: CTA - Cardiovascular Heart rate: 78 Rhythm: regular Heart Sounds: Present: S1 & S2. Absent: rub, click - Extremities Extremities: pulses symmetrical, No edema Peripheral Pulses: within normal limits - Abdominal General gastrointestinal: Present: soft, non-tender, non-distended, normal bowel sounds Female genitourinary: Present: normal - Rectal Rectal Exam: deferred - Integumentary Integumentary: Present: clear, warm, dry - Musculoskeletal Musculoskeletal: generalized weakness - Psychiatric Psychiatric: other (Lethargic and altered sensorium, opens eyes but does not respond to questions) - Neurologic Neurologic: CNII-XII intact, moves all extremities - Constitutional Vitals: Temp Pulse Resp BP Pulse Ox 98.1 F 83 20 135/63 100 05/05/21 03:21 05/05/21 03:21 05/05/21 03:21 05/05/21 03:21 05/05/21 03:21 General appearance: Present: no acute distress, well-nourished HEART Score - HEART Score Troponin: Troponin T 0.076 ng/mL (0.00-0.029) H 05/03/21 14:30 Results - Labs CBC & Chem 7: 05/04/21 04:32 05/04/21 04:32 Labs: Laboratory Last Values WBC 10.0 K/mm3 (4.5-11.0) 05/04/21 04:32 RBC 3.39 M/mm3 (3.65-5.03) L 05/04/21 04:32 Hgb 10.8 gm/dl (10.1-14.3) 05/04/21 04:32 Hct 33.8 % (30.3-42.9) 05/04/21 04:32 MCV 100 fl (79-97) H 05/04/21 04:32 MCH 32 pg (28-32) 05/04/21 04:32 MCHC 32 % (30-34) 05/04/21 04:32 RDW 15.8 % (13.2-15.2) H 05/04/21 04:32 Plt Count 232 K/mm3 (140-440) 05/04/21 04:32 Lymph % (Auto) 8.4 % (13.4-35.0) L 05/04/21 04:32 [place] % (Auto) 7.2 % (0.0-7.3) 05/04/21 04:32 Eos % (Auto) 2.2 % (0.0-4.3) 05/04/21 04:32 Baso % (Auto) 1.7 % (0.0-1.8) 05/04/21 04:32 Lymph # (Auto) 0.8 K/mm3 (1.2-5.4) L 05/04/21 04:32 [place] # (Auto) 0.7 K/mm3 (0.0-0.8) 05/04/21 04:32 Eos # (Auto) 0.2 K/mm3 (0.0-0.4) 05/04/21 04:32 Baso # (Auto) 0.2 K/mm3 (0.0-0.1) H 05/04/21 04:32 Seg Neutrophils % 80.5 % (40.0-70.0) H 05/04/21 04:32 Seg Neutrophils # 8.1 K/mm3 (1.8-7.7) H 05/04/21 04:32 VBG pH 7.345 (7.320-7.420) 05/03/21 14:30 Sodium 137 mmol/L (137-145) 05/04/21 04:32 Potassium 4.5 mmol/L (3.6-5.0) 05/04/21 04:32 Chloride 101.2 mmol/L (98-107) 05/04/21 04:32 Carbon Dioxide 15 mmol/L (22-30) L 05/04/21 04:32 Anion Gap 25 mmol/L 05/04/21 04:32 BUN 43 mg/dL (7-17) H 05/04/21 04:32 Creatinine 8.4 mg/dL (0.6-1.2) H 05/04/21 04:32 Estimated GFR 6 ml/min 05/04/21 04:32 BUN/Creatinine Ratio 5 % 05/04/21 04:32 Glucose 179 mg/dL (65-100) H 05/04/21 04:32 POC Glucose 223 mg/dL (70-105) H 05/05/21 11:16 Calcium 9.3 mg/dL (8.4-10.2) 05/04/21 04:32 Total Bilirubin 0.30 mg/dL (0.1-1.2) 05/04/21 04:32 AST 15 units/L (5-40) 05/04/21 04:32 ALT 17 units/L (7-56) 05/04/21 04:32 Alkaline Phosphatase 193 units/L (35-129) H 05/04/21 04:32 Ammonia 11.0 umol/L (25-60) L 05/03/21 14:30 Total Creatine Kinase 95 units/L (30-135) 05/03/21 14:30 CK-MB (CK-2) 2.9 ng/mL (0.0-4.0) 05/03/21 14:30 CK-MB (CK-2) Rel Index 3.0 (0-4) 05/03/21 14:30 Troponin T 0.076 ng/mL (0.00-0.029) H 05/03/21 14:30 Total Protein 7.2 g/dL (6.3-8.2) 05/04/21 04:32 Albumin 3.3 g/dL (3.9-5) L 05/04/21 04:32 Albumin/Globulin Ratio 0.8 % 05/04/21 04:32 Triglycerides 133 mg/dL (2-149) 05/03/21 14:30 Cholesterol 187 mg/dL (50-199) 05/03/21 14:30 LDL Cholesterol Direct 91 mg/dL (50-130) 05/03/21 14:30 HDL Cholesterol 67 mg/dL (40-59) H 05/03/21 14:30 Cholesterol/HDL Ratio 2.79 % 05/03/21 14:30 TSH 0.697 mlU/mL (0.270-4.200) 05/03/21 14:30 Free T4 0.95 ng/dL (0.76-1.46) 05/03/21 14:30 Hepatitis A IgM Ab Non-reactive (NonReactive) 05/04/21 11:12 Hep Bs Antigen Nonreactive (Negative) 05/04/21 11:12 Hep B Core IgM Ab Non-reactive (NonReactive) 05/04/21 11:12 Hepatitis C Antibody Non-reactive (NonReactive) 05/04/21 11:12 Active Medications - Current Medications Current Medications: Generic Name Dose Route Start Last Admin Trade Name Freq PRN Reason Stop Dose Admin Acetaminophen 650 mg 05/03/21 22:45 Acetaminophen 325 Mg Tab PO Q4H PRN Pain MILD(1-3)/Fever >100.5/AMARO Calcium Citrate 1 each 05/04/21 10:00 05/05/21 10:01 Calcium Citrate/Vitamin D3 315 Mg/250 Units Tab PO Not Given DAILY MARISSA Carvedilol 25 mg 05/04/21 08:00 05/05/21 08:31 Carvedilol 25 Mg Tab PO Not Given BID@0800,1700 MARISSA Famotidine 10 mg 05/04/21 10:00 05/05/21 10:01 Famotidine 10 Mg Tab PO Not Given BID MARISSA Fluticasone Propionate 100 mcg 05/04/21 10:00 05/05/21 10:01 Fluticasone Propionate Nasal [place] 16 Gm NS Not Given BID MARISSA Gabapentin 100 mg 05/04/21 08:00 05/05/21 08:29 Gabapentin 100 Mg Cap PO Not Given TID MARISSA Guaifenesin 10 ml 05/03/21 22:41 Guaifenesin Dm 200/20 Mg Oral Liqd 10 Ml PO Q4H PRN Cough Heparin Sodium (Porcine) 5,000 unit 05/03/21 23:00 05/05/21 10:01 Heparin 5,000 Unit/1 Ml Vial SUB-Q Not Given Q12HR MARISSA Hydralazine HCl 50 mg 05/03/21 23:00 05/05/21 08:29 Hydralazine 25 Mg Tab PO Not Given Q8HR MARISSA Hydralazine HCl 10 mg 05/05/21 00:19 05/05/21 00:26 Hydralazine 20 Mg/1 Ml Inj IV 10 mg Q6H PRN Administration Hypertension Dextrose/Sodium Chloride 1,000 mls @ 42 mls/hr 05/04/21 17:00 05/05/21 00:08 D5ns IV 42 mls/hr DIRECT MARISSA Administration Insulin Human Lispro 0 unit 05/04/21 07:30 05/05/21 10:51 Insulin Lispro 100 Unit/Ml SUB-Q Not Given ACHS [facility] Protocol Isosorbide Dinitrate 20 mg 05/03/21 23:00 05/05/21 10:01 Isosorbide Dinitrate 20 Mg Tab PO Not Given BID [facility] Metoclopramide HCl 5 mg 05/03/21 22:45 Metoclopramide 10 Mg/2 Ml Inj IV Q6H PRN Nausea And Vomiting Morphine Sulfate 2 mg 05/03/21 22:45 Morphine 2 Mg/1 Ml Inj IV Q4H PRN Pain, Moderate (4-6) Ondansetron HCl 4 mg 05/03/21 22:45 Ondansetron 4 Mg/2 Ml Inj IV Q8H PRN Nausea And Vomiting Pantoprazole Sodium 40 mg 05/04/21 10:00 05/05/21 10:01 Pantoprazole 40 Mg Tab PO Not Given BID [facility] Sodium Bicarbonate 650 mg 05/04/21 08:00 05/05/21 08:29 Sodium Bicarbonate 650 Mg Tab PO Not Given TID [facility] Sodium Chloride 10 ml 05/03/21 23:00 05/05/21 10:01 Sodium Chloride 0.9% 10 Ml Flush Syringe IV Not Given BID MARISSA Sodium Chloride 10 ml 05/03/21 22:45 Sodium Chloride 0.9% 10 Ml Flush Syringe IV PRN PRN LINE FLUSH
[2021-05-06] MEDS: hydrALAZINE 20 MG/1 ML INJ IV PRN (00:22)
[2021-05-06] MEDS: D5W/0.9% NACL 1,000 ML IV SCH (02:18)
[2021-05-06] MEDS: hydrALAZINE 25 MG TAB PO SCH (05:13)
[2021-05-06] MEDS: carvediloL 25 MG TAB PO SCH (09:00)
[2021-05-06] MEDS: INSULIN LISPRO 100 UNIT/ML SUB-Q SCH (09:00)
[2021-05-06] MEDS: SODIUM BICARBONATE 650 MG TAB PO SCH (09:00)
[2021-05-06] MEDS: HEPARIN 5,000 UNIT/1 ML VIAL SUB-Q SCH (09:01)
[2021-05-06] MEDS: PANTOPRAZOLE 40 MG TAB PO SCH (09:01)
[2021-05-06] MEDS: FLUTICASONE PROPIONATE NASAL SPRAY 16 GM NS SCH (09:01)
[2021-05-06] MEDS: FAMOTIDINE 10 MG TAB PO SCH (09:01)
[2021-05-06] MEDS: ISOSORBIDE DINITRATE 20 MG TAB PO SCH (09:01)
[2021-05-06] MEDS: CALCIUM CITRATE/VITAMIN D3 315 MG/250 UNITS TAB PO SCH (09:01)
--- NOTE | 2021-05-06 09:07 | Discharge Summary ---
Providers - Providers Date of Admission: 05/04/21 16:27 Attending physician: KIKO CAMPOS MD 05/03/21 17:27 Speech Therapy Evaluation and Treat [CONS] Stat Reason For Exam: failed swallow screen 05/03/21 22:45 Consult to Physician [CONS] Urgent Comment: Consulting Provider: THIERNO CELESTIN Physician Instructions: Reason For Exam: ESRD needing hemodialysis 05/04/21 16:15 Consult to Physician [CONS] Routine Comment: Consulting Provider: ARIAN [place] Physician Instructions: Reason For Exam: encephalopathy Primary care physician: CLIENT EXECUTIVE Hospitalization Reason for admission: Altered mental status Condition: Stable Hospital course: 51-year-old female with past medical history of hypertension, insulin-dependent diabetes and end-stage renal disease on hemodialysis has been having abdominal pain and diarrhea for the past 4 days. Since a.m. patient does not believe he is behaving her normal self. Patient continued to be confused in the emergency room. Patient is lethargic but responsive on verbal commands. Tries to answer questions but unable to answer questions. Responsive diet of life was having di et also fell in the bathroom. No loss of consciousness at that point. But appeared confused. No fever or chills. No exposure to Covid. (1) Acute metabolic encephalopathy Current Visit: Yes Status: Acute Plan to address problem: Probably secondary to uremia Creatinine is 7.1 and BUN is high Needs emergent hemodialysis Nephrology consult by office professional nephrology Family unable to tell me about the consulting counselor aide Neurology consult MRI brain if necessary (2) Uremia Current Visit: Yes Status: Acute Plan to address problem: Needs emergent hemodialysis (3) Diabetes mellitus Current Visit: Yes Status: Acute Qualifiers: Diabetes mellitus type: type 2 Coma presence: without coma Plan to address problem: Frequent Accu-Cheks and high-dose insulin sliding scale coverage Check hemoglobin A1c (4) Hypertension Current Visit: Yes Status: Chronic Qualifiers: Hypertension type: primary hypertension Qualified Code(s): I10 - Essential (primary) hypertension Plan to address problem: Continue antihypertensives and adjust medications (5) End Stage Renal Disease on hemodialysis (6) Metabolic Acidosis (7) Type 2 NTSEMI (8) DVT prophylaxis Current Visit: Yes Status: Acute Plan to address problem: On heparin and GI prophylaxis 05/04: Patient seen and examined, Still lethargic, awaiting HD to see if improvement, imaging studies of the head is negative 05/05: MRI done and negative patient still lethargic this could be post Ativan given for MRI. MRI has been reviewed and is negative. Anticipate with HD tomorrow patient should be fully ready for discharge. at bedside states that she did wake up some spoke a bit before falling back asleep and did eat some food. Will monitor additional 1 day 05/06: Patient seen and examined today she is much more awake and alert responsive she does not recall much of the activity but knows that she was in the hospital. No seizure activity has been observed she is pending an EEG. I have also recommended an outpatient follow-up with neurologist. She will continue hemodialysis outpatient Disposition: HOME / SELF CARE / HOMELESS Final Discharge Diagnosis (Prints w/discharge instructions): Acute metabolic encephalopathy end-stage renal disease patient with underlying uremia Time spent for discharge: 35 minutes Core Measure Documentation - Palliative Care Palliative Care/ Comfort Measures: Not Applicable - Core Measures Any of the following diagnoses?: none Exam - Physical Exam Narrative exam: General appearance: Present: no acute distress, well-nourished - EENT Eyes: Present: PERRL ENT: hearing intact, clear oral mucosa - Neck Neck: Present: supple, normal ROM - Respiratory Respiratory effort: normal Respiratory: bilateral: CTA - Cardiovascular Heart rate: 78 Rhythm: regular Heart Sounds: Present: S1 & S2. Absent: rub, click - Extremities Extremities: pulses symmetrical, No edema Peripheral Pulses: within normal limits - Abdominal General gastrointestinal: Present: soft, non-tender, non-distended, normal bowel sounds Female genitourinary: Present: normal - Rectal Rectal Exam: deferred - Integumentary Integumentary: Present: clear, warm, dry - Musculoskeletal Musculoskeletal: Awake alert oriented moves extremities - Psychiatric Psychiatric: other awake although a bit withdrawn - Neurologic Neurologic: CNII-XII intact, moves all extremities - Constitutional Vitals: Temp Pulse Resp BP Pulse Ox 98.7 F 64 18 154/80 100 05/06/21 07:36 05/06/21 08:58 05/06/21 07:36 05/06/21 07:36 05/06/21 08:59 Plan Activity: advance as tolerated, fall precautions Diet: low fat Special Instructions: record daily weights, record daily BP diary, physical therapy, occupational therapy Follow up with: PRIMARY CAREMD [Primary Care Provider] - 3-5 Days CYNTHIA LOPEZ MD [Staff Physician] - 7 Days ALEXEI ZUNIGA MD [Staff Physician] - 7 Days Prescriptions: hydrALAZINE [Apresoline TAB] 50 mg PO Q8HR #90 tablet Isosorbide Dinitrate [Isordil] 20 mg PO BID #60 tablet
--- NOTE | 2021-05-06 10:26 | Progress Note ---
Assessment and Plan End Stage Renal Disease on hemodialysis Altered Mental Status Diabetes Mellitus Hypertension Plan: HD today for clearance and volume removal Fluid restriction of 1 liter per day Obtain daily weights Monitor I/O's daily Renally dose medications Assess dialysis needs daily Subjective Date of service: 05/06/21 Principal diagnosis: ESRD on HD Interval history: in HD this AM Objective - Vital Signs Vital signs: Vital Signs - 12hr 05/06/21 05/06/21 05/06/21 00:10 03:27 05:13 Temperature 98.0 F 98.2 F Pulse Rate 78 91 H Respiratory 19 14 Rate Blood Pressure 151/78 151/78 Blood Pressure 175/76 [Right] O2 Sat by Pulse 100 98 Oximetry 05/06/21 05/06/21 05/06/21 07:36 08:58 08:59 Temperature 98.7 F Pulse Rate 93 H 64 Respiratory 18 Rate Blood Pressure 154/80 Blood Pressure [Right] O2 Sat by Pulse 99 100 Oximetry - Lab 05/04/21 04:32 05/04/21 04:32 Most recent lab results Calcium 9.3 mg/dL (8.4-10.2) 05/04/21 04:32 Medications & Allergies - Medications Allergies/Adverse Reactions: Allergies ibuprofen [From Motrin] Adverse Reaction (Verified 12/27/17 22:53) Unknown Renal issues lisinopril Adverse Reaction (Verified 02/22/19 07:08) Unknown sulfamethoxazole [From Bactrim] Adverse Reaction (Verified 12/27/17 22:53) Unknown Renal issues trimethoprim [From Bactrim] Adverse Reaction (Verified 12/27/17 22:53) Unknown Renal issues Home Medications: Home Medications Medication Instructions Recorded Confirmed Last Taken Type Carvedilol [Coreg] 25 mg PO BID 12/30/17 10/22/19 1 Day Ago History ~02/21/19 Aspirin [Aspirin BABY CHEW TAB] 81 mg PO QDAY 02/22/19 10/22/19 1 Day Ago History ~02/21/19 Bidil 20/37.5MG See Protocol PO TID 02/22/19 10/22/19 1 Day Ago History ~02/21/19 Calcium Citrate/Vitamin D3 1 each PO DAILY 02/22/19 10/22/19 1 Day Ago History [Calcitrate + Vit D Caplet] ~02/21/19 Insulin Aspart (Nf) [NovoLOG 100 10 units SUB-Q TID 02/22/19 10/22/19 1 Day Ago History UNITS/ML VIAL] ~02/21/19 Famotidine [Pepcid] 10 mg PO BID #60 tablet 02/25/19 10/22/19 Unknown Rx Sodium Bicarbonate 650 mg PO TID #60 tablet 02/25/19 10/22/19 Unknown Rx Fluticasone [Flonase] 100 mcg NS BID #1 bottle 10/24/19 Unknown Rx Insulin NPH/Regular [NovoLIN 70/30] 18 unit SUB-Q BIDDIAB #2 vial 10/24/19 Unknown Rx Pantoprazole [Protonix TAB] 40 mg PO BID #30 tablet 10/24/19 Unknown Rx guaiFENesin DM [Guaifenesin Dm 10 ml PO Q4H PRN 10 Days #1 bottle 10/24/19 Unknown Rx Syrup] Isosorbide Dinitrate [Isordil] 20 mg PO BID #60 tablet 05/06/21 Unknown Rx hydrALAZINE [Apresoline TAB] 50 mg PO Q8HR #90 tablet 05/06/21 Unknown Rx Active Medications: Generic Name Dose Route Start Last Admin Trade Name Freq PRN Reason Stop Dose Admin Acetaminophen 650 mg 05/03/21 22:45 Acetaminophen 325 Mg Tab PO Q4H PRN Pain MILD(1-3)/Fever >100.5/AMARO Calcium Citrate 1 each 05/04/21 10:00 05/06/21 09:01 Calcium Citrate/Vitamin D3 315 Mg/250 Units Tab PO Not Given DAILY MARISSA Carvedilol 25 mg 05/04/21 08:00 05/06/21 09:00 Carvedilol 25 Mg Tab PO Not Given BID@0800,1700 MARISSA Famotidine 10 mg 05/04/21 10:00 05/06/21 09:01 Famotidine 10 Mg Tab PO Not Given BID MARISSA Fluticasone Propionate 100 mcg 05/04/21 10:00 05/06/21 09:01 Fluticasone Propionate Nasal [place] 16 Gm NS Not Given BID MARISSA Heparin Sodium (Porcine) 5,000 unit 05/03/21 23:00 05/06/21 09:01 Heparin 5,000 Unit/1 Ml Vial SUB-Q Not Given Q12HR MARISSA Hydralazine HCl 50 mg 05/03/21 23:00 05/06/21 05:13 Hydralazine 25 Mg Tab PO Not Given Q8HR MARISSA Hydralazine HCl 10 mg 05/05/21 00:19 05/06/21 00:22 Hydralazine 20 Mg/1 Ml Inj IV 10 mg Q6H PRN Administration Hypertension Dextrose/Sodium Chloride 1,000 mls @ 42 mls/hr 05/04/21 17:00 05/06/21 02:18 D5ns IV 42 mls/hr DIRECT MARISSA Administration Insulin Human Lispro 0 unit 05/04/21 07:30 05/06/21 09:00 Insulin Lispro 100 Unit/Ml SUB-Q 6 unit ACHS MARISSA Administration Protocol Isosorbide Dinitrate 20 mg 05/03/21 23:00 05/06/21 09:01 Isosorbide Dinitrate 20 Mg Tab PO Not Given BID MARISSA Metoclopramide HCl 5 mg 05/03/21 22:45 Metoclopramide 10 Mg/2 Ml Inj IV Q6H PRN Nausea And Vomiting Morphine Sulfate 2 mg 05/03/21 22:45 Morphine 2 Mg/1 Ml Inj IV Q4H PRN Pain, Moderate (4-6) Ondansetron HCl 4 mg 05/03/21 22:45 05/05/21 17:59 Ondansetron 4 Mg/2 Ml Inj IV 4 mg Q8H PRN Administration Nausea And Vomiting Pantoprazole Sodium 40 mg 05/04/21 10:00 05/06/21 09:01 Pantoprazole 40 Mg Tab PO Not Given BID MARISSA Sodium Bicarbonate 650 mg 05/04/21 08:00 05/06/21 09:00 Sodium Bicarbonate 650 Mg Tab PO Not Given TID MARISSA Sodium Chloride 10 ml 05/03/21 23:00 05/06/21 09:01 Sodium Chloride 0.9% 10 Ml Flush Syringe IV Not Given BID MARISSA Sodium Chloride 10 ml 05/03/21 22:45 Sodium Chloride 0.9% 10 Ml Flush Syringe IV PRN PRN LINE FLUSH
--- NOTE | 2021-05-06 14:14 | Progress Note ---
Assessment and Plan Assessment and Plan Advance Directives: Yes (Full code) VTE prophylaxis?: Chemical Plan of care discussed with patient/family: Yes - Patient Problems # Acute encephalopathy posibly toximetabolic and or drug effect ,r/o infection -Probably secondary to uremia -Creatinine is 8.4 intialy today had dialysis -Needs emergent hemodialysis -Nephrology consult by [facility] -Ct brain is unremarkable -MRI brain is unremarkable -exam is none focal -EEG not done -Hold neurontine -no sedative or sleeping bills -pt. improved still slightly sluggish no focal weakness no astrexsis is noted # Uremia -Needs emergent hemodialysis # Uncontrolled diabetes mellitus -Frequent Accu-Cheks and high-dose insulin sliding scale coverage -Check hemoglobin A1c # Hypertension -Continue antihypertensives and adjust medications # DVT prophylaxis -On heparin and GI prophylaxis will sign off Subjective Date of service: 05/06/21 Principal diagnosis: ESRD on HD Interval history: she is more alert reactive oriented to place and birthdate disoriented to date sluggish had dialysis today exam is nomne focal MRI brain is unremarkable eeg not done she is better Objective - Vital Sign Vital Signs - 12hr 05/06/21 05/06/21 05/06/21 03:27 05:13 07:36 Temperature 98.2 F 98.7 F Pulse Rate 91 H 93 H Respiratory 14 18 Rate Blood Pressure 151/78 151/78 154/80 O2 Sat by Pulse 98 99 Oximetry O2 Sat by Pulse Oximetry [ Anterior Bilateral] 05/06/21 05/06/21 05/06/21 08:58 08:59 09:15 Temperature 98.2 F Pulse Rate 64 88 Respiratory 18 Rate Blood Pressure 171/72 O2 Sat by Pulse 100 Oximetry O2 Sat by Pulse 98 Oximetry [ Anterior Bilateral] 05/06/21 05/06/21 05/06/21 09:30 09:45 10:00 Temperature Pulse Rate 85 89 92 H Respiratory Rate Blood Pressure 184/79 182/90 179/70 O2 Sat by Pulse Oximetry O2 Sat by Pulse Oximetry [ Anterior Bilateral] 05/06/21 05/06/21 05/06/21 10:15 10:30 10:45 Temperature Pulse Rate 98 H 101 H 111 H Respiratory Rate Blood Pressure 175/91 173/83 196/94 O2 Sat by Pulse Oximetry O2 Sat by Pulse Oximetry [ Anterior Bilateral] 05/06/21 05/06/21 05/06/21 11:00 11:15 11:30 Temperature Pulse Rate 123 H 120 H 121 H Respiratory Rate Blood Pressure 170/88 163/85 165/79 O2 Sat by Pulse Oximetry O2 Sat by Pulse Oximetry [ Anterior Bilateral] 05/06/21 05/06/21 05/06/21 11:45 12:00 13:19 Temperature Pulse Rate 120 H 101 H 110 H Respiratory Rate Blood Pressure 172/84 174/83 O2 Sat by Pulse Oximetry O2 Sat by Pulse Oximetry [ Anterior Bilateral] - General Apperance Constitutional: comfortable - EENT EENT: PERRL, mucous membranes moist - Respiratory Respiratory: chest non-tender, lungs clear, rhonchi - Cardiovascular Cardiovascular: regular rate, normal S1, normal S2 Extremities: no peripheral edema bilat, no clubbing, cyanosis - Gastrointestinal Gastrointestinal: normoactive bowel sounds - Integumentary Integumentary: normal - Neurologic Cranial nerve examination: intact Speech examination: intact Detailed motor examination: grossly full strength in - Laboratory Findings CBC and BMP: 05/04/21 04:32 05/04/21 04:32 Abnormal Lab Findings: Abnormal Labs 05/03/21 05/03/21 05/03/21 14:30 14:30 14:30 WBC 13.5 H RBC MCV 101 H RDW 16.0 H Lymph % (Auto) 8.8 L [place] % (Auto) 8.3 H Lymph # (Auto) [place] # (Auto) 1.1 H Baso # (Auto) Seg Neutrophils % 81.2 H Seg Neutrophils # 10.9 H Sodium 134 L Chloride 96.6 L Carbon Dioxide 20 L BUN 38 H Creatinine 7.1 H Glucose 288 H POC Glucose Alkaline Phosphatase 226 H Ammonia Troponin T 0.076 H Total Protein 8.3 H Albumin HDL Cholesterol 67 H Vitamin B12 05/03/21 05/03/21 05/03/21 14:30 18:00 20:05 WBC RBC MCV RDW Lymph % (Auto) [place] % (Auto) Lymph # (Auto) [place] # (Auto) Baso # (Auto) Seg Neutrophils % Seg Neutrophils # Sodium Chloride Carbon Dioxide BUN Creatinine Glucose POC Glucose 196 H 173 H Alkaline Phosphatase Ammonia 11.0 L Troponin T Total Protein Albumin HDL Cholesterol Vitamin B12 05/04/21 05/04/21 05/04/21 04:32 04:32 15:47 WBC RBC 3.39 L MCV 100 H RDW 15.8 H Lymph % (Auto) 8.4 L [place] % (Auto) Lymph # (Auto) 0.8 L [place] # (Auto) Baso # (Auto) 0.2 H Seg Neutrophils % 80.5 H Seg Neutrophils # 8.1 H Sodium Chloride Carbon Dioxide 15 L BUN 43 H Creatinine 8.4 H Glucose 179 H POC Glucose 213 H Alkaline Phosphatase 193 H Ammonia Troponin T Total Protein Albumin 3.3 L HDL Cholesterol Vitamin B12 05/04/21 05/05/21 05/05/21 20:40 07:25 11:16 WBC RBC MCV RDW Lymph % (Auto) [place] % (Auto) Lymph # (Auto) [place] # (Auto) Baso # (Auto) Seg Neutrophils % Seg Neutrophils # Sodium Chloride Carbon Dioxide BUN Creatinine Glucose POC Glucose 189 H 221 H 223 H Alkaline Phosphatase Ammonia Troponin T Total Protein Albumin HDL Cholesterol Vitamin B12 05/05/21 05/05/21 05/06/21 16:02 20:26 07:32 WBC RBC MCV RDW Lymph % (Auto) [place] % (Auto) Lymph # (Auto) [place] # (Auto) Baso # (Auto) Seg Neutrophils % Seg Neutrophils # Sodium Chloride Carbon Dioxide BUN Creatinine Glucose POC Glucose 265 H 228 H 264 H Alkaline Phosphatase Ammonia Troponin T Total Protein Albumin HDL Cholesterol Vitamin B12 05/06/21 05/06/21 08:45 08:45 WBC RBC MCV RDW Lymph % (Auto) [place] % (Auto) Lymph # (Auto) [place] # (Auto) Baso # (Auto) Seg Neutrophils % Seg Neutrophils # Sodium Chloride Carbon Dioxide BUN Creatinine Glucose POC Glucose Alkaline Phosphatase Ammonia 21.0 L Troponin T Total Protein Albumin HDL Cholesterol Vitamin B12 < 2000 H
[2021-05-06 14:24] VITALS: BP 169/76
== END 2021-05-06 14:36 | disposition home or self-care (01) | DRG 280 ==
LOC: ED 13:24 → 4A 16:18 → OBSVTOIN 05-04 16:27
PROVIDERS: ADMIT Internal Medicine; ATTEND Internal Medicine
PROC: 5A1D70Z Performance of Urinary Filtration, Intermittent, Less than 6 Hours Per Day (ICD-10-PCS; principal; 2021-05-04)
PROC: 5A1D70Z Performance of Urinary Filtration, Intermittent, Less than 6 Hours Per Day (ICD-10-PCS; 2021-05-06)
DX: I13.2 Hypertensive heart and chronic kidney disease with heart failure and with stage 5 chronic kidney disease, or end stage renal disease (principal); G93.41 Metabolic encephalopathy; I21.A1 Myocardial infarction type 2; N18.6 End stage renal disease; E87.2 Acidosis; Z88.8 Allergy status to other drugs, medicaments and biological substances; I50.9 Heart failure, unspecified; E11.22 Type 2 diabetes mellitus with diabetic chronic kidney disease; Z99.2 Dependence on renal dialysis; Z98.51 Tubal ligation status; Z79.4 Long term (current) use of insulin; Z79.82 Long term (current) use of aspirin
CPT/HCPCS: 36415; 70450; 70551; 74176; 80053; 80061; 80074; 82140; 82550; 82553; 82607; 82805; 82962; 84439; 84443; 84484; 85025; 85652; 86038; 93005; G0378; J3490; Q0162; Q9967; J0360; J1644; J1815; J2060; J2405; J7030; J7042